=== PATIENT | female | born 1950 | race Caucasian/White ===

== ENCOUNTER 2016-05-14 21:40 | Inpatient (IN) | payer MEDICARE ==
[~2016-05-14] VITALS: Ht 152.4 cm; Wt 57.4 kg
[2016-05-14 22:35] LABS: APPEARANCE CLEAR (CLEAR); BILIRUBIN NEGATIVE (NEGATIVE); COLOR YELLOW (YELLOW); GLUCOSE 50 mg/dL (NEGATIVE); KETONE NEGATIVE (NEGATIVE); LEUKOCYTE ESTERASE NEGATIVE (NEGATIVE); NITRITE NEGATIVE (NEGATIVE); PROTEIN NEGATIVE (NEGATIVE); SPECIFIC GRAVITY 1.005 (1.005-1.020); UROBILINOGEN NORMAL (NORMAL)
[2016-05-14 23:14] LABS: BASOPHILS 0.3 % (0.0-2.0); EOSINOPHILS 0.1 % (0-7); HEMATOCRIT 35.8 % (36.0-48.0); HEMOGLOBIN 12.5 g/dL (12-16); IMMATURE GRANULOCYTES 0.3 % (0-5); LYMPHOCYTES 11.8 % (15-50); MCH 35.1 pg (26.0-34.0); MCHC 34.9 g/dL (31.0-37.0); MCV 100.6 fL (80.0-100.0); MONOCYTES 11.7 % (2-11); NEUTROPHILS 75.8 % (40-80); PLATELET COUNT 260 10x3/uL (130-400); RBC 3.56 10x6/uL (4.00-5.40); RDW 12.5 % (11.5-14.5); WBC 6.7 10x3/uL (4.8-10.8)
[2016-05-15] VITALS (23 sets, daily range): BP systolic 89–121; BP diastolic 52–93; Ht 152.4 cm; Wt 57.4 kg
[2016-05-15 00:01] LABS: ALKALINE PHOSPHATASE 138 U/L (46-116); ALT (SGPT) 35 U/L (10-68); BILIRUBIN - TOTAL 0.29 mg/dL (0.2-1.3); CALCIUM 8.8 mg/dL (8.5-10.1); CARBON DIOXIDE 29.4 mmol/L (21.0-32.0); CREATINE KINASE 77 UL (21-215); CREATININE - SERUM 0.8 mg/dL (0.6-1.3); MAGNESIUM - SERUM 1.7 mg/dL (1.8-2.4); POTASSIUM - SERUM 3.4 mmol/L (3.5-5.1); PRO BNP 339 pg/mL (0-125); PROTEIN - SERUM 7.4 g/dL (6.4-8.2); SODIUM 123 mmol/L (136-145); THYROID STIMULATING HORMONE 2.17 uIU/mL (0.36-3.74); UREA NITROGEN 6 mg/dL (7-18); eGFR NON AFRICAN AMERICAN 76 mL/min (90-120)
[2016-05-15 00:04] LABS: CALC OSMOLALITY 243 mosm/kg (275-300); CHLORIDE - SERUM 80 mmol/L (98-107); GLUCOSE 67 mg/dL (74-106); TROPONIN-I < 0.017 ng/mL (0.000-0.060)
[2016-05-15 00:36] LABS: PHENYTOIN (DILANTIN) 11.6 ug/mL (10.0-20.0)
[2016-05-15] MEDS ORDERED: ZANTAC300 MG PO (02:12)
--- NOTE | 2016-05-15 02:35 | NUR ---
PT ARRIVED TO ROOM 2311 VIA BED FROM ER. NO FAMILY WITH PT. PT AAOX4 SPEECH CLEAR ABLE TO MAKE NEEDS KNOWN. ADMISSION HISTORY AND ASSESSMENT COMPLETED. DX HYPOGLYCEMIA AND HYPONATREMIA.
--- NOTE | 2016-05-15 02:40 | NUR ---
CALL PLACED TO ER TO CLARIFY ORDERS. NOTIFIED TO CALL DR. LEON WITH NEXT GLUCOSE AND NO OTHER ORDERS RECEIVED
[2016-05-15] MEDS ORDERED: LISINOPRIL10 MG PO (02:53)
[2016-05-15] MEDS ORDERED: TENORMIN50 MG PO (02:55)
[2016-05-15] MEDS ORDERED: BUSPAR10 MG PO (02:57)
[2016-05-15] MEDS ORDERED: PLAVIX75 MG PO (02:58)
[2016-05-15] MEDS ORDERED: DILANTIN100 MG PO (02:58)
[2016-05-15 03:43] LABS: ANION GAP 11.6 mmol/L (8-16); CALCIUM 8.7 mg/dL (8.5-10.1); CARBON DIOXIDE 28.5 mmol/L (21.0-32.0); CREATININE - SERUM 0.9 mg/dL (0.6-1.3); POTASSIUM - SERUM 3.1 mmol/L (3.5-5.1)
--- NOTE | 2016-05-15 03:45 | NUR ---
FSBS [address] LEON, DR. VIDAL IS IN THE UNIT AND IS NOW HANDLING THIS PT'S ISSUE
--- NOTE | 2016-05-15 03:46 | NUR ---
F/C PLACED PER DOCTORS ORDER. 18F PER STERILE TECHNIQUE WITH IMMEDIATE RETURN CLEAR YELLOW URINE. PT TOLERATED WELL URINE SPECIMEN SENT TO LAB PER PROTOCOL
--- NOTE | 2016-05-15 04:30 | NUR ---
PT LEAVING UNIT FOR CT OF HEAD
--- NOTE | 2016-05-15 04:45 | NUR ---
PT RETURNING FROM CT. TOLERATED WELL
--- NOTE | 2016-05-15 05:59 | NUR ---
FSBS 242 CONT TO MONITOR
[2016-05-15 07:16] LABS: BASOPHILS 0 % (0.0-2.0); EOSINOPHILS 0 % (0-7); HEMOGLOBIN 10.9 g/dL (12-16); MCH 34.8 pg (26.0-34.0); MCHC 35.2 g/dL (31.0-37.0); MEAN PLATELET VOLUME 9.2 fL (7.4-10.4); MONOCYTES 5.8 % (2-11); NEUTROPHILS 85.2 % (40-80); PLATELET COUNT 226 10x3/uL (130-400); RBC 3.13 10x6/uL (4.00-5.40); RDW 12.5 % (11.5-14.5)
[2016-05-15 07:24] LABS: HEMOGLOBIN A1C 4.5 % (4.8-6.0)
[2016-05-15 07:30] LABS: WBC 3.1 10x3/uL (4.8-10.8)
[2016-05-15 07:42] LABS: THYROID STIMULATING HORMONE 1.54 uIU/mL (0.36-3.74)
[2016-05-15 07:47] LABS: PHENYTOIN (DILANTIN) 8.2 ug/mL (10.0-20.0)
--- NOTE | 2016-05-15 12:47 | NUR ---
Is the patient Alert and Oriented? Yes 0 * How many steps to enter\\exit or inside your home? RAMP 0 * PCP PATIENT STATES,"YOU WILL NEED TO LOOK AT MY MEDICINE BOTTLES BECAUSE I HAVE SO MANY DOCTORS I CAN'T REMEMBER." 0 * Pharmacy "[facility] [address]. NOT SURE WHICH ONE. WILL NEED TO ASK . HE'S THE ONE THAT PICKS UP THE MEDS." 0 * Preadmission Environment Home with Family 0 * ADLs Partial Dependent 0 * Partial ADLs (Assistance needed) Ambulation Bathing Dressing Toileting 0 * Equipment None 0 * List name and contact numbers for known caregivers / representatives who currently or will assist patient after discharge: : LESA PATIENT STATES RECENT NUMBER CHANGE AND SHE DOES NOT KNOW THE NUMBER 0 * Community resources currently utilized None 0 * Additional services required to return to the preadmission environment? No 0 * Can the patient safely return to the preadmission environment? Yes 0 * Has this patient been hospitalized within the prior 30 days at any hospital? No PATIENT IS SITTING AT BEDSIDE IN CHAIR EATING LUNCH. SHE STATES SHE LIVES AT HOME WITH HER , LESA AND HER SON. SHE DOES NOT KNOW THE PHONE NUMBER BECAUSE SHE JUST RECENTLY CHANGED THE NUMBER. WHEN ASKED ABOUT HER PCP SHE STATES SHE HAS SO MANY WE WOULD HAVE TO CHECK HER MEDICATION BOTTLES. PATIENT STATES SHE GETS HER MEDS AT [facility] ON [address] BUT SHE DOES NOT KNOW WHICH ONE. WE WILL HAVE TO ASK HER SINCE HE GOES TO PHILOSOPHY INSTRUCTOR THE MEDS ACCORDING TO PATIENT. PATIENT DENIES USE OF EQUIPMENT AND DENEIS HAVING HOME HEALTH CARE. SHE STATES WHEN SHE FEELS OK SHE COOKS AND TAKES CARE OF HER NEEDS. THAKUR SHE IS NOT FEELING GOOD HER DOES IT. PATIENT STATES THERE IS A RAMP TO ENTER HER HOME. DISCHARGE NEEDS TO BE DETERMINED.
--- NOTE | 2016-05-15 15:54 | HP ---
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 The patient was in her usual state of health. Evidently, ambulance was called at home for a syncopal episode and they found her to have a hypoglycemic episode occurring. The patient was found to have a blood sugar of 42. Amp of D50 was given at the scene. The patient states that she had not felt well for the last 2 days and did not eat anything. She had felt extremely weak for the last 24 hours. There was evidence of seizure activity at home. She is on seizure medication. Blood sugar was rechecked after amp of D50 was given and sugar was 167. She was checked a second time in the ER and was found to be low blood sugar second time and was given 2 more treatments for the low blood sugar episode before her blood sugar stabilized and is now running in the 160-220 range. Her recheck Accu-Chek in the ER was 73, was treated with 150 cc of fluid with D5W. Treatment was given, blood sugar was checked again and was found to have a low blood sugar and was given another half amp of D50 as well as oral potassium and IV magnesium. PAST MEDICAL HISTORY: Significant for an NC. She also had a CVA. She has had seizure disorder since then. The patient has high blood pressure, arrhythmia, anxiety, GERD. PAST SURGICAL HISTORY: Includes gastric bypass. She also has had 3 children. ALLERGIES: ASPIRIN. MEDICATIONS: Zantac, lisinopril, atenolol BuSpar, Dilantin, and Plavix. HABITS: The patient does not smoke, does not drink alcohol. REVIEW OF SYSTEMS: Indicates no fever or chills. She has had some cough. No shortness of breath, no headaches, no nausea after the Zofran, but had some prior to that. No rashes. PHYSICAL EXAMINATION: GENERAL: The patient has been admitted to the ICU at the present time. VITAL SIGNS: At the time of history and physical, her blood pressure 106/52, heart rate 98 and 98% saturation on room air. HEENT: Her pupils are equally round and reactive to light. Extraocular movements intact. NECK: No cervical or pharyngeal adenopathy noted. No nuchal rigidity. LUNGS: Coarse breath sounds. HEART: Regular rate and rhythm with a I/ systolic ejection murmur. ABDOMEN: Soft, nontender, positive bowel sounds. No hepatosplenomegaly, no masses. EXTREMITIES: She does have evidence of tattoos that are present. Bruise on the right neck is noted. NEUROLOGIC: Sensation is intact. She is able to move all 4 extremities and has good radial pulse. ASSESSMENT: 1. Syncopal episode. HISTORY AND PHYSICAL [id number] ABIODUN VOSS 2. Hypoglycemia, persistent. 3. Possible metabolic acidosis. 4. Hyponatremia. 5. Seizure activity. 6. Old cerebrovascular accident. 7. History of myocardial infarction. 8. Hypotension. PLAN: The patient to be monitored at the present time, slowly replace her sodium to prevent seizures. Neurology consultation will be obtained with Dr. Ibrahim. Nephrology consultation will be obtained with Dr. Amador. We will monitor her sugars and treat appropriately. Check laboratory workup on the a.m. labs. TRANSINT:[id number] Voice Confirmation ID: [id number] DOCUMENT ID: [id number] JOAO VIDAL MD at 1554 CC: [id number] DICTATION DATE: 05/15/165 HOT CELL TECHNICIAN: 05/15/16 0934 [facility] [address] [place] [address]
[2016-05-15 16:20] LABS: CALC OSMOLALITY 246 mosm/kg (275-300); CALCIUM 8.7 mg/dL (8.5-10.1); CARBON DIOXIDE 28.3 mmol/L (21.0-32.0); CHLORIDE - SERUM 87 mmol/L (98-107); CREATININE - SERUM 0.7 mg/dL (0.6-1.3); GLUCOSE 157 mg/dL (74-106); SODIUM 122 mmol/L (136-145); UREA NITROGEN 6 mg/dL (7-18); eGFR NON AFRICAN AMERICAN 89 mL/min (90-120)
[2016-05-15 16:28] LABS: POTASSIUM - SERUM 3.9 mmol/L (3.5-5.1)
--- NOTE | 2016-05-15 16:36 | NUR ---
4960-CALLED DR WOO WITH RESULTS OF BMP ORDERED, REC'D NEW ORDERS TO INCREASE NS DRIP TO 75CC/HR.
--- NOTE | 2016-05-15 19:00 | NUR ---
REPORT RECEIVED AND CARE ASSUMED. PT RESTING IN BED AA0X4. ASSESSMENT PER FLOWSHEET
--- NOTE | 2016-05-15 21:00 | NUR ---
MEDS GIVEN WITHOUT DIFFICULTY. PT TEACHING DONE ABOUT MEDS. PT WITH BASIC UNDERSTANDING OF PURPOSE OF MEDS BUT LACKS KNOWLEDGE OF DOSES ETC. STATING HER KEEPS TRACK OF THAT FOR HER. NO SWALLOWING DIFFICULTY. PT REMAINS ON 1000CC FLUID RESTRICTION WITH NOTE POSTED AT DOORWAY TO INFORM STAFF
--- NOTE | 2016-05-15 23:00 | NUR ---
REASSESSMENT COMPLETED WITH NO SIGNIFICANT CHANGES. HS SNACK ATE 100%. PT REFUSES BATH AT THIS TIME. WILL OFFER AGAIN IN THE MORNING
[2016-05-16] VITALS (14 sets, daily range): BP systolic 102–149; BP diastolic 51–82
--- NOTE | 2016-05-16 01:00 | NUR ---
PT AWAKE. NOT SLEEPING WELL TONIGHT. CALM COOPERATIVE. WATCHING TV. ABLE TO REPOSITION SELF. PROMPTED TO DO SO AT LEAST EVERY 2 HOURS IF HASN'T DONE SO INDEPENDENTLY
--- NOTE | 2016-05-16 01:00 | NUR ---
CONTINUE TO PROVIDE TOTAL CARE FOR PT. RIGHT UPPER ARM PICC LINE DRESSING CHANGED WITH STERILE TECHNIQUE. DRESSING DATED AND LABELED. SITE WNL NO REDNESS OR EDEMA.
--- NOTE | 2016-05-16 03:00 | NUR ---
SHIFT REASSESSMENT COMPLETED WITH NO SIGNIFICANT CHANGES
--- NOTE | 2016-05-16 03:00 | NUR ---
SHIFT REASSESSMENT COMPLETED. NO SIGNIFICANT CHANGES. PT IS AT 50 MCG /KG/MIN OF DIPROVAN. FIO2 WAS TURNED TO 90% BY RT BASED ON ABG RESULTS. RECTAL TUBE WAS IRRIGATED WITH 20CC OF WATER. NO OTHER CHANGES
--- NOTE | 2016-05-16 03:30 | NUR ---
MASTER OCEAN YACHT AT BEDSIDE FOR AM LAB DRAW
--- NOTE | 2016-05-16 03:40 | NUR ---
CONTINUE TO MONITOR FSBS NOW IS 148. PT HAS NOT SLEPT WELL TONIGHT STATING SHE SLEPT EARLIER. DENIES NEEDS.
[2016-05-16 04:43] LABS: BASOPHILS 0.6 % (0.0-2.0); EOSINOPHILS 0.4 % (0-7); HEMATOCRIT 28.5 % (36.0-48.0); HEMOGLOBIN 9.9 g/dL (12-16); IMMATURE GRANULOCYTES 0.2 % (0-5); LYMPHOCYTES 27.3 % (15-50); MCHC 34.7 g/dL (31.0-37.0); MCV 100.7 fL (80.0-100.0); MEAN PLATELET VOLUME 9.3 fL (7.4-10.4); MONOCYTES 14.8 % (2-11); NEUTROPHILS 56.7 % (40-80); PLATELET COUNT 215 10x3/uL (130-400); RBC 2.83 10x6/uL (4.00-5.40); RDW 12.7 % (11.5-14.5)
[2016-05-16 04:47] LABS: WBC 5.3 10x3/uL (4.8-10.8)
[2016-05-16 05:12] LABS: ALBUMIN 3.1 g/dL (3.4-5.0); ALKALINE PHOSPHATASE 98 U/L (46-116); ALT (SGPT) 25 U/L (10-68); CALC OSMOLALITY 254 mosm/kg (275-300); CALCIUM 8.3 mg/dL (8.5-10.1); CARBON DIOXIDE 27.6 mmol/L (21.0-32.0); CHLORIDE - SERUM 93 mmol/L (98-107); CREATININE - SERUM 0.6 mg/dL (0.6-1.3); GLUCOSE 124 mg/dL (74-106); POTASSIUM - SERUM 3.8 mmol/L (3.5-5.1); PROTEIN - SERUM 5.9 g/dL (6.4-8.2); SODIUM 128 mmol/L (136-145); UREA NITROGEN 5 mg/dL (7-18); eGFR NON AFRICAN AMERICAN > 90 mL/min (90-120)
--- NOTE | 2016-05-16 06:24 | NUR ---
PT HAS HAD SOME MILD CONFUSION ABOUT SITUATION THIS AM. HAVING DIFFICULTY UNDERSTANDING REASON FOR BEING HOSPITALIZED ALTHOUGH EASILY ABLE TO STATE CORRECT DATE, , NAME AND THE FACT THAT SHE IS AT THE HOSPITAL. TRYING TO GET OOB AND REMOVING EQUIPMENT. REORIENTATED SEVERAL TIMES. BED ALARM IS ON. NA+ HAS IMPROVED AND GLUCOSE HAS BEEN ACCEPTABLE ALL NIGHT. NO SEIZURE ACTIVITY SINCE ADMISSION.
--- NOTE | 2016-05-16 07:30 | NUR ---
REPORT RECD PT CARE ASSUMED. PT IS ALERT AND ORIENTED X 3, DISORIENTED TO SITUATION. S1S2 NOTED, SR PER CM. LUNG SOUNDS DIMINISHED BILAT. PPP-WEAK, SOUSA/SCDS IN PLACE. SEE SHIFT ASSESSMENT FOR FURTHER DETAIL. BED IN LOW POSITION, CALL LIGHT AND PERSONAL ITEMS IN REACH. VSS WILL CONTINUE TO MONITOR.
--- NOTE | 2016-05-16 08:05 | NUR ---
BREAKFAST TRAY PROVIDED. PT ABLE TO INDEPENDENLY FEED. PT DOES PULL AT WIRES AND TUBING AND IS REMINDED NOT TO DO SO.
--- NOTE | 2016-05-16 10:24 | NUR ---
PT IS CONFUSED AND PULLS OUT IV. PT HAS NO MEMORY OF PULLING OUT IV. PT UP WITH PT, AMBULATING WELL. WILL RESITE.
--- NOTE | 2016-05-16 11:43 | NUR ---
IV access-20 gauge accucath inserted in right upper arm after multiple attempts. Mague Tadeo RN
--- NOTE | 2016-05-16 12:00 | NUR ---
PT PROVIDED WITH BREAKFAST TRAY. PT FEEDS INDEPENDENTLY, CONSUMING MAJORITY OF MEAL. PT REMAINS CONFUSED TO SITUATION AND OFTEN ATTEMPTS TO GET OUT OF BED WITH OUT OF ASSISTANCE. BED ALARM IN PLACE.
--- NOTE | 2016-05-16 14:00 | NUR ---
PT RESTING QUIETLY IN BED. NO DISTRESS NOTED, VSS, WILL CONTINUE TO MONITOR.
--- NOTE | 2016-05-16 23:59 | NUR ---
RIGHT UPPER IV PULLED OUT CATHETER INTACT. IV 20 GUAGE IV RESITED LEFT HAND BY HANH MILES. IV FLUIDS RESUMED. ALERT AND ORIENTED X4. LAST FSBS 138. PT DRINKING SPRITE AND HAD MIRLANDE CRACKERS FOR SNACK. NO OTHER NEEDS. WILL REASSESS AND CONTINUE TO MONITOR.
--- NOTE | 2016-05-17 01:30 | NUR ---
PT PULLED OUT IV AGAIN. PT IS ORIENTED X4 BUT APPEARS TO HAVE SOME SHORT TERM MEMORY LOSS. PT KEEPS COMING OUT OF ROOM INTO BREWER. STATES SHE IS UNABLE TO SLEEP AND IS IN THERE "ALL ALONE". PT SITTING IN CHAIR AT NURSE STATION AT THIS TIME. WILL CONTINUE TO MONITOR.
[2016-05-17 01:31] VITALS: BP 157/84
[2016-05-17 04:40] VITALS: BP 175/102
[2016-05-17 07:01] LABS: BASOPHILS 0.5 % (0.0-2.0); EOSINOPHILS 1.2 % (0-7); HEMATOCRIT 32.1 % (36.0-48.0); IMMATURE GRANULOCYTES 0.2 % (0-5); LYMPHOCYTES 20.7 % (15-50); MCHC 34.3 g/dL (31.0-37.0); MCV 102.2 fL (80.0-100.0); MEAN PLATELET VOLUME 9.5 fL (7.4-10.4); MONOCYTES 13.5 % (2-11); NEUTROPHILS 63.9 % (40-80); PLATELET COUNT 227 10x3/uL (130-400); RBC 3.14 10x6/uL (4.00-5.40); RDW 12.9 % (11.5-14.5); WBC 5.7 10x3/uL (4.8-10.8)
[2016-05-17 07:02] LABS: CALC OSMOLALITY 259 mosm/kg (275-300); CALCIUM 9.4 mg/dL (8.5-10.1); CARBON DIOXIDE 23.6 mmol/L (21.0-32.0); CHLORIDE - SERUM 93 mmol/L (98-107); CREATININE - SERUM 0.6 mg/dL (0.6-1.3); GLUCOSE 110 mg/dL (74-106); POTASSIUM - SERUM 3.5 mmol/L (3.5-5.1); SODIUM 130 mmol/L (136-145); eGFR NON AFRICAN AMERICAN > 90 mL/min (90-120)
[2016-05-17 07:04] LABS: UREA NITROGEN 7 mg/dL (7-18)
--- NOTE | 2016-05-17 07:25 | NUR ---
AM ROUNDING- PT SITTING UP IN BED RECEIVING BREATHING TX CURRENTLY. PT IS ALERT AND ORIENTED PER REPORT BUT CONFUSED AT TIMES. NO IV ACCESS BECAUSE PER REPORT FROM TOOLMAKER GRADE THREE NURSE LILIBETH, PT HAS PULLED OUT TWO OF HER IVS. IGOR WAS CALLED AND STATED TO CALL DR. WOO TO SEE ABOUT SODIUM LEVEL FOR MAYBE RECEIVING SODIUM TABLETS SINCE DOES NOT HAVE NS RUNNING BECAUSE NO IV AND PT KEEPS PULLING THEM OUT. NO MONITOR. ROOM AIR. PT IS UP AD ANAM PER REPORT. NON-SKID SOCKS ARE ON. YELLOW FALL BAND IS ON. NO NEED AT CURRENT TIME. WILL CALL DR. WOO TO SEE ABOUT SODIUM LEVELS AND WHAT TO FURTHER DO. WILL CONTINUE TO MONITOR.
[2016-05-17 08:22] VITALS: BP 151/85
--- NOTE | 2016-05-17 10:01 | NUR ---
0945- PT UP WALKING WITH PHYSICAL THERAPY.
[2016-05-17 11:00] VITALS: BP 114/59
--- NOTE | 2016-05-17 11:26 | NUR ---
PLACED PT ON MONITOR ORDERED, SHOWING ST, HR 107.
--- NOTE | 2016-05-17 11:29 | NUR ---
DR. OWO ON UNIT, NOTIFIED HIM OF PT NOT HAVING IV ACCESS DUE TO HER PULLING HER IV OUT AGAIN ON ASSISTANT IN NURSING. TOLD DR. WOO THAT PT IS HERE FOR HYPONATREMIA AND IS RECEIVING IV FLUIDS NS AND THAT IS THE ONLY IV MEDICAION PT IS CURRENTLY ON. INFORMED DR. WOO THAT PTS NA+ IS [address] WOO STATED "THAT IS FINE". NO NEW ORDERS RECEIVED AND DR. WOO IS AWARE THAT PT DOES NOT HAVE IV ACCESS.
--- NOTE | 2016-05-17 14:15 | NUR ---
Nutrition follow-up: Diet: low sodium 1000 ml free water restrictions po intake ~75% of meals Labs reviewed RDN visited with pt during meal rounds. Pt is happy with meals; reading paper. No c/o at this time. RDN following.
[2016-05-17 16:00] VITALS: BP 121/72
--- NOTE | 2016-05-17 17:55 | NUR ---
PT SITTING ON SIDE OF BED EATING DINNER. AND SON AT BEDSIDE. NO NEED AT CURRENT TIME. WILL CONTINUE TO MONITOR.
--- NOTE | 2016-05-17 19:21 | NUR ---
RESUMED CARE OF PT, PT IS UP WALKING AROUND ROOM, [id number], DENIES ANY NEEDS AT THIS TIME, WILL CONTINUE TO MONITOR
[2016-05-17 19:41] VITALS: BP 120/66
--- NOTE | 2016-05-17 19:41 | NUR ---
TILE PROFESSIONAL AT BEDSIDE TO OBTAIN VITALS, CALL LIGHT IN REACH. WILL CONTINUE WITH PLAN OF CARE.
[2016-05-18 01:20] VITALS: BP 132/74
[2016-05-18 04:33] VITALS: BP 124/73
[2016-05-18 04:55] LABS: CALC OSMOLALITY 263 mosm/kg (275-300); CALCIUM 8.8 mg/dL (8.5-10.1); CARBON DIOXIDE 27.3 mmol/L (21.0-32.0); CHLORIDE - SERUM 97 mmol/L (98-107); CREATININE - SERUM 0.7 mg/dL (0.6-1.3); GLUCOSE 91 mg/dL (74-106); POTASSIUM - SERUM 3.7 mmol/L (3.5-5.1); SODIUM 132 mmol/L (136-145); eGFR NON AFRICAN AMERICAN 89 mL/min (90-120)
[2016-05-18 04:59] LABS: UREA NITROGEN 9 mg/dL (7-18)
--- NOTE | 2016-05-18 07:08 | NUR ---
AM ROUNDING- PT SITTING UP IN BED WITH EYES OPEN CURRENTLY RECEIVING A BREATHING TX. PT STATED "IM SICK OF THIS THING, I'VE HAD THREE OF THESE THIS MORNING", PT REFFERING TO BREATHING TX. PT TOOK OFF BREATHING TX. PT HAS NO IV ACCESS, DR. WOO AND IGOR DUVAL, HAT AND CAP DRYING ROOM ATTENDANT IS AWARE OF THIS. PER REPORT, PT REFUSES HEART MONITOR. ON ROOM AIR. PT IS UP AD ANAM. PT IS CURRENTLY REQUESTING COFFEE, PT IS ON A 1,000CC FLUID RESTRICION SO INFORMED PT TO TRY TO WAIT UNTIL BREAKFAST TRAYS COME TO HAVE COFFEE. NO NEED AT CURRENT TIME. WILL CONTINUE TO MONITOR.
[2016-05-18 08:01] VITALS: BP 135/70
[2016-05-18 11:46] VITALS: BP 115/60
[2016-05-18] MEDS ORDERED: THERAGRAN M [BK1 TAB PO (12:14)
--- NOTE | 2016-05-18 12:39 | NUR ---
Patient Name: ABIODUN VOSS Encounter No: [id number] : 1950 Primary Insurance: MEDICARE A & B Anticipated DC Date: 05-18-2016 Planned Disposition: Home DCP follow-up note: CM MET WITH PT IN ROOM TO DISCUSS DISCHARGE NEEDS AND PLANNING. CM DISCUSSED AVAILABILITY OF HOME HEALTH, REHAB SERVICES AND MEDICAL EQUIPMENT. PT DENIES DISCHARGE NEEDS. SPOUSE TO TRANSPORT HOME AT DISCHARGE. IMPORTANT MESSAGE FROM MEDICARE PROVIDED AND EXPLAINED. PT DOES NOT KNOW WHO HER PRIMARY CARE DOCTOR IS, SHE INFORMED CM THAT HE WOULD KNOW AND TO HAVE HIM BRING CLOTHES TO PICK HER UP TODAY. Juan Marte, CASE MANAGEMENT
[2016-05-18 15:56] VITALS: BP 121/62
--- NOTE | 2016-05-18 16:11 | NUR ---
PTS D/C PAPERWORK EXPLAINED TO PT AND , SIGNED BY , AND PLACED IN CHART. AWAITING PT TO GET BELONGINGS TOGETHER, WILL GET WHEELCHAIR TO TAKE PT DOWN TO BE D/C.
--- NOTE | 2016-05-18 16:28 | NUR ---
PT D/C HOME WITH VIA WHEELCHAIR.
== END 2016-05-18 16:30 | disposition home or self-care (01) | DRG 640 ==
LOC: D.ER 21:40 → D.ICU 05-15 00:38 → D.M2 05-15 00:38
PROVIDERS: Emergency Medicine; Internal Medicine; ADMIT Family Medicine
PROC: 0T9B70Z Drainage of Bladder with Drainage Device, Via Natural or Artificial Opening (ICD-10-PCS; principal; 2016-05-15)
DX: E87.1 Hypo-osmolality and hyponatremia (principal); G93.40 Encephalopathy, unspecified; E16.2 Hypoglycemia, unspecified; I95.9 Hypotension, unspecified; E87.2 Acidosis; K21.9 Gastro-esophageal reflux disease without esophagitis; F41.9 Anxiety disorder, unspecified; G40.909 Epilepsy, unspecified, not intractable, without status epilepticus; D64.9 Anemia, unspecified; I25.2 Old myocardial infarction; Z86.73 Personal history of transient ischemic attack (TIA), and cerebral infarction without residual deficits; Z87.891 Personal history of nicotine dependence

== ENCOUNTER 2016-07-12 18:13 | Inpatient (IN) | payer MEDICARE ==
[~2016-07-12] VITALS: Ht 154.9 cm; Wt 60.3 kg
[~2016-07-12 18:13] MED LIST: BUSPAR10 MG PO; DILANTIN100 MG PO; LISINOPRIL10 MG PO; PLAVIX75 MG PO; TENORMIN50 MG PO; THERAGRAN M [BK1 TAB PO; ZANTAC300 MG PO
[2016-07-12 18:51] LABS: BASOPHILS 0.4 % (0.0-2.0); EOSINOPHILS 1.1 % (0-7); IMMATURE GRANULOCYTES 0.2 % (0-5); LYMPHOCYTES 13.8 % (15-50); MCH 33.7 pg (26.0-34.0); MCHC 33.7 g/dL (31.0-37.0); MEAN PLATELET VOLUME 8.7 fL (7.4-10.4); NEUTROPHILS 77.5 % (40-80); PLATELET COUNT 194 10x3/uL (130-400); RDW 13.2 % (11.5-14.5); WBC 8.1 10x3/uL (4.8-10.8)
[2016-07-12 18:56] LABS: HEMATOCRIT 18.4 % (36.0-48.0); HEMOGLOBIN 6.2 g/dL (12-16); RBC 1.84 10x6/uL (4.00-5.40)
[2016-07-12 18:58] LABS: INR 1.51 (0.85-1.17); PROTIME 18.1 SECONDS (11.6-15.0)
[2016-07-12 18:59] LABS: APTT 33.3 SECONDS (22.8-39.4)
[2016-07-12 19:11] LABS: CALC OSMOLALITY 273 mosm/kg (275-300); CARBON DIOXIDE 16.9 mmol/L (21.0-32.0); CHLORIDE - SERUM 108 mmol/L (98-107); CREATININE - SERUM 0.5 mg/dL (0.6-1.3); GLUCOSE 107 mg/dL (74-106); PHENYTOIN (DILANTIN) 19.3 ug/mL (10.0-20.0); SODIUM 138 mmol/L (136-145); UREA NITROGEN 6 mg/dL (7-18); eGFR NON AFRICAN AMERICAN > 90 mL/min (90-120)
[2016-07-12 19:20] LABS: CALCIUM 5.8 mg/dL (8.5-10.1); POTASSIUM - SERUM 2.9 mmol/L (3.5-5.1)
[2016-07-12 21:59] VITALS: BP 96/35; BMI 25.1
[2016-07-12 22:00] VITALS: BP 88/54
--- NOTE | 2016-07-12 22:17 | NUR ---
PT RECIEVED. VS FOLLOWS BP 96/55 HR 70 NSR O2 VIA NC 2L O2 SAT 95% RR 12 NON LABORED. PT CONFUSED TO SITUATION. BED ALARM ON. WILL CONTINUE TO MONITOR.
[2016-07-12 23:00] VITALS: BP 102/54
[2016-07-13] VITALS (21 sets, daily range): BP systolic 106–141; BP diastolic 49–75; Ht 154.9 cm; Wt 60.3 kg
--- NOTE | 2016-07-13 01:21 | NUR ---
PT CONFUSED GIVEN ICE CHIPS PER REQUEST. REPOSITIONED ON L SIDE FOR COMFORT. DENIES FURTHER NEES.
--- NOTE | 2016-07-13 03:44 | NUR ---
REASSESSMENT COMPLETE PER FLOW SHEET. VSS. NO NEW CHANGES. PT SLEEPING COMFORTABLY.
[2016-07-13 06:30] LABS: BASOPHILS 0.2 % (0.0-2.0); LYMPHOCYTES 21.8 % (15-50); MCHC 34.9 g/dL (31.0-37.0); MEAN PLATELET VOLUME 9.5 fL (7.4-10.4); MONOCYTES 9.6 % (2-11); NEUTROPHILS 67.4 % (40-80); RDW 18.1 % (11.5-14.5)
[2016-07-13 06:55] LABS: ALBUMIN 2.7 g/dL (3.4-5.0); ALKALINE PHOSPHATASE 84 U/L (46-116); ALT (SGPT) 19 U/L (10-68); BILIRUBIN - TOTAL 0.55 mg/dL (0.2-1.3); CALC OSMOLALITY 266 mosm/kg (275-300); CHLORIDE - SERUM 103 mmol/L (98-107); CREATININE - SERUM 0.6 mg/dL (0.6-1.3); GLUCOSE 93 mg/dL (74-106); MAGNESIUM - SERUM 1.5 mg/dL (1.8-2.4); PHOSPHOROUS 3.2 mg/dL (2.5-4.9); PROTEIN - SERUM 5.3 g/dL (6.4-8.2); SODIUM 135 mmol/L (136-145); UREA NITROGEN 5 mg/dL (7-18); eGFR NON AFRICAN AMERICAN > 90 mL/min (90-120)
--- NOTE | 2016-07-13 07:00 | NUR ---
ASSESSMENT COMPLETE PER FLOWSHEET. PT CONFUSED. WANTING TO DRINK COFFEE. INSTRUCT NPO. PT DOES NOT UNDERSTAND THAT THE MD DOES NOT WANT HER TO HAVE NOTHING TO EAT OR DRINK.
[2016-07-13 07:01] LABS: CALCIUM 7.5 mg/dL (8.5-10.1); CARBON DIOXIDE 25.6 mmol/L (21.0-32.0); POTASSIUM - SERUM 3.9 mmol/L (3.5-5.1)
[2016-07-13 07:02] LABS: RBC 2.78 10x6/uL (4.00-5.40); WBC 4.8 10x3/uL (4.8-10.8)
[2016-07-13 07:03] LABS: HEMATOCRIT 25.5 % (36.0-48.0); HEMOGLOBIN 8.9 g/dL (12-16); MCV 91.7 fL (80.0-100.0); PLATELET COUNT 284 10x3/uL (130-400)
--- NOTE | 2016-07-13 10:25 | NUR ---
PT RESTING, WATCHING TELEVISION. NO DISTRESS NOTED. KEEPS ASKING FOR FOOD
--- NOTE | 2016-07-13 11:10 | NUR ---
0884-RECIEVED FROM DISTRIBUTOR SALES MANAGER AWAKE AND ALERT ACCOMPANIED BY TEAM-R WRIST T-BAND IN PLACE AND NOTED [id number] HEMATOMA-NO TINGLING TO FINGER TIPS GOOD COLOUR-ARM BOARD IN PLACE-KBRN
--- NOTE | 2016-07-13 11:15 | NUR ---
11:00 REASSESSMENT COMPLETE. PT AFEBRILE. ASKING FOR SOMETHING TO EAT OR DRINK. HAS BEEN GIVEN ICE CHIPS. EXPLAINED WHY IS NPO.
--- NOTE | 2016-07-13 12:30 | NUR ---
PT KEEPS ASKING FOR SOMETHING TO EAT. HAVE EXPLAINED WE ARE WAITING ON CT TO BE PERFORMED AND MUST REMAIN NPO.
--- NOTE | 2016-07-13 13:25 | NUR ---
PT OFF FLOOR FOR CT SCAN
--- NOTE | 2016-07-13 13:56 | NUR ---
PT BACK FROM CT. VITAL SIGN MONITORING HAS BEEN REAPPLIED TO PATIENT. SHE IS NOW RESTING WITH EYES CLOSED.
--- NOTE | 2016-07-13 14:03 | NUR ---
0715-RECIEVED AWAKE AND ALERT-REQUESTING COFFEE
--- NOTE | 2016-07-13 14:11 | NUR ---
RECIEVED AWAKE AND ALERT-NOT ABLE TO STATE SITUATION-STATING WANTS COFFEE-INFORMED OF EVENTS-AND CURRENT SITUATION-DR STEVENS AT BEDSIDE-STATED MED COLOR RECEIVER -NOT ABLE TO ASCERTAIN BASELINE LUCID-ABLE TO MOVE ALL EXTREMITIES-FOLLOWS COMMANDS-REQUESTING FAMILY
--- NOTE | 2016-07-13 15:37 | NUR ---
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 Yes * How many steps to enter\\exit or inside your home? NONE * PCP [facility] * Pharmacy [facility] [address] * Preadmission Environment Home with Family * ADLs Partial Dependent * Partial ADLs (Assistance needed) Ambulation * Equipment Walker * List name and contact numbers for known caregivers / representatives who currently or will assist patient after discharge: TALYA WALTERS, DTR, PT CANNOT PROVIDE NUMBER LESA VOSS, SPOUSE, PT CANNOT PROVIDE # BEVERLY VOSS, SON, PT CANNOT PROVIDE # NORMAN VOSS, DTR, [phone] (THIS NUMBER ONLY HAS VOICEMAIL THAT WHEN ANSWERS STATES TO LEAVE A VM FOR "RICHARD CONSTANTINO") * Community resources currently utilized None * Additional services required to return to the preadmission environment? Yes * Can the patient safely return to the preadmission environment? Yes * Has this patient been hospitalized within the prior 30 days at any hospital? No Discharge Planning Comments: CM MET WITH PATIENT TO ASSESS DC PLAN/NEEDS. PT IS VERY SLOW IN HER RESPONSES TO CM AND HAS VERY LIMITED INFORMATION REGARDING FAMILY CONTACT NUMBERS. SHE STATED THAT SHE LIVES AT HOME WITH HER FAMILY AT [address] [address] [facility] IN [place]. SHE STATED THAT SHE LIVES WITH HER SON AND DAUGHTER AND THAT SHE HAS ANOTHER DTR THAT LIVES IN [place] ABOVE HER AND THAT HER LIVES IN [place] BESIDE HER AND GIVES SAME ADDRESS FOR ALL FAMILY MEMBER. SHE IS INSISTANT THAT SHE PROVIDED HER DAUGHTER'S PHONE NUMBER WHEN COMING TO ED, BUT DTR LISTED ON FACE SHEET IS NOT THE SAME NAME THE DTR SHE INSISTS SHE LEFT CONTACT INFO. FOR. CM PLACED CALL TO NUMBER LISTED FOR HER DTR NAMED NORMAN VOSS WHICH PT VERBALLY CONFIRMED WAS CORRECT NAME AND NUMBER. ONLY A VOICEMAIL ANSWERED AND SAID TO LEAVE MESSAGE FOR "RICHARD DOUGIE". CM DID NOT LEAVE MESSAGE SINCE THIS NAME DID NOT MATCH NAME PT GAVE FOR HER DTR. CM LOOKED IN PT'S CHART AND THERE IS A CLINIC NOTE COPY FROM [facility] LISTING OTHER CONTACT NUMBERS FOR PATIENT, BUT NO NAMES. CM CALLED THE NUMBER LISTED FOR PT'S MOBILE NUMBER WHICH WAS [phone] AND ONLY VOICEMAIL ANSWERED FOR LESA VOSS WHO PT REPORTED WAS HER . CM LEFT VM ONLY GIVING INFORMATION THAT I WAS CALLING FROM [facility] AND ASKED FOR RETURN CALL WITH NO PT INFORMATION LEFT IN VM MESSAGE. CM ALSO CALLED NUMBER LISTED PRIMARY HOME NUMBER AND FEMALE ANSWERED, BUT HUNG UP PHONE SOON CM INFORMED I WAS CALLING FROM [facility]. PT STATED SHE WAS LIVING AT HOME AND THAT HER FAMILY ASSISTED HER. REPORTED SHE PLANS TO RETURN HOME WITH FAMILY IF SHE CAN GET IN TOUCH WITH THEM. CM INFORMED THAT I HAD ATTEMPTED PHONE CALLS TO HER LISTED NUMBER ON HER PCP CLINIC CHART COPY THAT IS IN HER CHART AND LEFT MESSAGE. CM MADE BEDSIDE RN, JIMENA, AWARE OF ABOVE AND THAT [facility] NUMBER WAS LEFT IN VM ON 'S PHONE TO CALL BACK. CM WILL FOLLOW AND ASSIST NEEDED, HOWEVER, PT DOES NOT VOICE ANY DC NEEDS AT THIS TIME OTHER THAN BEING ABLE TO GET IN TOUCH WITH HER FAMILY. [employer]ap Displays Analyst: Sabi Sanderson, RN, CM
--- NOTE | 2016-07-13 15:47 | NUR ---
DR MEADOWS CALLED TO CHECK ON PATIENT AND TO SEE IF CT RESULTS WERE BACK. NOT BACK OF PHONE CALL. HE ASKED THAT HE BE CALLED WHEN RESULTS ARE IN.
--- NOTE | 2016-07-13 15:47 | NUR ---
CM RECEIVED CALL BACK FROM PT'S , LESA VOSS, WHO STATED SHE DOES LIVE AT HOME WITH HIM AND HER SON. STATED BEST CONTACT NUMBER FOR HIM IS [phone] WHICH IS HIS CELL NUMBER. HE STATED THAT PT IS MOSTLY INDEPENDENT IN HER CARE AT HOME AND THAT FAMILY WILL BE AVAILABLE TO DRIVE HER HOME AT DISCHARGE. HE STATED HE PLANS TO COME TO [facility] FOR NEXT ICU VISITING HOUR AT 6 PM. RN NOTIFIED.
--- NOTE | 2016-07-13 16:04 | NUR ---
CT RESULTS IN. CALLED DR MEADOWS AND READ IMPRESSION FINDINGS. SAYS PATIENT IS CLEAR TO HAVE A DIET ORDER AT THIS TIME.
--- NOTE | 2016-07-13 17:20 | NUR ---
PT SITTING UP IN BED EATING DINNER. NO DISTRESS NOTED. BED LOW. CALL LIGHT IN REACH.
--- NOTE | 2016-07-13 18:31 | NUR ---
PT UP ON BEDPAN. C/O NEEDING TO GO AND CAN'T GO ON BEDPAN. WANTS UP TO TOILET. PT NOT ABLE TO ASSIST IN REPOSITIONING IN BED.
--- NOTE | 2016-07-13 19:15 | NUR ---
REPORT RECVD. CARE ASSUMED. INITIAL ASSMNT COMPLETED. SEE FLOWSHEET FOR ALL FINDINGS. AWAKE AND ALERT. CONFUSED R/T TIME AND SITUATION. SPEECH IS SLURRED. PERRLA NOTED. EQUAL BILATERAL STRENGTH ASSESSED. RESP EVEN AND UNLABORED. SCANT EXP WHEEZES TO ISIDORO. SPO2 97% ON O2 AT 2 LPM NC. SR ON THE MONITOR. PULSES PALP. SCDS IN USE. F/C PATENT WITH CONCENTRATED UOP. ABD SOFT, BSA X4. AFEBRILE. HOB UP. C/L IN REACH. BED ALARM ON. ATTEMPTS TO GET OOB. INCREASED OBSERVATION IN PROGRESS. CONT CURRENT POC.
--- NOTE | 2016-07-13 21:00 | NUR ---
NO VISITORS. REMAINS CONFUSED. ATTEMPTS TO GET OOB AND PULL CVL AND F.C REORIENTED AND REDIRECTED. VSS. BED ALARM ON. CONT POC.
--- NOTE | 2016-07-13 23:15 | NUR ---
REASSESSMENT COMPLETED. SEE FLOWSHEET FOR ALL FINDINGS. AWAKE AND ALERT. CONFUSED R/T TIME AND SITUATION. SPEECH IS SLURRED. PERRLA NOTED. EQUAL BILATERAL STRENGTH ASSESSED. RESP EVEN AND UNLABORED. SCANT EXP WHEEZES TO ISIDORO. SPO2 97% ON O2 AT 2 LPM NC. SR ON THE MONITOR. PULSES PALP. SCDS IN USE. F/C PATENT WITH CONCENTRATED UOP. ABD SOFT, BSA X4. AFEBRILE. HOB UP. C/L IN REACH. BED ALARM ON. ATTEMPTS TO GET OOB. INCREASED OBSERVATION IN PROGRESS. CONT CURRENT POC.
[2016-07-14] VITALS (25 sets, daily range): BP systolic 117–157; BP diastolic 63–95
--- NOTE | 2016-07-14 00:22 | NUR ---
ATTEMPTING TO REMOVE CVL AND F/C AFTER SEVERAL ATTEMPTS TO REORIENT AND REDIRECT. REMAINS CONFUSED AND UNABLE TO MAINTAIN SAFETY. RESTRAINTS PER PROTOCOL PER DR STEVENS.
--- NOTE | 2016-07-14 00:30 | NUR ---
SPOKE WITH PT'S DAUGHTER VIA PHONE. EDUCATED R/T USE OF RESTRAINTS. FAMILY REQUESTS ASSISTANCE WITH PLACEMENT FOR ETOH ABUSE AND "DETOX"...STATES PT IS A DAILY DRINKER AND FALLS DUE TO BEING "DRUNK." CONSULT FOR CASE MANAGEMENT FOR PLACEMENT AND D/C PLANNING.
--- NOTE | 2016-07-14 03:15 | NUR ---
REASSESSMENT COMPLETED. SEE FLOWSHEET FOR ALL FINDINGS. AWAKE AND ALERT. CONFUSED R/T TIME AND SITUATION. SPEECH IS SLURRED. PERRLA NOTED. EQUAL BILATERAL STRENGTH ASSESSED. RESTRAINTS IN USE FOR SAFETY. RESTLESS, DISRUPTIVE, DEMANDING. YELLS OUT. RESP EVEN AND UNLABORED. SCANT EXP WHEEZES TO ISIDORO. SPO2 97% ON O2 AT 2 LPM NC. SR ON THE MONITOR. PULSES PALP. SCDS IN USE. F/C PATENT WITH CONCENTRATED UOP. ABD SOFT, BSA X4. AFEBRILE. HOB UP. C/L IN REACH. BED ALARM ON. ATTEMPTS TO GET OOB. INCREASED OBSERVATION IN PROGRESS. CONT CURRENT POC.
[2016-07-14 04:32] LABS: BASOPHILS 0.6 % (0.0-2.0); EOSINOPHILS 2.1 % (0-7); HEMATOCRIT 27.2 % (36.0-48.0); HEMOGLOBIN 9.3 g/dL (12-16); IMMATURE GRANULOCYTES 0.2 % (0-5); LYMPHOCYTES 13.7 % (15-50); MCH 31.8 pg (26.0-34.0); MCHC 34.2 g/dL (31.0-37.0); MCV 93.2 fL (80.0-100.0); MEAN PLATELET VOLUME 9.3 fL (7.4-10.4); MONOCYTES 10.4 % (2-11); PLATELET COUNT 277 10x3/uL (130-400); RBC 2.92 10x6/uL (4.00-5.40); RDW 17.4 % (11.5-14.5); WBC 6.6 10x3/uL (4.8-10.8)
[2016-07-14 04:46] LABS: ALKALINE PHOSPHATASE 101 U/L (46-116); ALT (SGPT) 17 U/L (10-68); BILIRUBIN - TOTAL 0.45 mg/dL (0.2-1.3); CALCIUM 8.1 mg/dL (8.5-10.1); CARBON DIOXIDE 29.2 mmol/L (21.0-32.0); CHLORIDE - SERUM 98 mmol/L (98-107); CREATININE - SERUM 0.5 mg/dL (0.6-1.3); GLUCOSE 108 mg/dL (74-106); SODIUM 133 mmol/L (136-145); eGFR NON AFRICAN AMERICAN > 90 mL/min (90-120)
[2016-07-14 04:47] LABS: CALC OSMOLALITY 263 mosm/kg (275-300); POTASSIUM - SERUM 3.2 mmol/L (3.5-5.1); UREA NITROGEN 3 mg/dL (7-18)
--- NOTE | 2016-07-14 05:18 | NUR ---
CONFUSED, YELLING OUT, ARGUMENATIVE...TRYING TO USE TELEPHONE TO CALL FAMILY. PLACED CALL TO HAND TRUCKER. SPOKE WITH HANH BECK WHO ATTEMPTED TO REORIENT PT. VSS. RESTRAINTS IN USE. PO FLUIDS IN REACH. HOB UP. C/ONT POC.
[2016-07-14 05:39] LABS: MAGNESIUM - SERUM 1.6 mg/dL (1.8-2.4)
[2016-07-14 05:47] LABS: PHOSPHOROUS 2.3 mg/dL (2.5-4.9)
--- NOTE | 2016-07-14 06:00 | NUR ---
PER ELECTROLYTE PROTOCOL, K+ LEVEL AND MAG LEVEL TREATED. WILL HAVE DAYTIME RN NOTIFY PHARMACY FOR PHOS REPLACEMENT. PT DRINKING PO POTASSIUM IN JUICE. CONT CURRENT POC.
--- NOTE | 2016-07-14 07:13 | NUR ---
SHIFT ASSESSMENT PERFORMED, PT NOTED CONFUSED TO SITUATION. REORIENTATION PROVIDED. NO ACUTE DISTRESS NOTED. WILL CONTINUE PLAN OF CARE.
--- NOTE | 2016-07-14 10:31 | NUR ---
NOTED ALTHOUGH BILATERAL SOFT WRIST RESTRAINTS PRESENT, PT PULLED THE TWO SALINE LOCKS TO LEFT FOOT, CATHETER TIP INTACT TO BOTH. NO BLEEDING NOTED. NO ACUTE DISTRESS NOTED. WILL CONTINUE PLAN FO CARE.
--- NOTE | 2016-07-14 11:05 | NUR ---
NOTED INCREASED CONFUSION AND AGGITATION AT THIS TIME BY PT ALSO NOTED PT STATED SHE WANTED THIS NURSE TO CHECK ON THE KIDS IN THE LIVINGROOM. REORIENTATION PROVIDED FREQUENTLY, UNABLE TO REORIENTATE. PT ALSO NOTED CONTINUING TO ATTEMPT TO PULL AT LINES. NOTED PT FAMILY HAD TOLD STAFF THAT PT IS AN ALCOHOLIC. SPOKE WITH DR STEVENS, PTS ADMITTING PHYSICIAN, NOTED DR PARR IS WAFER FAB TECHNICIAN FOR DR STEVENS. PAGED DR PARR FOR FURTHER ORDERS. WILL CONTINUE PLAN FO CARE.
--- NOTE | 2016-07-14 11:27 | NUR ---
SPOKE WITH DR PARR, RECIEVED ORDERS. WILL PLACE ORDERS AT THIS TIME.
--- NOTE | 2016-07-14 12:31 | NUR ---
PT RESTING AT THIS TIME. NO ACUTE DISTRESS NOTED. VSS. RESPIRATIONS AT STEADY AND UNLABORED RATE. AWAKENS EASILY WHEN STAFF STATES PT NAME. PT IS NOTED LESS AGGITATED AT THIS TIME. WILL CONTINUE TO OBSERVE.
--- NOTE | 2016-07-14 14:16 | NUR ---
NO ACUTE DISTRESS NOTED. PT STILL RESTING. PT DENIES ANY NEEDS. VSS. RESPIRATIONS EVEN AND UNLABORED. AWAKENS WHEN SPOKEN TO. WILL CONTINUE PLAN OF CARE.
--- NOTE | 2016-07-14 14:52 | NUR ---
AWAKE WATCIHNG TV AT THIS TIME. NO ACUTE DISTRESS NOTED. PT STILL NOTED CONFUSED. REORIENTATION PROVIDED, PT NOT ABLE TO BE REORIENTATED. WILL CONTINUE PLAN FO CARE.
--- NOTE | 2016-07-14 16:22 | NUR ---
AWAKE AT THIS TIME. NO ACUTE DISTRESS NOTED. VSS. WILL CONTINUE PLAN OF CARE.
--- NOTE | 2016-07-14 18:10 | NUR ---
NO ACUTE DISTRESS NOTED. VSS. PT STILL CONFUSED. REORIENTATION PROVIDED FREQUENTLY. WILL CONTINUE PLAN OF CARE.
--- NOTE | 2016-07-14 18:51 | NUR ---
TOTAL LINEN CHANGE PROVIDED AT THIS TIME. NOTED OLD LINEN HAD SPILT COFFEE. NEW LINEN PROVIDED. NO ACUTE DISTRESS NOTED AT THIS TIME. WILL CONTINUE PLAN OF CARE.
--- NOTE | 2016-07-14 19:15 | NUR ---
REPORT RECVD. CARE ASSUMED. INITIAL ASSMNT COMPLETED. SEE FLOWSHEET FOR ALL FINDINGS. AWAKE AND ALERT. CONFUDED. DELUSIONAL. SPEECH IS SLURRED. PERRLA NOTED. AGITATED AND RESTLESS. RESP EVEN AND UNLABORED. SCANT EXP WHEEZES AUSC. SPO2 97% ON O2 AT 2 LPM NC. SR ON THE MONITOR. PULSES PALP. SCDS IN USE. F/C PATENT WITH CLR, YELLOW UOP. ABD SOFT, BSA X4. AFEBRILE. HOB UP. C/L IN REACH. BED ALARM ON. ATTEMPTS TO GET OOB. INCREASED OBSERVATION IN PROGRESS. CONT CURRENT POC.
--- NOTE | 2016-07-14 20:30 | NUR ---
PRN ATIVAN AND HALDOL GIVEN IVP ORDERED. PT YELLING OUT. RESTLESS AND AGITATED. VSS. HOB UP. RESTRAINTS PER PROTOCOL. CONT CURRENT POC.
--- NOTE | 2016-07-14 21:40 | NUR ---
RESPONDING TO BED ALARM, PT IS ALMOST OUT OF BED. SHE HAS REMOVED HER BILATERAL WRIAST RESTRAINTS AND PULLED OUT CVL. TIP IS INTACT AND MINIMAL BLEEDING IS SEEN. SUTURES REMOVED. DRESSING APPLIED TO SUBCLAVIAN. BATH GIVEN. LINENS CHANGED. F/C REMAINS INTACT. RESTRAINTS REPLACED FOR SAFETY. VSS. SPOKE WITH DR PARR. ORDERED NOT TO REPLACE CVL WITH PIV AT THIS TIME. STOP IVF AND MONITOR. WILL RE EVAL PT STATUS IN AM. CONT CURRENT POC.
--- NOTE | 2016-07-14 23:15 | NUR ---
REASSESSMENT COMPLETED. SEE FLOWSHEET FOR ALL FINDINGS. SOMNOLENT. CONFUSED. RESTING NO DISTRESS. SPEECH IS SLURRED. PERRLA NOTED. NO BEHAVIORS AT THIS TIME. RESP EVEN AND UNLABORED. SCANT EXP WHEEZES AUSC. SPO2 97% ON O2 AT 2 LPM NC. SR ON THE MONITOR. PULSES PALP. SCDS IN USE. F/C PATENT WITH CONCENTRATED UOP. ABD SOFT, BSA X4. AFEBRILE. HOB UP. C/L IN REACH. BED ALARM ON. RESTRAINTS IN PLACE. CONT CURRENT POC.
[2016-07-15] VITALS (24 sets, daily range): BP systolic 113–153; BP diastolic 59–105
--- NOTE | 2016-07-15 01:20 | NUR ---
RESTING IN BED WITH EYES CLOSED. NO DISTRESS. NO BEHAVIORS. VSS. HOB UP. RESTRAINTS FOR SAFETY. CONT CURRENT POC.
--- NOTE | 2016-07-15 05:20 | NUR ---
AWAKE AND ALERT. CONFUSED. CALLING OUT FOR NURSE AT TIMES. ATTEMPTS TO REMOVE RESTRAINTS. VSS. SPO2 985 ON O2 AT 2 LPM NC. BED ALARM ON. HOB UP. C/L IN REACH. CONT CURRENT POC.
[2016-07-15 06:03] LABS: BASOPHILS 0.5 % (0.0-2.0); EOSINOPHILS 2.8 % (0-7); HEMATOCRIT 28.7 % (36.0-48.0); HEMOGLOBIN 9.6 g/dL (12-16); LYMPHOCYTES 24.9 % (15-50); MCH 31.4 pg (26.0-34.0); MCHC 33.4 g/dL (31.0-37.0); MCV 93.8 fL (80.0-100.0); MONOCYTES 12.6 % (2-11); NEUTROPHILS 59.2 % (40-80); PLATELET COUNT 247 10x3/uL (130-400); RBC 3.06 10x6/uL (4.00-5.40); RDW 16.7 % (11.5-14.5)
[2016-07-15 06:04] LABS: WBC 4.3 10x3/uL (4.8-10.8)
[2016-07-15 06:17] LABS: ALBUMIN 2.9 g/dL (3.4-5.0); ALKALINE PHOSPHATASE 106 U/L (46-116); ALT (SGPT) 18 U/L (10-68); BILIRUBIN - TOTAL 0.28 mg/dL (0.2-1.3); CALC OSMOLALITY 272 mosm/kg (275-300); CALCIUM 8.4 mg/dL (8.5-10.1); CARBON DIOXIDE 27.6 mmol/L (21.0-32.0); CHLORIDE - SERUM 103 mmol/L (98-107); CREATININE - SERUM 0.6 mg/dL (0.6-1.3); GLUCOSE 95 mg/dL (74-106); MAGNESIUM - SERUM 1.9 mg/dL (1.8-2.4); PROTEIN - SERUM 5.7 g/dL (6.4-8.2); SODIUM 138 mmol/L (136-145); UREA NITROGEN 3 mg/dL (7-18); eGFR NON AFRICAN AMERICAN > 90 mL/min (90-120)
[2016-07-15 06:18] LABS: PHOSPHOROUS 3.8 mg/dL (2.5-4.9)
--- NOTE | 2016-07-15 06:30 | NUR ---
NO ELELCTROLYTE REPLACEMENT REQUIRED THIS AM PER PROTOCOL.
--- NOTE | 2016-07-15 07:38 | NUR ---
NO ACUTE DISTRESS NOTED. VSS. PT CONFUSED. REORIENTATION FREQUENTLY PROVIDED. WILL CONTINUE PLAN OF CARE.
--- NOTE | 2016-07-15 09:40 | NUR ---
PT NOTED NO LONGER PULLING AT LINES AND TUBING. RESTRAINTS DC AT THIS TIME.
--- NOTE | 2016-07-15 11:33 | NUR ---
NO ACUTE DISTRESS NOTED. PT CONFUSED HOWEVER COOPERATIVE AT THIS TIME. VSS. WILL CONTINUE PLAN OF CARE.
--- NOTE | 2016-07-15 13:10 | NUR ---
PT RESTING AT THIS TIME. NO ACUTE DISTRESS NOTED. RESPIRATIONS AT STEADY AND UNLABORED RATE. WILL CONTINUE PLAN OF CARE.
--- NOTE | 2016-07-15 15:58 | NUR ---
NO ACUTE DISTRESS NOTED. PT CALM. NO ANXIETY OR AGRESSION NOTED. USES CALL LIGHT FOR REQUESTS. NOT PULLING AT LINES. WILL CONTINUE PLAN OF CARE.
--- NOTE | 2016-07-15 18:05 | NUR ---
UP IN BED AT THIS TIME TALKING ON PHONE TO FAMILY. NO ACUTE DISTRESS NOTED AT THIS TIME. NO AGGRESSION OR IRRITATION NOTED. PT COMPLIANT. VSS. WILL CONTINUE PLAN OF CARE.
--- NOTE | 2016-07-15 19:00 | NUR ---
REPORT RECEIVED AND ASSESSMENT COMPLETED. SEE FLOWSHEET FOR FULL DETAILS.
--- NOTE | 2016-07-15 21:00 | NUR ---
2100 MEDS GIVEN. FAMILY AT BEDSIDE. GAVE FAMILY PT JEWELRY TO TAKE HOME WITH HER PERMISSION. ITEMS INCLUDED WERE 3 GOLD COLORED EARRINGS AND ONE GOLD COLORED NECKLACE WITH A CROSS PENDANT. NO OTHER CHANGES AT THIS TIME. VSS. WILL MONITOR
--- NOTE | 2016-07-15 23:00 | NUR ---
REASSESSMENT COMPLETED. SEE FLOWSHEET. VSS. WILL MONITOR
[2016-07-16] VITALS (14 sets, daily range): BP systolic 120–154; BP diastolic 58–94
--- NOTE | 2016-07-16 01:00 | NUR ---
NO CHANGES IN STATUS AT THIS TIME. VSS. WILL CONTINUE TO MONITOR
--- NOTE | 2016-07-16 03:51 | NUR ---
REASSESSMENT COMPLETED SEE FLOWSHEET FOR FULL DETAILS.
[2016-07-16 04:50] LABS: EOSINOPHILS 11.3 % (0-7); HEMATOCRIT 27.4 % (36.0-48.0); HEMOGLOBIN 9.1 g/dL (12-16); LYMPHOCYTES 27.8 % (15-50); MCH 31.7 pg (26.0-34.0); MCHC 33.2 g/dL (31.0-37.0); MCV 95.5 fL (80.0-100.0); MEAN PLATELET VOLUME 9.4 fL (7.4-10.4); MONOCYTES 14.4 % (2-11); NEUTROPHILS 45.5 % (40-80); PLATELET COUNT 269 10x3/uL (130-400); RBC 2.87 10x6/uL (4.00-5.40); WBC 3.9 10x3/uL (4.8-10.8)
[2016-07-16 05:18] LABS: ALBUMIN 2.8 g/dL (3.4-5.0); ALKALINE PHOSPHATASE 100 U/L (46-116); ALT (SGPT) 17 U/L (10-68); CALC OSMOLALITY 270 mosm/kg (275-300); CALCIUM 8.6 mg/dL (8.5-10.1); CARBON DIOXIDE 27.4 mmol/L (21.0-32.0); CHLORIDE - SERUM 102 mmol/L (98-107); CREATININE - SERUM 0.5 mg/dL (0.6-1.3); GLUCOSE 91 mg/dL (74-106); POTASSIUM - SERUM 3.6 mmol/L (3.5-5.1); PROTEIN - SERUM 5.3 g/dL (6.4-8.2); SODIUM 137 mmol/L (136-145); eGFR NON AFRICAN AMERICAN > 90 mL/min (90-120)
[2016-07-16 05:26] LABS: UREA NITROGEN 5 mg/dL (7-18)
--- NOTE | 2016-07-16 05:39 | NUR ---
PT STATED HER BACK WAS HURTING. REPOSITIONED FOR COMFORT. WILL CONTINUE TO MONITOR.
--- NOTE | 2016-07-16 08:43 | NUR ---
DR RODNEY RUCKER, PT C/O L EAR HURTING, OTOSCOPE PROVIDED FOR PHYSICIAN. MEAL TRAY PROVIDED FOR PT AND PT FEEDS SELF W/O PROBLEMS.
--- NOTE | 2016-07-16 10:13 | NUR ---
ASSISTED PT WITH BED BONILLA AND BM. PT DID HAVE FORMED SOFT BROWN STOOL.
--- NOTE | 2016-07-16 10:41 | NUR ---
NUTRITION MONITORING & EVAL NURSING REPORTS PT WITH CONTINUED POOR PO INTAKE AHA DIET. PT REPORTS EATING SMALL AMT OATMEAL AT BREAKFAST. COFFEE X2 THIS AM. RD FOLLOWING
--- NOTE | 2016-07-16 11:51 | NUR ---
ECHO COMPLETE AND DC INSTRUCTIONS GIVEN TO PT AND . PT AND VERB UNDERSTANDING OF DC INSTRUCTIONS.
[2016-07-17] VITALS: BP 112/67
[2016-07-17 04:00] VITALS: BP 121/66
--- NOTE | 2016-07-17 07:24 | NUR ---
PATIENT'S BED IN LOWEST POSITION, CALL LIGHT WITHIN REACH, AND BED ALARM ON.
[2016-07-17 07:41] LABS: ALBUMIN 2.7 g/dL (3.4-5.0); ALKALINE PHOSPHATASE 103 U/L (46-116); ALT (SGPT) 15 U/L (10-68); BILIRUBIN - TOTAL 0.31 mg/dL (0.2-1.3); CALC OSMOLALITY 271 mosm/kg (275-300); CALCIUM 8.5 mg/dL (8.5-10.1); CARBON DIOXIDE 29.5 mmol/L (21.0-32.0); CHLORIDE - SERUM 101 mmol/L (98-107); GLUCOSE 91 mg/dL (74-106); POTASSIUM - SERUM 3.8 mmol/L (3.5-5.1); PROTEIN - SERUM 5.9 g/dL (6.4-8.2); SODIUM 137 mmol/L (136-145); UREA NITROGEN 6 mg/dL (7-18)
[2016-07-17 07:42] LABS: CREATININE - SERUM 0.7 mg/dL (0.6-1.3); eGFR NON AFRICAN AMERICAN 89 mL/min (90-120)
[2016-07-17 08:10] LABS: EOSINOPHILS 10.9 % (0-7); HEMATOCRIT 29.2 % (36.0-48.0); HEMOGLOBIN 9.5 g/dL (12-16); LYMPHOCYTES 30.7 % (15-50); MCHC 32.5 g/dL (31.0-37.0); MEAN PLATELET VOLUME 10.5 fL (7.4-10.4); MONOCYTES 15.2 % (2-11); NEUTROPHILS 42.2 % (40-80); RBC 2.97 10x6/uL (4.00-5.40); RDW 15.9 % (11.5-14.5)
[2016-07-17 08:11] LABS: MCV 98.3 fL (80.0-100.0); PLATELET COUNT 120 10x3/uL (130-400)
[2016-07-17 09:09] VITALS: BP 120/74
[2016-07-17] MEDS ORDERED: ATIVAN0.5 MG PO (10:09)
--- NOTE | 2016-07-17 11:26 | NUR ---
PT SEEN FOR TOWEL HEMMER NOTE. C/O PAIN TO RIGHT SIDE OF BODY FROM FALL. HAD TYLENOL AT 0650 AND NOT DUE YET. MARKET RESEARCH SPECIALIST EQUAL AND STRONG. SPEECH CLEAN AND ALERT/ORIENTED. FOR POSSIBLE DISCHARGE TODAY. CALL LIGHT IN REACH. BED ALARM ON FOR SAFETY
[2016-07-17 14:04] VITALS: BP 143/86
--- NOTE | 2016-07-17 14:16 | CN ---
PATIENT NAME:ABIODUN VOSS MEDICAL RECORD: [id number] : 52 LOCATION:[id number] ADMIT DATE: 07/12/16 ACCOUNT: [id number] CONSULTING PHYSICIAN: AIDEN ALLEN MD REFERRING PHYSICIAN: TIM STEVENS DO DATE OF CONSULTATION: 07/16/2016 Psychiatric Consultation IDENTIFYING DATA: The patient is 66 years old and she is admitted to the hospital on a voluntary basis. CHIEF COMPLAINT: None. HISTORY OF PRESENT ILLNESS: Apparently, the patient fell down and injured herself and her head a couple of days ago. She had a small nonsurgical bleed as well as some contusions and abrasions. There was some question about her drinking. She says that she was not drinking and then she tells me that she only drinks once in a while and even then it is just a beer or 2 at a time and that she was not drinking the day she fell. She denies depressive symptoms, denies wanting to hurt herself or others and denies substance abuse. She ____ very nice about it, but she says her arm is bothering her and she wants something done about that and she does not think she needs to see a psychiatrist. MENTAL STATUS EXAMINATION: The patient is awake, alert and oriented to person, place, time and situation. Her mood is flat. Her affect is appropriate. Thought processes are circumstantial. Memory, concentration and abstraction abilities are mildly impaired and she denies any intent to harm herself or others as well as psychotic symptoms. ASSESSMENT: Adjustment disorder with mixed emotional features. PLAN: At this time, I see no evidence of acute or direct dangerousness. The patient is adamant that she does not drink excessively or have problems with a mood or thinking disorder. She does not think she needs to see a psychiatrist. Again, I see no evidence of acute dangerousness and I think there is little that can be done to help her if she does not think she has a problem. My recommendations would be to follow up with Mental Health on an as needed basis. TRANSINT:[id number] Voice Confirmation ID: [id number] DOCUMENT ID: [id number] AIDEN ALLEN MD at 1416 CC: [id number] DICTATION DATE: 07/16/16 1450 ORGANIZATION DEVELOPMENT CONSULTANT: 07/17/16 0001 ADM IN [facility] [address] [id number]
--- NOTE | 2016-07-17 14:47 | NUR ---
CM REASSESSMENT NOTE: PATIENT IS BEING DISCHARGED TO IP REHAB TODAY. IMM SERVED
[2016-07-17 19:51] VITALS: BP 142/83
== END 2016-07-17 21:29 | DRG 86 ==
LOC: D.ER 18:13 → D.CVICU 19:35 → D.MS 07-16 20:17
PROVIDERS: Emergency Medicine; Internal Medicine Gastroenterology; ADMIT Family Medicine
PROC: 0T9B70Z Drainage of Bladder with Drainage Device, Via Natural or Artificial Opening (ICD-10-PCS; principal; 2016-07-12)
PROC: 02HV33Z Insertion of Infusion Device into Superior Vena Cava, Percutaneous Approach (ICD-10-PCS; 2016-07-12)
PROC: 0HQ1XZZ Repair Face Skin, External Approach (ICD-10-PCS; 2016-07-12)
DX: S06.300A Unspecified focal traumatic brain injury without loss of consciousness, initial encounter (principal); D62 Acute posthemorrhagic anemia; W19.XXXA Unspecified fall, initial encounter; G40.909 Epilepsy, unspecified, not intractable, without status epilepticus; Z86.73 Personal history of transient ischemic attack (TIA), and cerebral infarction without residual deficits; F10.20 Alcohol dependence, uncomplicated; Y90.0 Blood alcohol level of less than 20 mg/100 ml; R45.1 Restlessness and agitation; J44.9 Chronic obstructive pulmonary disease, unspecified; I10 Essential (primary) hypertension; I25.2 Old myocardial infarction; R40.2422 Glasgow coma scale score 9-12, at arrival to emergency department; S01.81XA Laceration without foreign body of other part of head, initial encounter

== ENCOUNTER 2016-07-17 21:35 | Inpatient (IN) | payer MEDICARE ==
[~2016-07-17 21:35] MED LIST changes: +ATIVAN0.5 MG PO
[2016-07-18 06:15] LABS: HEMOGLOBIN 9.6 g/dL (12-16); MCH 32.1 pg (26.0-34.0); MCHC 33.1 g/dL (31.0-37.0); MEAN PLATELET VOLUME 9.3 fL (7.4-10.4); MONOCYTES 18.3 % (2-11); NEUTROPHILS 39.7 % (40-80); RBC 2.99 10x6/uL (4.00-5.40); RDW 15.5 % (11.5-14.5)
[2016-07-18 06:28] LABS: PLATELET COUNT 314 10x3/uL (130-400)
[2016-07-18 07:01] LABS: CALC OSMOLALITY 274 mosm/kg (275-300); CALCIUM 8.5 mg/dL (8.5-10.1); CHLORIDE - SERUM 104 mmol/L (98-107); CREATININE - SERUM 0.6 mg/dL (0.6-1.3); GLUCOSE 89 mg/dL (74-106); POTASSIUM - SERUM 3.4 mmol/L (3.5-5.1); SODIUM 139 mmol/L (136-145); UREA NITROGEN 7 mg/dL (7-18); eGFR NON AFRICAN AMERICAN > 90 mL/min (90-120)
[2016-07-20 07:00] LABS: BASOPHILS 0.3 % (0.0-2.0); EOSINOPHILS 8.1 % (0-7); HEMATOCRIT 29.5 % (36.0-48.0); HEMOGLOBIN 9.7 g/dL (12-16); LYMPHOCYTES 31.3 % (15-50); MCH 32.2 pg (26.0-34.0); MCHC 32.9 g/dL (31.0-37.0); NEUTROPHILS 44.3 % (40-80); PLATELET COUNT 340 10x3/uL (130-400); RBC 3.01 10x6/uL (4.00-5.40); RDW 15.2 % (11.5-14.5)
[2016-07-20 07:04] LABS: WBC 3.9 10x3/uL (4.8-10.8)
[2016-07-20 07:27] LABS: CALC OSMOLALITY 274 mosm/kg (275-300); CALCIUM 8.6 mg/dL (8.5-10.1); CARBON DIOXIDE 25.6 mmol/L (21.0-32.0); CHLORIDE - SERUM 103 mmol/L (98-107); CREATININE - SERUM 0.7 mg/dL (0.6-1.3); GLUCOSE 104 mg/dL (74-106); SODIUM 138 mmol/L (136-145); UREA NITROGEN 9 mg/dL (7-18); eGFR NON AFRICAN AMERICAN 89 mL/min (90-120)
[2016-07-23 06:16] LABS: BASOPHILS 1.6 % (0-2); EOSINOPHILS 5.6 % (0-7); HEMATOCRIT 30.8 % (36.0-48.0); LYMPHOCYTES 32.2 % (15-50); MCH 31.7 pg (26.0-34.0); MCHC 32.5 g/dL (31.0-37.0); MCV 97.8 fL (80.0-100.0); MONOCYTES 18.4 % (2-11); NEUTROPHILS 42.2 % (40-80); RBC 3.15 10x6/uL (4.00-5.40); WBC 3.8 10x3/uL (4.8-10.8)
[2016-07-23 06:23] LABS: PLATELET COUNT 436 10x3/uL (130-400)
[2016-07-23 06:57] LABS: CALC OSMOLALITY 269 mosm/kg (275-300); CALCIUM 8.9 mg/dL (8.5-10.1); CARBON DIOXIDE 26.6 mmol/L (21.0-32.0); CHLORIDE - SERUM 101 mmol/L (98-107); CREATININE - SERUM 0.7 mg/dL (0.6-1.3); GLUCOSE 86 mg/dL (74-106); POTASSIUM - SERUM 4.1 mmol/L (3.5-5.1); SODIUM 136 mmol/L (136-145); UREA NITROGEN 9 mg/dL (7-18); eGFR NON AFRICAN AMERICAN 89 mL/min (90-120)
[2016-07-24 06:57] LABS: BASOPHILS 1.3 % (0-2); EOSINOPHILS 6.7 % (0-7); HEMATOCRIT 30.3 % (36.0-48.0); HEMOGLOBIN 9.8 g/dL (12-16); LYMPHOCYTES 36.2 % (15-50); MCH 31.3 pg (26.0-34.0); MCHC 32.3 g/dL (31.0-37.0); MCV 96.8 fL (80.0-100.0); MEAN PLATELET VOLUME 8.8 fL (7.4-10.4); MONOCYTES 15.5 % (2-11); NEUTROPHILS 40.3 % (40-80); PLATELET COUNT 416 10x3/uL (130-400); RBC 3.13 10x6/uL (4.00-5.40); RDW 14.7 % (11.5-14.5); WBC 3.7 10x3/uL (4.8-10.8)
[2016-07-24 07:07] LABS: CALC OSMOLALITY 264 mosm/kg (275-300); CALCIUM 9.1 mg/dL (8.5-10.1); CARBON DIOXIDE 25.9 mmol/L (21.0-32.0); CHLORIDE - SERUM 100 mmol/L (98-107); CREATININE - SERUM 0.6 mg/dL (0.6-1.3); GLUCOSE 88 mg/dL (74-106); POTASSIUM - SERUM 4.4 mmol/L (3.5-5.1); SODIUM 134 mmol/L (136-145); UREA NITROGEN 7 mg/dL (7-18); eGFR NON AFRICAN AMERICAN > 90 mL/min (90-120)
[2016-07-25 08:50] LABS: BASOPHILS 1.4 % (0-2); EOSINOPHILS 5.1 % (0-7); HEMATOCRIT 31.6 % (36.0-48.0); HEMOGLOBIN 10.1 g/dL (12-16); LYMPHOCYTES 33.2 % (15-50); MCH 30.9 pg (26.0-34.0); MCV 96.6 fL (80.0-100.0); MEAN PLATELET VOLUME 8.6 fL (7.4-10.4); NEUTROPHILS 42.3 % (40-80); PLATELET COUNT 441 10x3/uL (130-400); RBC 3.27 10x6/uL (4.00-5.40); RDW 14.7 % (11.5-14.5)
[2016-07-25 08:51] LABS: CALC OSMOLALITY 270 mosm/kg (275-300); CALCIUM 8.9 mg/dL (8.5-10.1); CHLORIDE - SERUM 101 mmol/L (98-107); CREATININE - SERUM 0.7 mg/dL (0.6-1.3); GLUCOSE 92 mg/dL (74-106); POTASSIUM - SERUM 4.2 mmol/L (3.5-5.1); SODIUM 137 mmol/L (136-145); eGFR NON AFRICAN AMERICAN 89 mL/min (90-120)
[2016-07-25 08:52] LABS: UREA NITROGEN 5 mg/dL (7-18)
[2016-07-27] MEDS ORDERED: HYDROCODON-ACE1 EAC7 PO (07:55)
== END 2016-07-27 15:51 | disposition home health service (06) | DRG 65 ==
LOC: D.REHAB 21:35
PROVIDERS: ADMIT Emergency Medicine
DX: I61.1 Nontraumatic intracerebral hemorrhage in hemisphere, cortical (principal); D62 Acute posthemorrhagic anemia; G40.909 Epilepsy, unspecified, not intractable, without status epilepticus; Z91.81 History of falling

== ENCOUNTER 2016-09-23 02:42 | Inpatient (IN) | payer MEDICARE ==
[~2016-09-23] VITALS: Ht 152.4 cm; Wt 56.8 kg
[2016-09-23] VITALS (19 sets, daily range): BP systolic 76–152; BP diastolic 48–107
[~2016-09-23 02:42] MED LIST changes: +HYDROCODON-ACE1 EAC7 PO
[2016-09-23 03:16] LABS: APPEARANCE CLEAR (CLEAR); BILIRUBIN NEGATIVE (NEGATIVE); COLOR YELLOW (YELLOW); GLUCOSE NEGATIVE (NEGATIVE); KETONE NEGATIVE (NEGATIVE); LEUKOCYTE ESTERASE NEGATIVE (NEGATIVE); NITRITE NEGATIVE (NEGATIVE); PROTEIN NEGATIVE (NEGATIVE); UROBILINOGEN NORMAL (NORMAL)
[2016-09-23 03:46] LABS: BASOPHILS 0.8 % (0-2); EOSINOPHILS 1.7 % (0-7); HEMATOCRIT 33.9 % (36.0-48.0); IMMATURE GRANULOCYTES 1.3 % (0-5); MCH 31.6 pg (26.0-34.0); MCHC 35.4 g/dL (31.0-37.0); MCV 89.2 fL (80.0-100.0); MEAN PLATELET VOLUME 9.2 fL (7.4-10.4); MONOCYTES 12.9 % (2-11); NEUTROPHILS 63.3 % (40-80); WBC 2.4 10x3/uL (4.8-10.8)
[2016-09-23 03:47] LABS: PLATELET COUNT 241 10x3/uL (130-400)
[2016-09-23 04:09] LABS: ALKALINE PHOSPHATASE 221 U/L (46-116); ALT (SGPT) 41 U/L (10-68); BILIRUBIN - TOTAL 0.23 mg/dL (0.2-1.3); CALCIUM 8.9 mg/dL (8.5-10.1); CREATININE - SERUM 0.6 mg/dL (0.6-1.3); GLUCOSE 78 mg/dL (74-106); PHENYTOIN (DILANTIN) 12.2 ug/mL (10.0-20.0); POTASSIUM - SERUM 3.4 mmol/L (3.5-5.1); PROTEIN - SERUM 7.4 g/dL (6.4-8.2); UREA NITROGEN 5 mg/dL (7-18); eGFR NON AFRICAN AMERICAN > 90 mL/min (90-120)
[2016-09-23 04:11] LABS: CALC OSMOLALITY 235 mosm/kg (275-300); CHLORIDE - SERUM 82 mmol/L (98-107); SODIUM 119 mmol/L (136-145)
--- NOTE | 2016-09-23 05:57 | NUR ---
PT ARRIVED VIA BED WITH ER STAFF. AOX4. RESPIRATIONS UNLABORED, SPO2 96 ON ROOM AIR. LUNG SOUNDS CLEAR IN UPPER LOBES, DIMINISHED IN LOWER LOBES. S1S2 HEARD, PERIPHERAL PULSES PRESENT. BOWEL SOUNDS ACTIVE IN ALL QUADS. SOUSA CATH INTACT WITH CLEAR YELLOW URINE TO BEDSIDE DRAINAGE. MIDLINE SCAR TO ABD. BRUISING TO LT THIGH AND BILATERAL ARMS. EULALIA BANDAGE PRESENT ON RT HAND FROM IV ATTEMPTS IN ER. RIGHT SUBCLAVIAN CVL WITH DSG CDI. VSS ON MONITOR, TEMP 97.7. ICE CHIPS AT BEDSIDE. CALL LIGHT WITHIN PT REACH. ROOM VISIBLE FROM NURSES STATION. CPOC.
[2016-09-23] MEDS ORDERED: BUSPAR10 MG (06:05)
[2016-09-23] MEDS ORDERED: TENORMIN50 MG (06:05)
[2016-09-23] MEDS ORDERED: LISINOPRIL10 MG (06:07)
[2016-09-23] MEDS ORDERED: PLAVIX75 MG (06:07)
[2016-09-23 08:38] LABS: UDS - AMPHET NEGATIVE QUAL (NEGATIVE); UDS - BARB NEGATIVE QUAL (NEGATIVE); UDS - BENZO NEGATIVE QUAL (NEGATIVE); UDS - COCAINE NEGATIVE QUAL (NEGATIVE); UDS - METH NEGATIVE QUAL (NEGATIVE); UDS - OPIATE NEGATIVE QUAL (NEGATIVE); UDS - PCP NEGATIVE QUAL (NEGATIVE); UDS - THC NEGATIVE QUAL (NEGATIVE)
--- NOTE | 2016-09-23 12:42 | NUR ---
1200 FSBS 33, GAVE 1/2 AMP D50, FED LUNCH TO PT CONSUMED ABOUT 80%, RECHECKED FSBS AT 1230 131
[2016-09-23 14:02] LABS: CALCIUM 7.9 mg/dL (8.5-10.1); CARBON DIOXIDE 23.9 mmol/L (21.0-32.0); CHLORIDE - SERUM 91 mmol/L (98-107); SODIUM 124 mmol/L (136-145); eGFR NON AFRICAN AMERICAN 76 mL/min (90-120)
[2016-09-23 14:04] LABS: CALC OSMOLALITY 244 mosm/kg (275-300); CREATININE - SERUM 0.8 mg/dL (0.6-1.3); GLUCOSE 64 mg/dL (74-106); UREA NITROGEN 3 mg/dL (7-18)
--- NOTE | 2016-09-23 17:07 | HP ---
PATIENT: ABIODUN VOSS MEDICAL RECORD: [id number] ACCOUNT: [id number] LOCATION:[facility] [id number] : 51 ADMISSION DATE: 09/23/16 HISTORY AND PHYSICAL EXAMINATION HISTORY OF PRESENT ILLNESS: The patient is unable to give much of a history other than she has hot and confused. The patient evidently was brought in by a private car for evaluation of been out of her head for the last 24 hours. The patient has a history of being confused at times and had a history of seizure disorder and intracranial bleed that has been sustained on intracranial bleed approximately a year ago. She was last hospitalized 2 months ago with another primary care group for hypoglycemia and seizure. The patient was evaluated in the Emergency Room and was found to have evidence of hypoglycemia and hyponatremia. She was stabilized and admitted to the ICU for further evaluation. PAST MEDICAL HISTORY: Significant for hypoglycemia, hyponatremia, COPD, hypertension, intracranial bleed from a fall, old CVA, seizure disorder, coronary artery disease, ME in the past. PAST SURGICAL HISTORY: Unobtainable at the present time. Her medication list on MAR sheet, which includes BuSpar, gabapentin, Plavix, atenolol, lisinopril, Zantac, Dilantin, Flagyl. ALLERGIES: THE PATIENT IS ALLERGIC TO ASPIRIN. SOCIAL HISTORY: No history of smoking or recent alcohol use. REVIEW OF SYSTEMS: Indicates the patient complains of being hot and thrashing about. PHYSICAL EXAMINATION: VITAL SIGNS: As noted. GENERAL: She is a thin, frail, 66-year-old white female that is in the ICU, in no acute distress. HEENT: Her pupils do react to light. Extraocular movements are intact. Moist mucous membranes noted. NECK: No cervical or pharyngeal adenopathy. No nuchal rigidity. LUNGS: Have coarse breath sounds, but are clear throughout. HEART: Regular rate and rhythm, tachycardia, I/ murmur is noted. ABDOMEN: Soft, nontender, positive bowel sounds. No hepatosplenomegaly, no masses. EXTREMITIES: She has arthritic changes, but no edema. NEUROLOGIC: She is able to move all 4 extremities. Sensation is intact. The patient's CT of her head showed an old infarct. LABORATORY DATA: Shows a white count of 2000, H&H 12 and 39, and platelets of 241. She had evidence of sodium of 119, potassium of 3.4, chloride 82, BUN of 5 and creatinine 0.6. Glucose initially was 34, it is now 78. Lactic acid is 7.4. She has a metabolic acidosis. ____ negative. Tox screen showed her Dilantin present, but no other narcotics or other medications. ASSESSMENT: 1. Mental status changes secondary to metabolic acidosis. 2. Metabolic acidosis. HISTORY AND PHYSICAL [id number] ABIODUN VOSS 3. History of seizure disorder. 4. Hyponatremia. 5. Hypokalemia. 6. Hypoglycemia. 7. Atypical fever. 8. Seizure disorder. PLAN: The patient will be admitted to the ICU. Nephrology consultation will be obtained. We will do workup for sepsis as well. Check laboratory appropriately. TRANSINT:[id number] Voice Confirmation ID: [id number] DOCUMENT ID: [id number] JOAO VIDAL MD at 1707 CC: [id number] DICTATION DATE: 09/23/16 1035 ACCOUNTING LECTURER: 09/23/[address] [facility] [address] [place] [address]
--- NOTE | 2016-09-23 19:15 | NUR ---
SHIFT ASSESSMENT COMPLETE. ORIENTED X3, BUT WHEN I INFORM HER OF WHERE HER FAMILY IS SHE SEEMS FORGETFUL. PUPILS 3 MM, BRISK REACTION TO LIGHT. ROOM AIR, O2 SAT 97%. MUCOUS MEMBRANES MOIST, NO TEETH, SINGLE FURROW ON TONGUE. PULSES PALP. S1S2 AUDIBLE. HR 96, NORMAL SINUS VIA TELEMETRY. BILAT CRACKLES IN ALL LOBES. BOWEL SOUNDS ACTIVE X4. PT COMPLAINS THAT HER STOMACH IS HURTING. PUT HER ON BED BONILLA. NO BM NOTED. BLACK TARRY STOOL WHEN WIPED. SCDS REMOVED AND SKIN ASSESSED, WNL. CAP REFILL <3 SEC. BLOOD SUGAR 20. ADMINISTERED D50 [address] WOO'S ORDERS VIA TELEPHONE. WILL RECHECK BLOOD SUGAR IN 30 MINUTES. BED IN LOWEST POSITION. WILL CONTINUE TO MONITOR.
--- NOTE | 2016-09-23 21:25 | NUR ---
BLOOD SUGAR 62. ADMINISTERED D5 PER PROTOCOL. WILL REASSESS IN 30 MINUTES. CHANGED CVL DRESSING. IT WAS VERY MESSY AND EVERY CORNER WAS UP. CVL PATENT, NO S/S OF INFECTION. BACK ON BED BONILLA. NO BM NOTED. PRODUCTIVE COUGH WITH THICK WHITE SECRETIONS. PT STATES THAT HER PAIN IS STILL CONSTANT. ADMIN TYLENOL. BED IN LOWEST POSITION. TURNED TV ON FOR HER. WILL CONTINUE TO MONITOR.
--- NOTE | 2016-09-23 23:00 | NUR ---
PT COMPLAINING THAT HER ABDOMEN IS STILL HURTING HER VERY BADLY. PUT HER ON BED BONLILA. LOOSE, BLACK, TARRY STOOLS. REASSESSMENT COMPLETE. VSS. CALL LIGHT IN REACH. WILL CONTINUE TO MONITOR.
--- NOTE | 2016-09-23 23:00 | NUR ---
BLOOD SUGAR 66. WILL RECHECK AT 0000. NO FURTHER NEEDS AT THIS TIME.
[2016-09-24] VITALS (25 sets, daily range): BP systolic 126–157; BP diastolic 71–108; Ht 152.4 cm; Wt 56.8 kg
--- NOTE | 2016-09-24 | NUR ---
BLOOD SUGAR 63. WILL CONTINUE TO MONITOR. PT SHOWS NO S/S OF HYPOGLYCEMIA. PT ON BED BONILLA. NO BM AT THIS TIME. CALL LIGHT IN REACH.
--- NOTE | 2016-09-24 01:00 | NUR ---
PT RESTING IN BED. REQUESTING MORE TEA. REFILLED IT FOR HER. SHOWED HER HOW TO USE THE REMOTE. PT ON BED BONILLA. NO BM AT THIS TIME. WILL CONTINUE TO MONITOR.
--- NOTE | 2016-09-24 03:00 | NUR ---
REASSESSMENT COMPLETE. VSS. ADMIN PRN PAIN MEDS PER PT REQUEST. WILL REASSESS PAIN IN 30 MINUTES. REPOSITONED FOR COMFORT. FRESH TEA BROUGHT TO HER. TURNED TV ON PER REQUEST. BED IN LOWEST POSITON. WILL CONTINUE TO MONITOR.
[2016-09-24 04:50] LABS: BASOPHILS 0.3 % (0-2); EOSINOPHILS 0.8 % (0-7); HEMATOCRIT 29.1 % (36.0-48.0); HEMOGLOBIN 10.5 g/dL (12-16); LYMPHOCYTES 25.2 % (15-50); MCH 32.5 pg (26.0-34.0); MCHC 36.1 g/dL (31.0-37.0); MCV 90.1 fL (80.0-100.0); MEAN PLATELET VOLUME 9.2 fL (7.4-10.4); MONOCYTES 18.5 % (2-11); NEUTROPHILS 55.2 % (40-80); PLATELET COUNT 264 10x3/uL (130-400); RBC 3.23 10x6/uL (4.00-5.40); RDW 15.9 % (11.5-14.5)
[2016-09-24 04:53] LABS: WBC 3.7 10x3/uL (4.8-10.8)
--- NOTE | 2016-09-24 05:00 | NUR ---
CLEANED PT UP. BLACK TARRY STOOLS IN BED. PT STATES THAT THIS IS NORMAL FOR HER. BED IN LOWEST POSITION. WILL CONTINUE TO MONITOR.
[2016-09-24 05:27] LABS: ALBUMIN 3.1 g/dL (3.4-5.0); ALKALINE PHOSPHATASE 164 U/L (46-116); ALT (SGPT) 38 U/L (10-68); CALCIUM 7.9 mg/dL (8.5-10.1); CARBON DIOXIDE 24.5 mmol/L (21.0-32.0); CHLORIDE - SERUM 87 mmol/L (98-107); CREATINE KINASE 500 UL (21-215); CREATININE - SERUM 0.6 mg/dL (0.6-1.3); PROTEIN - SERUM 6.1 g/dL (6.4-8.2); SODIUM 121 mmol/L (136-145); eGFR NON AFRICAN AMERICAN > 90 mL/min (90-120)
[2016-09-24 05:29] LABS: CALC OSMOLALITY 237 mosm/kg (275-300); GLUCOSE 57 mg/dL (74-106); UREA NITROGEN 0 mg/dL (7-18)
[2016-09-24 05:30] LABS: CKMB 3.5 U/L (0.0-3.6)
--- NOTE | 2016-09-24 05:38 | NUR ---
LAB CALLED. BLOOD SUGAR IS 52. GAVE 1/2 AMP OF D50 PER ORDERS
--- NOTE | 2016-09-24 07:00 | NUR ---
PT ALERT AND ORIENTED X2-3 REORIENTED NEEDED, RESPRIATIONS EVEN AND UNLABORED ON ROOM AIR, RIGHT SUBCLAVIAN IN PLACE, SEE IV FLOWSHEET, SOUSA IN PLACE DRIANING CLEAR YELLOW FLUID, NO NEEDS NOTED, CALL LIGHT WITHIN REACH VSS WILL CONTINUE TO MONITOR
--- NOTE | 2016-09-24 09:00 | NUR ---
PT REPOSITIONED, PARTIAL LINEN CHANGE COMPLETE, DENIES ALL NEEDS, WILL CONTINNUE TO MONITOR
--- NOTE | 2016-09-24 10:12 | NUR ---
* Is the patient Alert and Oriented? Yes 0 * How many steps to enter\exit or inside your home? 0 0 * PCP Dr. Wagoner 0 * Pharmacy [facility] by the track 0 * Preadmission Environment Home with Family 0 * ADLs Independent 0 * Equipment Bedside Commode Cane Rolling Walker 0 * List name and contact numbers for known caregivers / representatives who currently or will assist patient after discharge: Spouse - Db [phone] Daughter - Summer [phone] Son - Ashutosh 0 * Additional services required to return to the preadmission environment? Yes 0 * Can the patient safely return to the preadmission environment? Yes 0 * Has this patient been hospitalized within the prior 30 days at any hospital? No 09/24/2016 10:13 DCP: Discharge Planning Patient Name: ABIODUN VOSS Admission Status: ER Accout number: [id number] Admission Date: 09-23-2016 : 1950 Admission Diagnosis: Attending: SYMONE Current LOS: 1 Planned Disposition: Home with Home Health Primary Insurance: MEDICARE A & B Discharge Planning Comments: CM met with patient to assess dc plans/needs. Patient states she lives at home with her Db & son Ashutosh. She reports she is independent with ADL's. She was not using any assistive devices for mobility but does have a cane, walker, and BSC. She has had home health services in the past through [facility] & wants to use them again - [facility] signed. Case management will follow. Tailer In: Kenia Schofield
--- NOTE | 2016-09-24 11:00 | NUR ---
PT UP IN CHAIR BY PT, VSS, DENIES ALL NEEDS WILL CO NTINUE TO MONITOR
--- NOTE | 2016-09-24 13:00 | NUR ---
PT ALERT, BACK IN BED, CONFUSION CONTINUES, REORIENTED NEEDED, RESPRIATIONS EVEN AND UNLABORED, VSS, DENIES ALL NEEDS, TOTAL LINEN CHANGE AND PARTIAL BATH GIVEN, WILL CONTINUE TO MONITOR
--- NOTE | 2016-09-24 15:00 | NUR ---
PT ALERT, RESPIRAITONS EVEN AND UNLABORED, DENIES ALL NEEDS, REPOSITIONED, VSS, WILL CONTIUE TO MONITOR
[2016-09-24 16:44] LABS: BASOPHILS 0.3 % (0-2); HEMATOCRIT 28.9 % (36.0-48.0); HEMOGLOBIN 10.2 g/dL (12-16); LYMPHOCYTES 22.3 % (15-50); MCHC 35.3 g/dL (31.0-37.0); MCV 90.6 fL (80.0-100.0); MEAN PLATELET VOLUME 9.1 fL (7.4-10.4); MONOCYTES 16.6 % (2-11); NEUTROPHILS 58.8 % (40-80); PLATELET COUNT 233 10x3/uL (130-400); RBC 3.19 10x6/uL (4.00-5.40); RDW 15.6 % (11.5-14.5); WBC 3.5 10x3/uL (4.8-10.8)
[2016-09-24 16:54] LABS: CARBON DIOXIDE 26.8 mmol/L (21.0-32.0); CHLORIDE - SERUM 88 mmol/L (98-107); CREATININE - SERUM 0.6 mg/dL (0.6-1.3); SODIUM 121 mmol/L (136-145); eGFR NON AFRICAN AMERICAN > 90 mL/min (90-120)
[2016-09-24 16:55] LABS: CALC OSMOLALITY 240 mosm/kg (275-300); GLUCOSE 121 mg/dL (74-106); UREA NITROGEN 1 mg/dL (7-18)
[2016-09-24 16:56] LABS: POTASSIUM - SERUM 2.9 mmol/L (3.5-5.1)
--- NOTE | 2016-09-24 17:00 | NUR ---
PT ALERT, RESPRIATIONS EVEN AND UNLABORED, PRN TYLENOL FOR ABD PAIN, PRN ATIVAN FOR INCREASING AGITATION RELATED TO CONFUSION, DENIES ALL NEEDS VSS WILL CONTINUE TO MONITOR
--- NOTE | 2016-09-24 19:30 | NUR ---
SHIFT ASSESSMENT COMPLETE. PUPILS 3 MM, BRISK REACTION TO LIGHT. MOIST MUCOUS MEMBRANES, SINGLE FURROW LINE ON TONGUE. S1S2 AUDIBLE. EXPIRATORY WHEEZES IN ALL LOBES WITH SOME CRACKLES NOTED. PULSES +2. BOWEL SOUNDS ACTIVE IN ALL QUADRANTS. ASSISTED PT ON BED BONILLA AND WATERY, BLACK STOOL IS WHAT WAS COLLECTED. BILAT BRUISING ON ARMS AND LEGS. MIDLINE INCISION SCAR ON ABDOMEN. ABDOMEN FLAT. PT STATES THAT HER STOMACH IS HURTING. ADMINISTERED PRN PAIN MEDICATIONS AND REPOSITONED PT. BILAT EQUAL HAND TRIMMING DEPARTMENT BLOCKER AND FOOT PUMPS. SCDS REMOVED TO ASSESS SKIN, WNL. VSS. BED IN LOWEST POSITION. CALL LIGHT IN REACH. WILL CONTINUE TO MONITOR.
--- NOTE | 2016-09-24 21:00 | NUR ---
BROUGHT PT SPRITE PER REQUEST. ASSISSTED TO BED BONILLA. NO BM AT THIS TIME. CALL LIGHT IN REACH. REPOSITIONED FOR COMFORT. WILL CONTINUE TO MONITOR.
--- NOTE | 2016-09-24 22:21 | NUR ---
COMPLETE LINEN CHANGE. ABHINAV'S BUTT PASTE APPLIED TO RED AREA. REPOSITONED TO THE L SIDE. WARM BLANKET PROVIDED. CALL LIGHT IN REACH. WILL CONTINUE TO MONITOR.
--- NOTE | 2016-09-24 23:00 | NUR ---
PT SLEEPING IN BED. WOKE HER TO DO REASSESSMENT. PT VERY CALM. NO FURTHER CHANGES AT THIS TIME. REFILLED PT SPRITE PER REQUEST. CALL LIGHT IN REACH. WILL CONTINUE TO MONITOR.
[2016-09-24 23:37] LABS: MAGNESIUM - SERUM 1.2 mg/dL (1.8-2.4)
[2016-09-24 23:39] LABS: POTASSIUM - SERUM 3.5 mmol/L (3.5-5.1)
[2016-09-25] VITALS (16 sets, daily range): BP systolic 107–161; BP diastolic 72–108
--- NOTE | 2016-09-25 01:00 | NUR ---
PT RESTING IN BED WATCHING TV. REFILLED HER DRINK. NO FURTHER REQUESTS. BED IN LOWEST POSITION. WILL CONTINUE TO MONITOR.
--- NOTE | 2016-09-25 03:30 | NUR ---
REASSESSMENT COMPLETE. NO CHANGES NOTED. VSS. BED IN LOWEST POSITION. WILL CONTINUE TO MONITOR.
--- NOTE | 2016-09-25 05:00 | NUR ---
SOUSA CARE PROVIDED. REPOSITIONED TO R SIDE. PT RESTING AT THIS TIME. CALL LIGHT IN REACH. BED IN LOWEST POSITION.
[2016-09-25 05:43] LABS: BASOPHILS 0.3 % (0-2); HEMATOCRIT 29.1 % (36.0-48.0); HEMOGLOBIN 10.3 g/dL (12-16); IMMATURE GRANULOCYTES 0.3 % (0-5); LYMPHOCYTES 25.5 % (15-50); MCH 32.2 pg (26.0-34.0); MCHC 35.4 g/dL (31.0-37.0); MCV 90.9 fL (80.0-100.0); MEAN PLATELET VOLUME 9.1 fL (7.4-10.4); MONOCYTES 13.8 % (2-11); NEUTROPHILS 54.1 % (40-80); PLATELET COUNT 245 10x3/uL (130-400); RDW 15.7 % (11.5-14.5); WBC 3.8 10x3/uL (4.8-10.8)
[2016-09-25 05:56] LABS: ALKALINE PHOSPHATASE 162 U/L (46-116); ALT (SGPT) 31 U/L (10-68); BILIRUBIN - TOTAL 0.62 mg/dL (0.2-1.3); CALC OSMOLALITY 249 mosm/kg (275-300); CALCIUM 8.4 mg/dL (8.5-10.1); CARBON DIOXIDE 23.4 mmol/L (21.0-32.0); CHLORIDE - SERUM 94 mmol/L (98-107); CREATININE - SERUM 0.5 mg/dL (0.6-1.3); GLUCOSE 134 mg/dL (74-106); POTASSIUM - SERUM 3.8 mmol/L (3.5-5.1); PROTEIN - SERUM 6.1 g/dL (6.4-8.2); SODIUM 125 mmol/L (136-145); UREA NITROGEN 1 mg/dL (7-18); eGFR NON AFRICAN AMERICAN > 90 mL/min (90-120)
--- NOTE | 2016-09-25 07:00 | NUR ---
PATIENT IS SLEEPING, AND AROUSES EASILY TO VERBAL STIMULI. PATIENT IS ORIENTED TO PERSON, YEAR, , BUT DISORIENTED TO PLACE AND SITUATION. HEART TONES REG RHYTHYM AUSCULTATED WITH TACHY RATE, ALL SMC'S ARE INTACT. LUNGS CTA THROUGHOUT ALL LOBES, RESP UNLABORED AND EVEN. PATIENT IS ON RA AT THIS TIME. ABDOMEN IS SOFT AND NON-TENDER TO PALPATION, BS PRESENT X4 QUADS. SKIN IS WARM, DRY, AND PALE. PATIENT HAS MULTIPLE BRUISING NOTED ON UPPER ARMS AND CHEST. STATURE IS FRAIL. TRIPLE LUMEN NOTED IN R SUBCLAVIAN WITH D5 NS WITH 20MEQ OF KCL INFUSING AT 100ML/HR WITHOUT REDNESS OR EDEMAN NOTED. SOUSA CATH INTACT WITH CLEAR YELLOW URINE NOTED. PATIENT HAS SCD'S ON BILATERALLY. CALL LIGHT WITHIN REACH AND BED IS IN LOW POSISTION.
--- NOTE | 2016-09-25 09:00 | NUR ---
PATIENT VISITING WITH , REORIENTS EASILY, AND STATES THAT SHE JUST KEEPS FORGETTING WHERE SHE IS. PATIENT DOES KNOW THE YEAR, AND HER NAME.
--- NOTE | 2016-09-25 11:41 | NUR ---
PHYSICIAN ORDERED FOR PATIENT TO BE TRANSFERRED TO [facility] 2, ORDERS RECEIVED.
--- NOTE | 2016-09-25 12:00 | NUR ---
DR. EBRRY HERE IN TO SEE PATIENT. PATIENT HAD BM WITH DK BROWN TO BLACK LIQUID, PHYSICIAN ORDERED STOOL GUIACC ON STOOL.
--- NOTE | 2016-09-25 13:48 | NUR ---
PATIENT PULLED DRESSING OFF OF TRIPLE LUMEN CATH. CATHETER SITE CLEANED AND REDRESSED WITH SALES PRODUCT SPECIALIST USED.
--- NOTE | 2016-09-25 14:00 | NUR ---
PATIENT IS RESTING QUIETLY AT THIS TIME WITH NO CHANGES IN CONDITION.
--- NOTE | 2016-09-25 15:00 | NUR ---
PATIENT IS ON BEDPAN FOR BM. ENCOURAGED PATIENT TO USE CALL LIGHT WHEN FINISHED.
--- NOTE | 2016-09-25 15:03 | NUR ---
TYLENOL GIVEN FOR ABDOMINAL PAIN. PATIENT STATES PAIN IS 9 ON PAIN SCALE, AND DECRIBES PAIN CRAMPING.
--- NOTE | 2016-09-25 15:30 | NUR ---
PATIENT IS SLEEPING AT THIS TIME, AROUSES TO VERBAL STIMULI EASILY. CALL LIGHT WITHIN REACH, AND BED IS IN LOW POSISTION WITH SR UP X2.
[2016-09-25 15:33] LABS: CALCIUM 8.2 mg/dL (8.5-10.1); CARBON DIOXIDE 23.5 mmol/L (21.0-32.0); CHLORIDE - SERUM 94 mmol/L (98-107); CREATININE - SERUM 0.6 mg/dL (0.6-1.3); GLUCOSE 113 mg/dL (74-106); MAGNESIUM - SERUM 2.1 mg/dL (1.8-2.4); POTASSIUM - SERUM 3.7 mmol/L (3.5-5.1); SODIUM 126 mmol/L (136-145); eGFR NON AFRICAN AMERICAN > 90 mL/min (90-120)
[2016-09-25 15:36] LABS: CALC OSMOLALITY 250 mosm/kg (275-300); UREA NITROGEN < 2 mg/dL (7-18)
--- NOTE | 2016-09-25 17:40 | NUR ---
PATIENT IS EATING, SHE KEEPS STATING "IM JUST NOT MUCH OF AN EATER". PATIENT ENCOURAGED TO DRINK ENSURE AT LEAST.
--- NOTE | 2016-09-25 19:30 | NUR ---
SHIFT ASSESSMENT COMPLETE. PT IS CONFUSED BUT REORIENTS EASILY. PUPILS SIZE 3MM, BRISK REACTION TO LIGHT. NO TEETH, MUCOUS MEMBRANES MOIST, TONGUE MIDLINE. BRUISES BILAT ON ARMS AND LEGS. S1S2 AUDIBLE. EXPIRATORY WHEEZES BILAT THROUGH ALL LOBES. BOWEL SOUNDS ACTIVE X4. PULSES +2. COMPLETE LINEN CHANGE. WATERY BLACK STOOL NOTED ON PADS. PT UP IN CHAIR WITH PARTIAL ASSIST. SOUSA CATH DRAINING YELLOW URINE. RT SUBCLAVIAN CVL DRESSING CDI. D5 WITH 20 K INFUSING AT 100 ML/HR. CALL LIGHT IN REACH. BED IN LOWEST POSITION. WILL CONTINUE TO MONITOR.
--- NOTE | 2016-09-25 21:30 | NUR ---
PT CONFUSED AND ASKING TO SPEAK WITH HER AND DAUGHTER. I INFORED HER THAT I WOULD TRY TO CALL THEM BUT WHEN I DID THEY DID NOT ANSWER. HELPED PT TO BEDPAN. TRACE AMOUNT OF STOOL. BED IN LOWEST POSITION. CALL LIGHT IN REACH.
--- NOTE | 2016-09-25 23:00 | NUR ---
PT AWAKE AND SITTING UP IN BED WATCHING TV AND ASKING FOR HER . PT IS CONFUSED BUT REORINTED WELL AND REMEBERS WHY SHE IS HERE NOW. VSS. CALL LIGHT IN REACH. BED IN LOWESET POSITION. WILL CONTINUE TO MONITOR.
--- NOTE | 2016-09-26 01:00 | NUR ---
PT CONFUSED AND PULLED OFF ALL ELECTRODES AND CVL DRESSING. STERILE DRESSING CHANGED PERFORMED. NEW ELECTRODES IN PLACE. REORIENTED PT. CURTAIN OPEN AND PT IN SIGHT OF NURSE'S STATION. BED IN LOWEST POSITION. WILL CONTINUE TO MONITOR.
[2016-09-26 03:00] VITALS: BP 138/99
--- NOTE | 2016-09-26 03:35 | NUR ---
PARTIAL LINEN CHANGE COMPLETE. PT RATES PAIN IS A 5/10 AND SHE APPEARS TO BE ANXIOUS AND CONFUSED. REORIENTED HER. ADMINISTERED PRN PAIN MEDICATION. REPOSITIONED FOR COMFORT. CALL LIGHT IN REACH. WILL CONTINUE TO MONITOR.
[2016-09-26 04:50] LABS: EOSINOPHILS 10.8 % (0-7); HEMATOCRIT 27.4 % (36.0-48.0); HEMOGLOBIN 9.4 g/dL (12-16); LYMPHOCYTES 32.5 % (15-50); MCH 31.5 pg (26.0-34.0); MCHC 34.3 g/dL (31.0-37.0); MCV 91.9 fL (80.0-100.0); MONOCYTES 17.7 % (2-11); PLATELET COUNT 210 10x3/uL (130-400); RBC 2.98 10x6/uL (4.00-5.40); RDW 15.9 % (11.5-14.5); WBC 3.1 10x3/uL (4.8-10.8)
--- NOTE | 2016-09-26 05:00 | NUR ---
SOUSA CARE PROVIDED. PT LAYING IN BED REQUESTING TO TALK TO HER . I EDUCATED HER ON HOW TO USE THE PHONE. BUTT CREAM APPLIED TO RED AREA. BED IN LOWEST POSITON. CALL LIGHT IN REACH.
[2016-09-26 05:02] LABS: CALCIUM 8.2 mg/dL (8.5-10.1); CARBON DIOXIDE 26.1 mmol/L (21.0-32.0); CHLORIDE - SERUM 93 mmol/L (98-107); CREATININE - SERUM 0.5 mg/dL (0.6-1.3); GLUCOSE 116 mg/dL (74-106); MAGNESIUM - SERUM 1.8 mg/dL (1.8-2.4); PHOSPHOROUS 2.1 mg/dL (2.5-4.9); SODIUM 127 mmol/L (136-145); eGFR NON AFRICAN AMERICAN > 90 mL/min (90-120)
[2016-09-26 05:05] LABS: CALC OSMOLALITY 251 mosm/kg (275-300); POTASSIUM - SERUM 3.1 mmol/L (3.5-5.1); UREA NITROGEN 1 mg/dL (7-18)
[2016-09-26 07:00] VITALS: BP 126/74
--- NOTE | 2016-09-26 07:00 | NUR ---
PT REPORT REC'D, PT CARE ASSUMED, PT CONFUSED TO PLACE, TIME AND SITUATION, ASKING "WHERE'S MY ? WHERE'S MY KIDS?" REORIENTATED PT TO PLACE AND SITUATION, INFORMED HER THAT SHE IS IN ICU AT [facility]. RIGHT SUBCLAVIAN CVL WITH FLUIDS INFUSING, SEE FLOW SHEET, DRESSING CDI. SOUSA CATHETER FREE OF KINKS WITH CLEAR YELLOW URINE RETURN TO GRAVITY. SHIFT ASSESSMENT COMPLETED, SEE FLOW SHEET. ROOM FREE OF CLUTTER, CALL LIGHT IN REACH, WILL CONTINUE TO MONITOR PT.
--- NOTE | 2016-09-26 09:34 | NUR ---
NUTRITION MONITORING & EVAL CHART REVIEWED, PT VISIT. REG DIET BUT NO INTAKE AT BREAKFAST. PT STATES SHE WANTS TO WAIT UNTIL "I GO UPSTAIRS". "I DON'T WANT TO GET CAUGHT IN THAT CROWD". ENCOURAGED PT TO EAT LUNCH TODAY. PT VOICED UNDERSTANDING. RD FOLLOWING
--- NOTE | 2016-09-26 09:51 | NUR ---
PT REPORT CALLED TO MIO SCHAFER, PT TO TRANSFER TO ROOM 2101 VIA WHEELCHAIR.
--- NOTE | 2016-09-26 11:30 | NUR ---
0954- RECEIVED REPORT FROM HANH LEUNG IN IN ICU. HANH LEUNG STATES SHE HAS ALREADY DONE PTS SHIFT ASSESSMENT AND HAS CHANGED PTS DRESSING TO RIGHT SUBCLAVIAN. WILL AWAIT PT ARRIVAL. 1019- RECEIVED PT VIA WHEELCHAIR FROM ICU NURSE HANH LEUNG. PT IS ALERT. ON ROOM AIR. IV SEEN TO RIGHT SUBCLAVIAN WITH D5 NS WITH 20K+ RUNNING AT 100CC ORDERED. IV ANTIBIOTIC CURRENTLY RUNNING NOW. SOUSA CATHETER SEEN WITH YELLOW URINE. BRUISES SEEN TO BILATERAL ARMS. EX WHEEZES HEARD ON AUSCULTATION IN ALL FOUR LOBES. BOWEL SOUNDS ARE ACTIVE. RADIAL PULSES ARE NORMAL. WILL DO QUICKSTART AND CONTINUE TO MONITOR.
[2016-09-26 12:46] VITALS: BP 161/86
[2016-09-26 15:58] VITALS: BP 147/77
--- NOTE | 2016-09-26 17:43 | NUR ---
PT IS CURRENTLY SITTING UP IN BED WITH EYES OPEN RESTING. PT DENIES ANY NEED AT CURRENT TIME. TURNED PTS AIR ON PT STATES IT IS HOT IN ROOM. WILL CONTINUE TO MONITOR.
[2016-09-26 19:00] VITALS: BP 148/86
--- NOTE | 2016-09-26 21:00 | NUR ---
SHIFT ASSESSMENT COMPLETED. PATIENT GETS CONFUSED, BUT REORIENTS EASILY. IV INFUSING VIA RT. TLSC. BED LOW POSITIOM. CALL LIGHT IN REACH. WILL CONTINUE TO MONITOR.
[2016-09-27] VITALS: BP 143/76
[2016-09-27 04:00] VITALS: BP 160/91
[2016-09-27 06:20] LABS: BASOPHILS 0.8 % (0-2); EOSINOPHILS 14.9 % (0-7); HEMATOCRIT 27.4 % (36.0-48.0); HEMOGLOBIN 9.5 g/dL (12-16); LYMPHOCYTES 29.7 % (15-50); MCH 32.1 pg (26.0-34.0); MCHC 34.7 g/dL (31.0-37.0); MCV 92.6 fL (80.0-100.0); MONOCYTES 13.6 % (2-11); PLATELET COUNT 207 10x3/uL (130-400); RBC 2.96 10x6/uL (4.00-5.40); RDW 16.3 % (11.5-14.5)
[2016-09-27 06:36] LABS: CALC OSMOLALITY 261 mosm/kg (275-300); CALCIUM 8.3 mg/dL (8.5-10.1); CHLORIDE - SERUM 100 mmol/L (98-107); CREATININE - SERUM 0.6 mg/dL (0.6-1.3); GLUCOSE 101 mg/dL (74-106); MAGNESIUM - SERUM 1.6 mg/dL (1.8-2.4); PHOSPHOROUS 2.3 mg/dL (2.5-4.9); SODIUM 133 mmol/L (136-145); UREA NITROGEN 2 mg/dL (7-18); eGFR NON AFRICAN AMERICAN > 90 mL/min (90-120)
--- NOTE | 2016-09-27 07:51 | NUR ---
AM ROUNDING- RECEIVED REPORT FROM JOB COUNSELOR NURSE VASILE. PT IS CURRENTLY SITTING UP IN BED WITH EYES OPEN. PT IS UPSET BECAUSE SHE "CAN'T HAVE A DRINK OF WATER". I INFORMED PT THAT PER ORDERS SHE CANNOT HAVE ANY "FREE WATER" AND PT STATES "WELL THEN I'M GETTING OUT OF HERE, I CAN'T EVEN HAVE A DRINK OF WATER". ON ROOM AIR. NO MONITOR. IV SEEN TO RIGHT CVL WITH D5 NS WITH 20K+ RUNNING AT 100CC. SOUSA CATHETER SEEN. WILL CONTINUE TO MONITOR AND CONTINUE WITH PLAN OF CARE.
[2016-09-27 07:54] VITALS: BP 151/81
--- NOTE | 2016-09-27 08:21 | NUR ---
DR. WOO ON UNIT. DR. WOO GAVE VERBAL ORDERS TO D/C PTS IV FLUIDS AND TO D/C PTS SOUSA CATHETER. DR. WOO ASKED IF PT IS GETTING SOMETHING FOR POTASSIUM. I INFORMED DR. WOO THAT PT IS ON EP AND I WILL TX PER PROTOCOL. DR. WOO STATES OKAY. I INFORMED DR. WOO THAT PT IS NOT HAPPY ABOUT THE FLUID RESTRICTION (1000CC PER DAY). DR. WOO STATES THAT IS OKAY. WILL DO ORDERED AND CONTINUE TO MONITOR.
--- NOTE | 2016-09-27 11:18 | NUR ---
0959Yuni WOOD, MACHINE TESTER REMOVED PTS SOUSA CATHETER WITH CATH TIP INTACT. 9CC PULLED OUT OF BALLOON SYRINGE. TOLERATED WELL. IV FLUIDS D/C ORDERED BY DR. WOO. ENCOURAGED PT TO LET STAFF KNOW WHEN NEEDING TO GO TO THE RESTROOM SO WE CAN ASSIST HER NOW THAT SHE DOES NOT HAVE SOUSA CATHETER. PT AGREES. WILL CONTINUE TO MONITOR.
[2016-09-27 12:20] VITALS: BP 131/78
--- NOTE | 2016-09-27 15:35 | NUR ---
Patient Name: ABIODUN VOSS Encounter No: [id number] : 1950 Primary Insurance: MEDICARE A & B Anticipated DC Date: 09-28-2016 Planned Disposition: Home with Home Health External Planned Provider: [facility] DCP follow-up note: CM RECEIVED ORDER FOR DICHARGE PLANNING. CM MET WITH PT IN ROOM TO DISCUSS DISCHARGE NEEDS AND PLANNING. CM DISCUSSED AVAILABILITY OF HOME HEALTH, REHAB SERVICES AND MEDICAL EQUIPMENT. PT WILL NOT CONSIDER CORRECTION FACILITY PLACEMENT OR REHAB PLACEMENT. PT WILL ACCEPT HOME HEALTH WITH [facility] PREVIOUSLY SIGNED. PT REPORTS HER 40 YEAR OLD SON LIVES WITH HER AND ASSISTS HER IF NEEDED AND SHE ALSO HAS HER DAUGHTER WHO LIVES UPSTAIRS FOR ASSISTANCE IF NEEDED. PT REPORTS HER SON WILL PICK HER UP TO TRANSPORT HOME AT DISCHARGE TOMORROW. IMPORTANT MESSAGE FROM MEDICARE PROVIDED AND EXPLAINED. PT PLANS TO DISCHARGE HOME WITH HER ADULT CHILDREN, WANTS [facility]. CM TO ARRANGE HOME HEALTH WITH AGREEMENT OF PHYSICIAN AND RECEIPT OF HOME HEALTH ORDERS. Juan Marte, CASE MANGEMENT
[2016-09-27 15:50] VITALS: BP 143/79
--- NOTE | 2016-09-27 17:49 | NUR ---
PT IS CURRENTLY SITTING UP ON SIDE OF BED WITH EYES OPEN. PT STATES " I'M JUST TRYING TO GET OVER THIS CRAP FROM WHAT YOU GAVE ME". PT REFFERING TO ORAL POTASSIUM GIVEN PER PROTOCOL DUE TO PTS POTASSIUM BEING 3.1. NO NEED AT CURRENT TIME. WILL CONTINUE TO MONITOR.
--- NOTE | 2016-09-27 20:00 | NUR ---
REPORT RECEIVED AND CARE ASSUMED. LYING IN BED QUIETLY WATCHING TV. PATIENT IS CONFUSED, BUT REORIENTS EASILY. NO DISTRESS NOTED. AMBULATES WITHOUT ASSISTANCE. RIGHT SUBCLAVIAN TRIPLE LUMEN FLUSHED AND PATENT POTASSIUM DRAWN. BED IN LOW POSITION. CALL LIGHT IN REACH. SIDE RAILS UP X 2. WILL CONTINUE TO MONITOR.
[2016-09-27 20:40] VITALS: BP 146/93
--- NOTE | 2016-09-27 21:00 | NUR ---
SHIFT ASSESSMENT COMPLETED PER FLOW SHEET. VSS.
[2016-09-28 00:03] VITALS: BP 146/86
--- NOTE | 2016-09-28 03:48 | NUR ---
TYLENOL 650 MG PO GIVEN FOR HEADACHE AND ABDOMENAL PAIN AT LEVEL #9.
[2016-09-28 04:17] VITALS: BP 163/87
[2016-09-28 06:24] LABS: BASOPHILS 0.5 % (0-2); EOSINOPHILS 11.7 % (0-7); HEMATOCRIT 26.5 % (36.0-48.0); HEMOGLOBIN 9.1 g/dL (12-16); LYMPHOCYTES 31.1 % (15-50); MCH 31.9 pg (26.0-34.0); MCHC 34.3 g/dL (31.0-37.0); MEAN PLATELET VOLUME 9.3 fL (7.4-10.4); MONOCYTES 17.5 % (2-11); NEUTROPHILS 39.2 % (40-80); PLATELET COUNT 215 10x3/uL (130-400); RBC 2.85 10x6/uL (4.00-5.40); RDW 16.5 % (11.5-14.5); WBC 4.3 10x3/uL (4.8-10.8)
[2016-09-28 06:48] LABS: CALCIUM 8.6 mg/dL (8.5-10.1); CARBON DIOXIDE 24.2 mmol/L (21.0-32.0); CHLORIDE - SERUM 97 mmol/L (98-107); CREATININE - SERUM 0.5 mg/dL (0.6-1.3); GLUCOSE 86 mg/dL (74-106); MAGNESIUM - SERUM 1.5 mg/dL (1.8-2.4); PHOSPHOROUS 2.8 mg/dL (2.5-4.9); SODIUM 124 mmol/L (136-145); eGFR NON AFRICAN AMERICAN > 90 mL/min (90-120)
[2016-09-28 06:58] LABS: CALC OSMOLALITY 244 mosm/kg (275-300); UREA NITROGEN 1 mg/dL (7-18)
[2016-09-28 08:20] VITALS: BP 141/71
--- NOTE | 2016-09-28 08:21 | NUR ---
ASSESSMENT DONE. DENIES NEEDS.
--- NOTE | 2016-09-28 10:21 | NUR ---
ASSISTED TO BR. IV PATENT. WILL MONITOR NEEDS.
[2016-09-28 12:31] VITALS: BP 125/71
--- NOTE | 2016-09-28 16:48 | NUR ---
WITHOUT CHANGES OR DISTRESS NOTED AT THIS TIME. DENIES NEEDS.
--- NOTE | 2016-09-28 19:20 | NUR ---
PT SIT UP IN BED AND WATCH TV.
--- NOTE | 2016-09-29 03:33 | NUR ---
REST QUIETLY IN BED, EYE CLOSE, CALL LIGHT WITHIN REACH.
[2016-09-29 06:46] LABS: BASOPHILS 0.9 % (0-2); EOSINOPHILS 10.9 % (0-7); HEMATOCRIT 28.1 % (36.0-48.0); HEMOGLOBIN 9.5 g/dL (12-16); LYMPHOCYTES 32.6 % (15-50); MCH 31.8 pg (26.0-34.0); MCHC 33.8 g/dL (31.0-37.0); MEAN PLATELET VOLUME 9.3 fL (7.4-10.4); MONOCYTES 21.8 % (2-11); NEUTROPHILS 33.8 % (40-80); PLATELET COUNT 221 10x3/uL (130-400); RBC 2.99 10x6/uL (4.00-5.40); RDW 16.9 % (11.5-14.5); WBC 3.4 10x3/uL (4.8-10.8)
[2016-09-29 06:55] LABS: CALC OSMOLALITY 261 mosm/kg (275-300); CALCIUM 8.7 mg/dL (8.5-10.1); CARBON DIOXIDE 26.9 mmol/L (21.0-32.0); CHLORIDE - SERUM 101 mmol/L (98-107); CREATININE - SERUM 0.6 mg/dL (0.6-1.3); GLUCOSE 86 mg/dL (74-106); MAGNESIUM - SERUM 1.8 mg/dL (1.8-2.4); POTASSIUM - SERUM 3.8 mmol/L (3.5-5.1); SODIUM 133 mmol/L (136-145); eGFR NON AFRICAN AMERICAN > 90 mL/min (90-120)
[2016-09-29 06:57] LABS: UREA NITROGEN 4 mg/dL (7-18)
--- NOTE | 2016-09-29 07:17 | NUR ---
AM ROUNDS- PT IN BED, STATES THAT SHE IS HURTING WILL CHECK TO SEE WHAT SHE HAS ORDERED FOR PAIN AND PROVIDED WITH SOME IF SHE HAS ANYTHING ORDERED. PT IN BED, DENIES ANY OTHER NEEDS AT THIS TIME. BED LOW AND LOCKED. BED RAILS X2, CALL LIGHT IN REACH, NAD NOTED, WILL CONTINUE TO MONITOR.
--- NOTE | 2016-09-29 08:52 | NUR ---
ADMINISTERED MORNING MEDS AND 650MG OF TYLENOL FOR PAIN LEVEL OF 8/10. PT IN BED, PT DENIES ANY OTHER NEEDS AT THIS TIME. CALL LIGHT IN REACH, NAD NOTED, WILL CONTINUE TO MONITOR.
--- NOTE | 2016-09-29 10:41 | NUR ---
MARY ALICE GASTON ORDER EPOGEN TO BE GIVEN IV, INFOMRED HER THAT PT DOES NOT HAVE IV ACCESS AND THAT DR. ASCENCIO PUT IN CONSULT FOR PORT PLACEMENT. MARY ALICE GASTON STATED TO GO AHEAD AND GIVE IT SUBCUTE.
[2016-09-29] MEDS ORDERED: THERMOTABS 1 GM1 GM PO (12:08)
--- NOTE | 2016-09-29 13:41 | NUR ---
PROVIDED VERBAL AND WRITTEN DISCHARGE TEACHING INSTRUCTIONS TO PT. PT VERBALIZED UNDERSTANDING REGARDING TEACHING. PT WAITING ON TO COME PICK HER UP. WILL LET ME KNOW WHEN HE GETS HERE SO I CAN D/C CVL LINE. PT DENIES ANY NEEDS AT THIS TIME. CALL LIGHT IN REACH, NAD NOTED, WILL CONTINUE TO MONITOR.
--- NOTE | 2016-09-29 15:20 | NUR ---
D/C RIGHT CVL, APPLIED PRESSURE FOR 5MINUTES. NO BLEEDING NOTED TO SITE. PROVIDED DISCHARGE TEACHING TO PT'S , HE VERBALIZED UNDERSTANDING. HE WILL LET BALL MILL MIXER OR NURSE WHEN PT IS READY FOR WHEELCHAIR. 3999- PT LEFT UNIT VIA WHEELCHAIR, ACCOMPANIED BY , NAD NOTED.
--- NOTE | 2016-09-29 19:58 | NUR ---
Late Entry Patient has previously been on service w/ [facility]. She had some difficulty recalling providers. She is waiting her daughter, Slime [place]. Patient was not sure of address or contact phone number. CM spoke w/primary nurse, Rachelle, and requested discharge address and phone number for home health. CM will fax when information is received. Hank spoke with Kenia at [facility], the subway conductor nurse, to advise of discharge. Faxed d/c instructions and referral information.
== END 2016-09-29 15:56 | disposition home health service (06) | DRG 871 ==
LOC: D.ER 02:42 → D.M2 04:51 → D.ICU 04:51 → D.M2 09-26 10:07
PROVIDERS: Emergency Medicine; Family Medicine; Internal Medicine; Internal Medicine Nephrology; ADMIT Family Medicine
PROC: 0T9B70Z Drainage of Bladder with Drainage Device, Via Natural or Artificial Opening (ICD-10-PCS; principal; 2016-09-23)
PROC: 05H533Z Insertion of Infusion Device into Right Subclavian Vein, Percutaneous Approach (ICD-10-PCS; 2016-09-23)
DX: A41.9 Sepsis, unspecified organism (principal); G93.40 Encephalopathy, unspecified; E87.1 Hypo-osmolality and hyponatremia; E87.2 Acidosis; E87.6 Hypokalemia; E16.2 Hypoglycemia, unspecified; J44.9 Chronic obstructive pulmonary disease, unspecified; I10 Essential (primary) hypertension; G40.909 Epilepsy, unspecified, not intractable, without status epilepticus; I25.10 Atherosclerotic heart disease of native coronary artery without angina pectoris; D64.9 Anemia, unspecified; Z86.73 Personal history of transient ischemic attack (TIA), and cerebral infarction without residual deficits; I25.2 Old myocardial infarction

== ENCOUNTER 2016-12-25 16:25 | Inpatient (IN) | payer MEDICARE ==
[~2016-12-25 16:25] MED LIST changes: +BUSPAR10 MG; +LISINOPRIL10 MG; +TENORMIN50 MG; +THERMOTABS 1 GM1 GM PO
[2016-12-25 17:02] LABS: HEMATOCRIT 32.1 % (36.0-48.0); HEMOGLOBIN 11.1 g/dL (12-16); MCH 32.3 pg (26.0-34.0); MCHC 34.6 g/dL (31.0-37.0); MCV 93.3 fL (80.0-100.0); MEAN PLATELET VOLUME 8.8 fL (7.4-10.4); PLATELET COUNT 217 10x3/uL (130-400); RBC 3.44 10x6/uL (4.00-5.40); WBC 2.4 10x3/uL (4.8-10.8)
[2016-12-25 17:27] LABS: ALBUMIN 3.3 g/dL (3.4-5.0); ALKALINE PHOSPHATASE 190 U/L (46-116); ALT (SGPT) 28 U/L (10-68); BILIRUBIN - TOTAL 0.24 mg/dL (0.2-1.3); CALC OSMOLALITY 246 mosm/kg (275-300); CALCIUM 8.9 mg/dL (8.5-10.1); CARBON DIOXIDE 19.1 mmol/L (21.0-32.0); CHLORIDE - SERUM 88 mmol/L (98-107); CREATININE - SERUM 0.6 mg/dL (0.6-1.3); PROTEIN - SERUM 6.6 g/dL (6.4-8.2); SODIUM 123 mmol/L (136-145); UREA NITROGEN 5 mg/dL (7-18); eGFR NON AFRICAN AMERICAN > 90 mL/min (90-120)
[2016-12-25 17:33] LABS: GLUCOSE 141 mg/dL (74-106)
[2016-12-25 17:37] LABS: EOSINOPHILS 3 % (0-7); LYMPHOCYTES 35 % (15-50); MONOCYTES 15 % (2-11); NEUTROPHILS 47 % (40-80)
[2016-12-25 17:38] LABS: PLATELET ESTIMATE NORMAL
[2016-12-25 17:39] LABS: APPEARANCE CLEAR (CLEAR); BILIRUBIN NEGATIVE (NEGATIVE); COLOR YELLOW (YELLOW); GLUCOSE NEGATIVE (NEGATIVE); KETONE NEGATIVE (NEGATIVE); NITRITE NEGATIVE (NEGATIVE); PROTEIN NEGATIVE (NEGATIVE); SPECIFIC GRAVITY 1.015 (1.005-1.020); UROBILINOGEN NORMAL (NORMAL)
[2016-12-25 17:40] LABS: UDS - AMPHET NEGATIVE QUAL (NEGATIVE); UDS - BARB NEGATIVE QUAL (NEGATIVE); UDS - BENZO POSITIVE QUAL (NEGATIVE); UDS - COCAINE NEGATIVE QUAL (NEGATIVE); UDS - OPIATE NEGATIVE QUAL (NEGATIVE); UDS - PCP NEGATIVE QUAL (NEGATIVE); UDS - THC NEGATIVE QUAL (NEGATIVE)
--- NOTE | 2016-12-25 21:50 | NUR ---
PER MARIALUISA IN ER DR RIVERS ALREADY CONSULTED
--- NOTE | 2016-12-26 00:08 | NUR ---
DR RIVERS CALLED WITH NOTIFICATION OF CONSULT.
[2016-12-26 01:30] VITALS: BP 98/62; BMI 24.0
--- NOTE | 2016-12-26 01:30 | NUR ---
PATIENT RESTING IN BED WITH NO VISIBLE SIGNS OF DISTRESS. PATIENT DENIES NEEDS AT THIS TIME. ADMISSION ASSESSMENT COMPLETED. PATIENT STATED SHE REMEMBERS TALKING ON THE PHONE AND THEN ATTEMPTING TO WALK TO THE BATHROOM WHEN SHE HUNG UP. PATIENT STATED SHE REMEMBERS FALLING IN HER HALLWAY AT HOME AND THEN CRAWLING TO HER BEDROOM. THE PATIENT STATED AFTER THAT THE NEXT THING SHE REMEMBERS IS BEING IN THE ER. PATIENT'S BED IN LOWEST POSTION, CALL LIGHT WITHIN REACH, AND BED ALARM ON. I EXPLAINED FALL PRECAUTIONS TO THE PATIENT AND ENCOURAGED HER TO CALL IF SHE HAS NEEDS.
[2016-12-26 04:00] VITALS: BP 100/60
[2016-12-26] MEDS ORDERED: GABAPENTIN100 MG PO (04:35)
[2016-12-26] MEDS ORDERED: TENORMIN50 MG PO (04:35)
[2016-12-26] MEDS ORDERED: PRINIVIL10 MG PO (04:36)
[2016-12-26] MEDS ORDERED: BUSPAR10 MG PO (04:36)
--- NOTE | 2016-12-26 07:30 | NUR ---
PATIENT RECEIVED ALERT IN BED. NO SIGNS OF DISTRESS NOTED. REPOSITIONED FOR COMFORT. PATIENT PLACED ON BEDPAN. CALL LIGHT IN REACH. SIDE RAILS UP X2. BED IN LOW POSITION. BED ALARM ON.
[2016-12-26 07:55] VITALS: BP 120/66
--- NOTE | 2016-12-26 08:17 | NUR ---
PATIENT ALERT IN BED WITH FAMILY PRESENT. NO SIGNS OF DISTRESS NOTED. SCHEDULED MEDICATION ADMINISTERED. SIDE RAILS UP X2. BED IN LOW POSITION. CALL LIGHT IN REACH.
[2016-12-26 11:06] VITALS: BMI 24.0
--- NOTE | 2016-12-26 11:10 | NUR ---
ALERT IN BED WATCHING TV. NO SIGNS OF DISTRESS NOTED. BED IN LOW POSITION. SIDE RAILS UP X2. CALL LIGHT IN REACH.
--- NOTE | 2016-12-26 11:44 | NUR ---
Patient Name: ABIODUN VOSS Admission Status: ER Accout number: [id number] Admission Date: 12-25-2016 : 1950 Admission Diagnosis:EPILEPSY, UNSP, NOT INTRACTABLE, WITHOUT STATUS EPILEPT Attending: MARILY Current LOS: 1 Anticipated DC Date: Planned Disposition: Home Primary Insurance: MEDICARE A & B Discharge Planning Comments: CM MET WITH PATIENT TO ASSESS DISCHARGE PLANNING NEEDS. PATIENT STATES THAT SHE LIVES WITH HER EX [facility], AND HE SANDOR BE THE ONE TO TAKE HER HOME AT DISCHARGE. PATIENT HAS BED SIDE COMMODE AT HOME. SHE STATES THAT SHE IS INDEPENDENT WITH HER CARE AND IF SHE NEEDS HELP SHE HAS HER EX . SHE DENIES ANY HOME HEALTH NEEDS OR DME AT THIS TIME. CM WILL CONTINUE TO FOLLOW AND ASSIST FOR DISHCARGE PLANNING NEEDS. PCP:[facility]- Regulator Mechanic: Eve Jensen * Is the patient Alert and Oriented? Yes 0 * How many steps to enter\exit or inside your home? 0 0 * PCP [facility] 0 * Pharmacy [facility] 0 * Preadmission Environment Home with Family 0 * ADLs Independent 0 * Equipment Bedside Commode 0 * List name and contact numbers for known caregivers / representatives who currently or will assist patient after discharge: EX - [facility] 0 * Community resources currently utilized None 0 * Additional services required to return to the preadmission environment? No 0 * Can the patient safely return to the preadmission environment? Yes 0 * Has this patient been hospitalized within the prior 30 days at any hospital? No 0 Grand Total: 0
[2016-12-26 12:19] VITALS: BP 100/55
[2016-12-26 13:28] LABS: CALC OSMOLALITY 248 mosm/kg (275-300); CALCIUM 8.5 mg/dL (8.5-10.1); CHLORIDE - SERUM 90 mmol/L (98-107); CREATININE - SERUM 0.7 mg/dL (0.6-1.3); GLUCOSE 114 mg/dL (74-106); SODIUM 124 mmol/L (136-145); UREA NITROGEN 6 mg/dL (7-18); eGFR NON AFRICAN AMERICAN 89 mL/min (90-120)
[2016-12-26 13:34] LABS: CARBON DIOXIDE 25.7 mmol/L (21.0-32.0); POTASSIUM - SERUM 4.3 mmol/L (3.5-5.1)
[2016-12-26 13:37] LABS: BASOPHILS 0.6 % (0-2); EOSINOPHILS 2.8 % (0-7); HEMATOCRIT 29.4 % (36.0-48.0); HEMOGLOBIN 10.3 g/dL (12-16); LYMPHOCYTES 20.6 % (15-50); MCH 32.9 pg (26.0-34.0); MCV 93.9 fL (80.0-100.0); MEAN PLATELET VOLUME 8.9 fL (7.4-10.4); MONOCYTES 20.8 % (2-11); NEUTROPHILS 55.2 % (40-80); PLATELET COUNT 225 10x3/uL (130-400); RBC 3.13 10x6/uL (4.00-5.40); RDW 17.3 % (11.5-14.5)
[2016-12-26 13:41] LABS: WBC 3.6 10x3/uL (4.8-10.8)
[2016-12-26 15:59] VITALS: BP 103/59
--- NOTE | 2016-12-26 16:00 | NUR ---
ALERT IN BED WITH FAMILY PRESENT. NO SIGNS OF DISTRESS NOTED. SIDE RAILS UP X2. BED IN LOW POSITION. CALL LIGHT IN REACH.
[2016-12-26 20:00] VITALS: BP 110/68
--- NOTE | 2016-12-26 22:31 | NUR ---
1999)REQUESTING IV PAIN MED. MS 2MG TITRATED WITH 2CC NS GIVEN SLOWLY FOR C/O GENERALIZED PAIN. WILL CONTINUE TO MONITOR FOR ANY CHGES. AND FOLLOW CURRENT PLAN OF CARE.
[2016-12-27] VITALS: BP 126/79
--- NOTE | 2016-12-27 01:11 | NUR ---
AWAKE PULLS OUT IV COMPLETE BED BATH WITH LINENS CHANGED DONE. SR UP X2 CALL LIGHT WITHIN REACH.
[2016-12-27 05:35] LABS: BASOPHILS 0.2 % (0-2); EOSINOPHILS 2.6 % (0-7); HEMOGLOBIN 10.9 g/dL (12-16); IMMATURE GRANULOCYTES 0.2 % (0-5); LYMPHOCYTES 6.3 % (15-50); MCH 32.6 pg (26.0-34.0); MCHC 34.1 g/dL (31.0-37.0); MCV 95.8 fL (80.0-100.0); MEAN PLATELET VOLUME 8.9 fL (7.4-10.4); MONOCYTES 5.6 % (2-11); NEUTROPHILS 85.1 % (40-80); PLATELET COUNT 238 10x3/uL (130-400); RBC 3.34 10x6/uL (4.00-5.40); RDW 17.7 % (11.5-14.5)
[2016-12-27 05:37] LABS: WBC 4.6 10x3/uL (4.8-10.8)
[2016-12-27 05:48] LABS: CALC OSMOLALITY 259 mosm/kg (275-300); CALCIUM 8.6 mg/dL (8.5-10.1); CARBON DIOXIDE 26.4 mmol/L (21.0-32.0); CHLORIDE - SERUM 96 mmol/L (98-107); CREATININE - SERUM 0.8 mg/dL (0.6-1.3); GLUCOSE 98 mg/dL (74-106); POTASSIUM - SERUM 4.3 mmol/L (3.5-5.1); SODIUM 131 mmol/L (136-145); UREA NITROGEN 5 mg/dL (7-18); eGFR NON AFRICAN AMERICAN 76 mL/min (90-120)
[2016-12-27 07:57] VITALS: BP 121/71
--- NOTE | 2016-12-27 08:21 | NUR ---
AWAKE AND ALERT. ORIENTED X3 THIS AM. SOME CONFUSION TO PLACE BUT EASILY REORIENTED. LUNGS HAVE CRACKLES THROUGHOUT LUNG CHING, PRODUCTIVE COUGH NOTED WITH CLEAR SPUTUM. WILL MONITOR. SKIN IS INTACT WITHOUT REDNESS BUT MULTIPLE AREAS OF BRUISING NOTED. NO IV AT THIS TIME. SOUSA PATENT WITH CLEAR YELLOW URINE. DENIES NEEDS. ON BED BONILLA AT THIS TIME.
--- NOTE | 2016-12-27 09:45 | NUR ---
IV SITED TO LEFT HAND AFTER MULTIPLE ATTEMPTS TO LEFT HAND. NO NEEDS NOTED.
--- NOTE | 2016-12-27 11:00 | NUR ---
UP TO BR WITH MIN ASSIST OF ONE. NO STOOL RETURNED. REPOSITIONED IN BED FOR COMFORT. SCD'S IN PLACE AT THIS TIME.
[2016-12-27 12:15] VITALS: BP 148/84
--- NOTE | 2016-12-27 12:15 | NUR ---
LUNCH SERVED IN ROOM. ATE ONLY A FEW BITES. REFUSED OFFER OF ALTERNATIVE.
--- NOTE | 2016-12-27 14:30 | NUR ---
RESTING QUIETLY IN BED. IV TO LEFT HAND IS NON FUNCTIONAL. AFTER SEVERAL ATTEMPTS TO RESITE DR. CUETO NOTIFIED OF DIFFICULTY. NEW ORDERS TO LEAVE IV OUT. PATIENT HAPPY WITH THIS OUTCOME.
[2016-12-27 16:02] VITALS: BP 141/90
--- NOTE | 2016-12-27 16:30 | NUR ---
UP TO BR WITH ONE PERSON ASSIST. NO BM AT THIS TIME.
--- NOTE | 2016-12-27 18:30 | NUR ---
STATED SHE ATE ALL OF HER SUPPER. ATE SUPPER TRAY AND SHE ATE HER SANDWICH FROM LUNCH. DENIES NEEDS. NO CHANGES NOTED.
[2016-12-27 20:00] VITALS: BP 150/84
--- NOTE | 2016-12-27 20:26 | NUR ---
REC'D. EYES CLOSED RESP. DEEP AND EVEN.BED ARMED FOR SAFETY.SOUSA PATENT AND DRAINING CLOUDY YELLOW URINE. WILL CONTINUE TO MONITOR FOR ANY CHGES. AND FOLLOW CURRENT PLAN OF CARE.
[2016-12-28] VITALS (7 sets, daily range): BP systolic 100–165; BP diastolic 51–103
--- NOTE | 2016-12-28 03:01 | NUR ---
ASSESSED, PT IS ASLEEP WITH EASY RESPIRATIONS AND NO SIGNS OF DISTRESS NOTED. SOUSA CATH IS SECURED AND THE BED IS LOW, RAILS UP X'S 2 WITH THE CALL LIGHT AT HAND.
[2016-12-28 05:29] LABS: BASOPHILS 1.1 % (0-2); EOSINOPHILS 1.6 % (0-7); HEMOGLOBIN 11.1 g/dL (12-16); LYMPHOCYTES 12.9 % (15-50); MCH 32.5 pg (26.0-34.0); MCHC 33.6 g/dL (31.0-37.0); MCV 96.5 fL (80.0-100.0); MEAN PLATELET VOLUME 9.4 fL (7.4-10.4); MONOCYTES 23.7 % (2-11); NEUTROPHILS 60.7 % (40-80); PLATELET COUNT 200 10x3/uL (130-400); RBC 3.42 10x6/uL (4.00-5.40); RDW 18.1 % (11.5-14.5)
[2016-12-28 05:31] LABS: WBC 1.9 10x3/uL (4.8-10.8)
[2016-12-28 05:49] LABS: CALC OSMOLALITY 251 mosm/kg (275-300); CALCIUM 8.5 mg/dL (8.5-10.1); CHLORIDE - SERUM 95 mmol/L (98-107); CREATININE - SERUM 0.6 mg/dL (0.6-1.3); GLUCOSE 90 mg/dL (74-106); POTASSIUM - SERUM 4.3 mmol/L (3.5-5.1); SODIUM 127 mmol/L (136-145); UREA NITROGEN 5 mg/dL (7-18); eGFR NON AFRICAN AMERICAN > 90 mL/min (90-120)
--- NOTE | 2016-12-28 07:45 | NUR ---
AWAKE AND ALERT. ORIENTED X3. NO C/O THIS AM. LUNGS HAVE FAINT CRACKLES THROUGHOUT LUNG CHING WITH PRODUCTIVE COUGH NOTED WITH CLEAR SPUTUM. SKIN IS INTACT WITHOUT REDNESS, MULTIPLE BRUISED NOTED TO BODY ESPECIALLY ARMS. SITTING UP IN BED. DENIES NEEDS.
--- NOTE | 2016-12-28 08:55 | NUR ---
REQUESTED AND GIVEN DULCOLAX SUPP FOR C/O CONSTIPATION. WILL MONITOR. SITTING UP IN BED EATING BREAKFAST.
--- NOTE | 2016-12-28 10:00 | NUR ---
UP TO BR WITH ONE PERSON ASSIST. HAD MODERATE AMOUNT OF SOFT FORMED STOOL. LISA CARE PER SELF.
--- NOTE | 2016-12-28 11:00 | NUR ---
UP TO BR AGAIN. HAD SMALL SOFT STOOL. LISA CARE PER SELF.
--- NOTE | 2016-12-28 12:15 | NUR ---
LUNCH SERVED IN ROOM. ATE POORLY. REFUSED OFFER OF ALTERNATIVE MEAL.
--- NOTE | 2016-12-28 13:21 | NUR ---
RD f/u note, Chart Reviewed, Pt noted to be constipated though was releived on 12/28 with BM. Pt noted to have a low wbc, hemo/onc plans were to give nupogen. No skin issues. Consumed 100% of 1500 AHA diet. No changes at this time Plan: continue current diet, continue current plan of care, RD to follow
--- NOTE | 2016-12-28 14:50 | NUR ---
C/O PAIN IN LEGS. REQUESTED AND GIVEN 50MG ULTRAM PO FOR SAME. WILL MONITOR.
--- NOTE | 2016-12-28 16:20 | NUR ---
RESTING QUIETLY WITH EYES CLOSED. DENIES NEEDS.
--- NOTE | 2016-12-28 18:50 | NUR ---
REFUSED TO EAT AT THIS TIME. DENIES NEEDS. NO CHANGES NOTED.
[2016-12-29] VITALS: BP 150/82
--- NOTE | 2016-12-29 02:19 | NUR ---
ASSESSED, PT IS ASLEEP WITH EASY RESPIRATIONS AND NO DISTRESS NOTED. NO O2 IN USE. SHE DOES HAVE A SOUSA CATH IN PLACE. THE BED IS LOW, RAILS UP X'S 2 WITH THE CALL LIGHT AT HAND.
[2016-12-29 03:56] LABS: APPEARANCE HAZY (CLEAR); BACTERIA FEW /hpf (NONE SEEN); BILIRUBIN NEGATIVE (NEGATIVE); COLOR YELLOW (YELLOW); EPITHELIAL CELLS 0-5 /hpf (0-5); GLUCOSE NEGATIVE (NEGATIVE); KETONE NEGATIVE (NEGATIVE); NITRITE NEGATIVE (NEGATIVE); PROTEIN NEGATIVE (NEGATIVE); SPECIFIC GRAVITY 1.015 (1.005-1.020); UROBILINOGEN NORMAL (NORMAL)
[2016-12-29 04:00] VITALS: BP 123/75
[2016-12-29 05:27] LABS: BASOPHILS 0.2 % (0-2); EOSINOPHILS 0.7 % (0-7); HEMATOCRIT 35.5 % (36.0-48.0); IMMATURE GRANULOCYTES 0.4 % (0-5); LYMPHOCYTES 2.9 % (15-50); MCH 32.3 pg (26.0-34.0); MCHC 33.8 g/dL (31.0-37.0); MCV 95.4 fL (80.0-100.0); MEAN PLATELET VOLUME 8.8 fL (7.4-10.4); MONOCYTES 8.3 % (2-11); NEUTROPHILS 87.5 % (40-80); PLATELET COUNT 194 10x3/uL (130-400); RBC 3.72 10x6/uL (4.00-5.40); RDW 17.7 % (11.5-14.5)
[2016-12-29 05:36] LABS: WBC 14.9 10x3/uL (4.8-10.8)
[2016-12-29 05:42] LABS: ALBUMIN 2.9 g/dL (3.4-5.0); ALKALINE PHOSPHATASE 185 U/L (46-116); ALT (SGPT) 24 U/L (10-68); BILIRUBIN - TOTAL 0.31 mg/dL (0.2-1.3); CALC OSMOLALITY 245 mosm/kg (275-300); CALCIUM 8.4 mg/dL (8.5-10.1); CARBON DIOXIDE 22.8 mmol/L (21.0-32.0); CHLORIDE - SERUM 90 mmol/L (98-107); CREATININE - SERUM 0.7 mg/dL (0.6-1.3); GLUCOSE 88 mg/dL (74-106); POTASSIUM - SERUM 3.9 mmol/L (3.5-5.1); PROTEIN - SERUM 6.6 g/dL (6.4-8.2); SODIUM 124 mmol/L (136-145); UREA NITROGEN 5 mg/dL (7-18); eGFR NON AFRICAN AMERICAN 89 mL/min (90-120)
--- NOTE | 2016-12-29 07:35 | NUR ---
PATIENT RECEIVED IN RIGHT LATERAL POSITION RESTING WITH EYES CLOSED. RESPIRATIONS EVEN AND UNLABORED. WAKES EASY. SIDE RAILS UP X2. BED IN LOW POSITION. CALL LIGHT IN REACH.
[2016-12-29 08:40] VITALS: BP 160/95
--- NOTE | 2016-12-29 08:45 | NUR ---
PATIENT IN BED RESTING WITH EYES CLOSED. RESPIRATIONS EVEN AND UNLABORED. WAKES EASY. REPOSITIONED IN BED. SCHEDULED MEDICATION ADMINISTERED. BREAKFAST TRAY SET UP. SIDE RAILS UP X2. BED IN LOW POSITION. CALL LIGHT IN REACH. FAMILY PRESENT.
--- NOTE | 2016-12-29 10:45 | NUR ---
SOUSA CARE PROVIDED. BALLOON DEFLATED. SOUSA CATH D/C WITH TIP INTACT. WELL TOLERATED. WILL CONTINUE TO MONITOR OUTPUT
--- NOTE | 2016-12-29 12:15 | NUR ---
C/O PAIN 12/09. ULTRAM ADMINISTERED PER PRN ORDER. DENIES NEEDS. SIDE RAILS UP X2. BED IN LOW POSITION. CALL LIGHT IN REACH. BED ALARM ON.
[2016-12-29 12:44] VITALS: BP 143/87
--- NOTE | 2016-12-29 14:05 | NUR ---
ALERT IN BED. C/O NAUSEA. ZOFRAN ODT ADMINISTERED PER PRN ORDER. NO FURTHER NEEDS VOICED. SIDE RAILS UP X2. BED IN LOW POSITION. CALL LIGHT IN REACH. BED ALARM ON.
[2016-12-29 16:34] VITALS: BP 153/88
--- NOTE | 2016-12-29 17:30 | NUR ---
ALERT IN BED EATING DINNER. DENIES NEEDS. BED IN LOW POSITION. CALL LIGHT IN REACH. SIDE RAILS UP X2.
[2016-12-29 20:00] VITALS: BP 134/84
[2016-12-30 04:13] VITALS: BP 154/80
--- NOTE | 2016-12-30 04:40 | NUR ---
ASSESSED, PT HAS AN INFREQUENT COUGH WHILE SHE IS SLEEPING BUT RESPIRATIONS ARE EASY. THE FAMILY IS AT THE BEDSIDE ASLEEP. THE BED IS LOW, RAILS UP X'S 2 WITH THE CALL LIGHT AT HAND.
[2016-12-30 05:25] LABS: BASOPHILS 0.1 % (0-2); EOSINOPHILS 1.3 % (0-7); HEMATOCRIT 37.8 % (36.0-48.0); HEMOGLOBIN 12.9 g/dL (12-16); IMMATURE GRANULOCYTES 0.7 % (0-5); LYMPHOCYTES 3.1 % (15-50); MCH 32.1 pg (26.0-34.0); MCHC 34.1 g/dL (31.0-37.0); MONOCYTES 8.6 % (2-11); NEUTROPHILS 86.2 % (40-80); PLATELET COUNT 193 10x3/uL (130-400); RBC 4.02 10x6/uL (4.00-5.40); RDW 16.8 % (11.5-14.5); WBC 17.5 10x3/uL (4.8-10.8)
[2016-12-30 05:33] LABS: CALC OSMOLALITY 244 mosm/kg (275-300); CALCIUM 9.1 mg/dL (8.5-10.1); CARBON DIOXIDE 26.3 mmol/L (21.0-32.0); CHLORIDE - SERUM 88 mmol/L (98-107); CREATININE - SERUM 0.6 mg/dL (0.6-1.3); GLUCOSE 100 mg/dL (74-106); POTASSIUM - SERUM 4.2 mmol/L (3.5-5.1); SODIUM 123 mmol/L (136-145); UREA NITROGEN 5 mg/dL (7-18); eGFR NON AFRICAN AMERICAN > 90 mL/min (90-120)
--- NOTE | 2016-12-30 07:15 | NUR ---
PATIENT RECEIVED IN LEFT LATERAL POSITION RESTING WITH EYES CLOSED. RESPIRATIONS EVEN AND UNLABORED. SIDE RAILS UP X1. BED IN LOW POSITION. CALL LIGHT IN REACH.
[2016-12-30 09:02] VITALS: BP 124/72
--- NOTE | 2016-12-30 09:09 | NUR ---
PATIENT REFUSES TO TAKE MEDICATIONS AT THIS TIME. STATES "COME BACK IN AN HOUR"
--- NOTE | 2016-12-30 09:42 | NUR ---
PATIENT ALERT IN BED SPITTING UP CLEAR SPUTUM. REQUESTING ZOFRAN. MEDICATION GIVEN PER PRN ORDER. BED IN LOW POSITION. CALL LIGHT IN REACH.
--- NOTE | 2016-12-30 10:30 | NUR ---
PATIENT CONTINUES TO REFUSE TO TAKE MEDICATIONS.
[2016-12-30 12:17] VITALS: BP 164/77
--- NOTE | 2016-12-30 13:15 | NUR ---
PATIENT IN MID [place] POSITION RESTING WITH EYES CLOSED. RESPIRATIONS EVEN AND UNLABORED. SIDE RAILS UP X2. BED IN LOW POSITION. CALL LIGHT IN REACH.
--- NOTE | 2016-12-30 16:45 | NUR ---
PATIENT IN MID [place] POSITION RESTING WITH EYES CLOSED. RESPIRATIONS EVEN AND UNLABORED. SIDE RAILS UP X2. BED IN LOW POSITION. CALL LIGHT IN REACH.
[2016-12-30 20:00] VITALS: BP 125/70
--- NOTE | 2016-12-30 22:54 | NUR ---
PATIENT SLEEPING, NO ACUTE DISTRESS. PATIENT LAYING IN RIGHT RECUMBERANT. FAMILY LEFT FOR THE NIGHT. BED IN LOWEST LOCKED POSITION, HOB ELEVATED, x3 BED RAILS UP, CALL LIGHT WITHIN REACH.
[2016-12-31] VITALS: BP 101/60
--- NOTE | 2016-12-31 02:45 | NUR ---
RN NOTE: PT RESTING QUIETLY WITH EYES CLOSED AND EVEN RESPIRATIONS. NO IV. WILL CONTINUE TO MONITOR FOR NEEDS. CALL LIGHT WITHIN REACH.
[2016-12-31 05:01] VITALS: BP 104/52
[2016-12-31 05:42] LABS: BASOPHILS 0.2 % (0-2); EOSINOPHILS 2.1 % (0-7); HEMATOCRIT 33.1 % (36.0-48.0); HEMOGLOBIN 11.5 g/dL (12-16); IMMATURE GRANULOCYTES 0.3 % (0-5); LYMPHOCYTES 4.8 % (15-50); MCH 32.4 pg (26.0-34.0); MCHC 34.7 g/dL (31.0-37.0); MCV 93.2 fL (80.0-100.0); MEAN PLATELET VOLUME 8.7 fL (7.4-10.4); MONOCYTES 12.5 % (2-11); NEUTROPHILS 80.1 % (40-80); PLATELET COUNT 224 10x3/uL (130-400); RBC 3.55 10x6/uL (4.00-5.40)
[2016-12-31 05:47] LABS: WBC 10.7 10x3/uL (4.8-10.8)
[2016-12-31 05:54] LABS: CALC OSMOLALITY 249 mosm/kg (275-300); CALCIUM 8.6 mg/dL (8.5-10.1); CARBON DIOXIDE 25.6 mmol/L (21.0-32.0); CHLORIDE - SERUM 93 mmol/L (98-107); CREATININE - SERUM 0.7 mg/dL (0.6-1.3); GLUCOSE 98 mg/dL (74-106); SODIUM 125 mmol/L (136-145); UREA NITROGEN 6 mg/dL (7-18); eGFR NON AFRICAN AMERICAN 89 mL/min (90-120)
--- NOTE | 2016-12-31 07:45 | NUR ---
PT ASSESSMENT COMPLETE AROUSES TO VERBAL STIMULI ALL ADLS PER STAFF STAND BY ASSIST. VOICES ALL NEEDS TO STAFF CALL LIGHT IN REACH SIDE RAILS UP X 2. DENIES PAIN OR DISCOMFORT AT THIS TIME.
[2016-12-31 08:35] VITALS: BP 111/64
[2016-12-31 11:38] VITALS: BP 122/71
[2016-12-31 12:13] LABS: ANA REFLEX - DIRECT Negative (Negative)
[2016-12-31 15:45] VITALS: BP 127/73
--- NOTE | 2016-12-31 16:40 | NUR ---
PT SITTING UP IN BED WITH NO ACUTE DISTRESS NOTED VOICES ALL NEEDS OT STAFF. CALL LIGHT INREACH SIDE RAILS UP X 2
[2016-12-31 22:27] VITALS: BP 159/71
--- NOTE | 2016-12-31 23:11 | NUR ---
SPOKE TO IGOR, ORDERED LANCE PEARLES 100MG TID AND DUONEB Q4, PUT ORDERS IN
[2017-01-01] VITALS: BP 144/72
--- NOTE | 2017-01-01 02:00 | NUR ---
PT IN BED WITH NO DISTRESS. RESPIRATIONS EVEN AND UNLABORED. SIDE RAILS X 2. BED IS LOW. CALL LIGHT WITHIN REACH.
[2017-01-01 04:00] VITALS: BP 137/69
[2017-01-01 06:16] LABS: BASOPHILS 0.4 % (0-2); HEMATOCRIT 35.5 % (36.0-48.0); IMMATURE GRANULOCYTES 0.2 % (0-5); LYMPHOCYTES 14.5 % (15-50); MCH 31.9 pg (26.0-34.0); MCHC 33.8 g/dL (31.0-37.0); MCV 94.4 fL (80.0-100.0); MEAN PLATELET VOLUME 8.8 fL (7.4-10.4); MONOCYTES 15.5 % (2-11); NEUTROPHILS 65.4 % (40-80); PLATELET COUNT 239 10x3/uL (130-400); RBC 3.76 10x6/uL (4.00-5.40); RDW 17.3 % (11.5-14.5)
[2017-01-01 06:29] LABS: ALBUMIN 2.8 g/dL (3.4-5.0); ALKALINE PHOSPHATASE 172 U/L (46-116); ALT (SGPT) 21 U/L (10-68); CALC OSMOLALITY 251 mosm/kg (275-300); CALCIUM 8.7 mg/dL (8.5-10.1); CHLORIDE - SERUM 95 mmol/L (98-107); CREATININE - SERUM 0.7 mg/dL (0.6-1.3); GLUCOSE 85 mg/dL (74-106); POTASSIUM - SERUM 4.1 mmol/L (3.5-5.1); PROTEIN - SERUM 6.3 g/dL (6.4-8.2); SODIUM 127 mmol/L (136-145); UREA NITROGEN 6 mg/dL (7-18); eGFR NON AFRICAN AMERICAN 89 mL/min (90-120)
--- NOTE | 2017-01-01 07:45 | NUR ---
PT ASSESSMENT COMPLETE AWAKE AND ALERT ORIENTED X 3 LUNGS WITH WHEEZING NOTED TO UPPER LOBES BILATERAL CLEARS WITH COUGH HRRR NO DISTRESS NOTED NO IV SITE NOTED CALL LIGHT IN REACH SIDE RAILS UP X 2
[2017-01-01 08:34] VITALS: BP 120/77
--- NOTE | 2017-01-01 11:00 | NUR ---
PT SITTING UP IN BED NO DISTRESS NOTED VOICES ALL NEEDS TO STAFF CALL LIGHT IN REACH
[2017-01-01 11:18] LABS: HEPATITIS C ANTIBODY 0.1 (0.0-0.9)
[2017-01-01 11:45] VITALS: BP 120/77
[2017-01-01] MEDS ORDERED: LAMICTAL100 MG PO (13:50)
[2017-01-01] MEDS ORDERED: FLORAJEN3 CAPS460 MG PO (13:51)
[2017-01-01] MEDS ORDERED: TESSALON PERLE100 MG PO (13:51)
--- NOTE | 2017-01-01 14:15 | NUR ---
SPOKE WITH JONNIE AT DR RIVERS'S OFFICE REGARDING D/C ORDER AND FOLLOW UP APPT. STATES SHE WILL SPEAK WITH HIM AND CALLBACK. WILL AWAIT CALLBACK
--- NOTE | 2017-01-01 14:30 | NUR ---
CM met with patient again about discharge planning, she is refusing Home Health, states her son and her ex are at home for help. Ex will be the one to take her home.
--- NOTE | 2017-01-01 15:08 | NUR ---
patient has changed her mind and would like set up. Patient picked [facility] , SAURABH signed referral made and spoke with Maikel at [facility]
--- NOTE | 2017-01-01 16:00 | NUR ---
PT DISCHARGE ISTRUCTIONS GIVEN AND UNDERSTANDING EXPRESSED LEFT VIA WHEELCHAIR TO PRIVATE CAR WITH SPOUSE
[2017-01-01 16:07] VITALS: BP 129/78
== END 2017-01-01 18:31 | disposition home health service (06) | DRG 640 ==
LOC: D.ER 16:25 → D.MS 18:38
PROVIDERS: Emergency Medicine; Family Medicine; Internal Medicine Hematology & Oncology; Physician Assistant; ADMIT Family Medicine
DX: E87.1 Hypo-osmolality and hyponatremia (principal); G93.41 Metabolic encephalopathy; D61.818 Other pancytopenia; N39.0 Urinary tract infection, site not specified; G40.909 Epilepsy, unspecified, not intractable, without status epilepticus; E16.2 Hypoglycemia, unspecified; E87.6 Hypokalemia; K59.00 Constipation, unspecified; M79.605 Pain in left leg; M79.604 Pain in right leg

== ENCOUNTER 2017-02-26 14:57 | Inpatient (IN) | payer MEDICARE ==
[~2017-02-26] VITALS: Ht 152.4 cm; Wt 50.5 kg
[~2017-02-26 14:57] MED LIST changes: +FLORAJEN3 CAPS460 MG PO; +GABAPENTIN100 MG PO; +LAMICTAL100 MG PO; +PRINIVIL10 MG PO; +TESSALON PERLE100 MG PO
[2017-02-26 15:45] LABS: BASOPHILS 0.5 % (0-2); EOSINOPHILS 2.4 % (0-7); HEMATOCRIT 29.9 % (36.0-48.0); HEMOGLOBIN 9.9 g/dL (12-16); IMMATURE GRANULOCYTES 0.3 % (0-5); LYMPHOCYTES 16.6 % (15-50); MCH 32.1 pg (26.0-34.0); MCHC 33.1 g/dL (31.0-37.0); MCV 97.1 fL (80.0-100.0); MONOCYTES 12.8 % (2-11); NEUTROPHILS 67.4 % (40-80); PLATELET COUNT 232 10x3/uL (130-400); RBC 3.08 10x6/uL (4.00-5.40); RDW 14.9 % (11.5-14.5); WBC 5.8 10x3/uL (4.8-10.8)
[2017-02-26 16:02] LABS: ALBUMIN 2.8 g/dL (3.4-5.0); ALKALINE PHOSPHATASE 128 U/L (46-116); ALT (SGPT) 14 U/L (10-68); BILIRUBIN - TOTAL 0.62 mg/dL (0.2-1.3); CALC OSMOLALITY 241 mosm/kg (275-300); CALCIUM 7.8 mg/dL (8.5-10.1); CARBON DIOXIDE 21.9 mmol/L (21.0-32.0); CHLORIDE - SERUM 89 mmol/L (98-107); CREATININE - SERUM 0.6 mg/dL (0.6-1.3); GLUCOSE 98 mg/dL (74-106); POTASSIUM - SERUM 4.3 mmol/L (3.5-5.1); PROTEIN - SERUM 5.7 g/dL (6.4-8.2); SODIUM 121 mmol/L (136-145); UREA NITROGEN 8 mg/dL (7-18); eGFR NON AFRICAN AMERICAN > 90 mL/min (90-120)
--- NOTE | 2017-02-26 21:58 | NUR ---
PT RECEIVED VIA WHEELCHAIR, AWAKE, ALERT, IS A POOR HISTORIAN WITH HER MEDICATIONS AND HEALTH HX. PT IS SLOW TO ANSWER, FLAT AFFECT, AND EASILY AGITATED. PT STATES HER SON HAS HER INFORMATION, HOWEVER, THERE IS NO FAMILY OR FRIEND PRESENT AT THIS TIME. PT IS ASKING FOR PAIN MEDICATION, STATES HER RIGHT HIP IS HURTING. WILL CONTINUE TO ASSESS AND MONITOR PT CLOSELY. PT IS CURRENTLY IN BED, HOB 35 DEGREES, SIDE RAILS X 2, BED LOW, BED ALARM ON.
--- NOTE | 2017-02-26 23:58 | NUR ---
PT DEMONSTRATES GREAT ANXIETY AND IS ASKING FOR A "NERVE" PILL, STATING SHE TAKES THEM REGULARLY. PT HAS ALSO CALLED AND ASKED FOR PAIN MEDICATION SEVERAL TIMES SINCE BEING ADMITTED. I HAVE EXPLAINED TO PT THAT DUE TO HER LOW B/P AND AMS, INCREASED WEAKNESS, AND MILD CONFUSION THAT WE CANNOT ADMINISTER ANY NARCOTICS AT THIS TIME. I OFFERED TO CALL AND GET A TYLENOL, IN WHICH PT STATED THAT TYLENOL DOES NOT HELP AT ALL. I HAVE ASKED PT TO CALL WHEN NEEDING ANY ASSISTANCE, HOWEVER, PT CONTINUES TO AMBULATE WITHOUT CALLING FIRST. PT HAS A PIV TO HER RT FOOT PLACED BY EMS PRIOR TO ARRIVAL HERE, AND HAS NS RUNNING ORDERED. BED ALARM IS ON. PT IS VERY POOR HISTORIAN AND CANNOT ANSWER ANY QUESTIONS ABOUT HER MEDICATIONS OTHER THAN SHE STATED SHE HAS NOT HAD ANY OF THEM IN 1 1/2 WEEKS. I ASKED PT WHY SHE WAS TAKING METRODINAZOLE, AND HER RESPONSE WAS BECAUSE HER DRMaddie PRESCRIBED IT. I ASKED PT ABOUT HAVING DIARRHEA, IN WHICH SHE STATES SHE HAS ALL THE TIME, HOWEVER, HAS VOID X 2 SINCE BEING HERE, BUT NO BM. I HAVE GIVEN PT A LEMON MENOMINEE SODA TO HELP CALM PTS STOMACH. NO OTHER NEEDS AT THIS TIME. PT IS CURRENTLY LYING IN BED, HOB 35 DEGREES, BED LOW, CALL LIGHT IN REACH, SIDE RAILS X 2, BED ALARM ON. I HAVE DEMONSTRATED TO PT 4 TIMES HOW TO USE HER CALL LIGHT AND WHEN TO USE HER CALL LIGHT. PT REMAINS CONFUSED TO HOW TO CHANGE THE CHANNELS AND ADJUST THE VOLUME, AND PT TRIES TO USE THE BEDSIDE CONTROLS TO CALL FOR THE NURSE. WILL CONTINUE TO REORIENT AND MONITOR CLOSELY.
[2017-02-27] VITALS (7 sets, daily range): BP systolic 95–149; BP diastolic 52–82; Ht 152.4 cm; Wt 50.5 kg
--- NOTE | 2017-02-27 06:06 | NUR ---
PT HAS CALLED FREQUENTLY THIS SHIFT, SOMETIMES MULTIPLE TIMES WITHIN JUST A FEW MINUTES OF ONE ANOTHER, ASKING FOR PAIN MEDICATION. PT HAS ALSO DISCONNECTED HER IV TUBING FROM THE PIV IN HER RT FOOT X 2. I HAVE LEFT IT UNHOOKED AT THIS TIME. PT REFUSES TO BE COMPLIANT. I HAVE ORIENTED AND REORIENTED PT MULTIPLE TIMES THIS SHIFT. CONTINUE TO MONITOR.
[2017-02-27 09:12] LABS: HEMATOCRIT 28.9 % (36.0-48.0); HEMOGLOBIN 9.9 g/dL (12-16); MCH 32.8 pg (26.0-34.0); MCHC 34.3 g/dL (31.0-37.0); MCV 95.7 fL (80.0-100.0); MEAN PLATELET VOLUME 9.2 fL (7.4-10.4); PLATELET COUNT 262 10x3/uL (130-400); RBC 3.02 10x6/uL (4.00-5.40); RDW 14.5 % (11.5-14.5)
[2017-02-27 09:13] LABS: WBC 2.4 10x3/uL (4.8-10.8)
[2017-02-27 09:34] LABS: BASOPHILS 1 % (0-2); EOSINOPHILS 1 % (0-7); LYMPHOCYTES 24 % (15-50); MONOCYTES 10 % (2-11); NEUTROPHILS 61 % (40-80); PLATELET ESTIMATE NORMAL
[2017-02-27 09:37] LABS: ALBUMIN 2.9 g/dL (3.4-5.0); ALKALINE PHOSPHATASE 156 U/L (46-116); ALT (SGPT) 17 U/L (10-68); BILIRUBIN - TOTAL 0.32 mg/dL (0.2-1.3); CALCIUM 7.9 mg/dL (8.5-10.1); CARBON DIOXIDE 22.9 mmol/L (21.0-32.0); CHLORIDE - SERUM 97 mmol/L (98-107); CKMB 0.7 U/L (0.0-3.6); CREATINE KINASE 63 UL (21-215); CREATININE - SERUM 0.6 mg/dL (0.6-1.3); GLUCOSE 115 mg/dL (74-106); MAGNESIUM - SERUM 1.7 mg/dL (1.8-2.4); PROTEIN - SERUM 6.2 g/dL (6.4-8.2); SODIUM 130 mmol/L (136-145); eGFR NON AFRICAN AMERICAN > 90 mL/min (90-120)
[2017-02-27 09:52] LABS: CALC OSMOLALITY 258 mosm/kg (275-300); POTASSIUM - SERUM 3.5 mmol/L (3.5-5.1); TROPONIN-I < 0.017 ng/mL (0.000-0.060); UREA NITROGEN 4 mg/dL (7-18)
--- NOTE | 2017-02-27 10:18 | NUR ---
Rehab Prescreening Consult recieved and the chart has been reviewed. She is a new admit and has orders pending with cardiology and PT. Rehab will follow her to determine whether she has a qualifying IRF diagnosis. discussed with the CM Wil Marte. Bria Teague RN Clinical Liaison, Rehab
[2017-02-27 15:49] LABS: CKMB 0.6 U/L (0.0-3.6); CREATINE KINASE 68 UL (21-215); TROPONIN-I < 0.017 ng/mL (0.000-0.060)
--- NOTE | 2017-02-27 19:58 | NUR ---
PT AWAKE, ALERT, ASKING FOR A DIET LEMON PAUMA SODA. NO OTHER NEEDS AT THIS TIME. CONTINUE TO MONITOR CLOSELY. BED LOW, CALL LIGHT IN REACH, SIDE RAILS X 2, HOB 30 DEGREES, BED ALARM ON, PT HAS AN IV IN RT FOOT INFUSING NS AT THIS TIME.
[2017-02-27 21:53] LABS: CKMB 0.7 U/L (0.0-3.6); CREATINE KINASE 62 UL (21-215)
[2017-02-27 21:55] LABS: TROPONIN-I < 0.017 ng/mL (0.000-0.060)
--- NOTE | 2017-02-27 22:55 | NUR ---
PT DISCONNECTED HER IV TUBING AGAIN FROM HER RT FOOT PIV TO AMBULATE TO BATHROOM, AND THEN PLACED THE DISCONNECTED TUBING IN HER BEDPAN AFTER BEING USED EARLIER IN THIS SHIFT. I HAVE REPLACED THE NS AND IV TUBING AND HAVE AGAIN REMINDED PT NOT TO DISCONNECT HER IV TUBING, BUT TO ALWAYS CALL FIRST FOR ASSISTANCE. PT IS CURRENTLY RESTING COMFORTABLY AFTER BEING ASSISTED BACK TO BED. NO NEEDS AT THIS TIME. CONTINUE TO MONITOR CLOSELY. BED LOW, CALL LIGHT IN REACH, SIDE RAILS X 2, HOB 20 DEGREES.
[2017-02-28 02:21] VITALS: BP 140/82
[2017-02-28 05:02] LABS: BASOPHILS 0.4 % (0-2); EOSINOPHILS 2.1 % (0-7); HEMATOCRIT 32.7 % (36.0-48.0); LYMPHOCYTES 8.9 % (15-50); MCH 32.5 pg (26.0-34.0); MCHC 33.6 g/dL (31.0-37.0); MCV 96.7 fL (80.0-100.0); MEAN PLATELET VOLUME 9.5 fL (7.4-10.4); MONOCYTES 3.9 % (2-11); NEUTROPHILS 84.7 % (40-80); PLATELET COUNT 309 10x3/uL (130-400); RBC 3.38 10x6/uL (4.00-5.40); RDW 14.7 % (11.5-14.5); WBC 2.8 10x3/uL (4.8-10.8)
[2017-02-28 05:22] LABS: ALBUMIN 3.1 g/dL (3.4-5.0); ALKALINE PHOSPHATASE 154 U/L (46-116); ALT (SGPT) 20 U/L (10-68); BILIRUBIN - TOTAL 0.27 mg/dL (0.2-1.3); CALC OSMOLALITY 261 mosm/kg (275-300); CALCIUM 8.2 mg/dL (8.5-10.1); CHLORIDE - SERUM 98 mmol/L (98-107); GLUCOSE 96 mg/dL (74-106); PROTEIN - SERUM 6.7 g/dL (6.4-8.2); SODIUM 132 mmol/L (136-145); UREA NITROGEN 4 mg/dL (7-18)
[2017-02-28 05:34] LABS: CREATININE - SERUM 0.8 mg/dL (0.6-1.3); eGFR NON AFRICAN AMERICAN 76 mL/min (90-120)
[2017-02-28 05:36] LABS: POTASSIUM - SERUM 2.9 mmol/L (3.5-5.1)
[2017-02-28 06:19] VITALS: BP 148/82
[2017-02-28 07:42] VITALS: BP 145/77
--- NOTE | 2017-02-28 11:50 | NUR ---
TELEMETRY SR. REFUSES PT AFTER AMBULATING HALLWAY WITH . CALL LIGHT IN REACH. WILL MONITOR NEEDS.
--- NOTE | 2017-02-28 11:54 | NUR ---
REFUSES LAB DRAW.
--- NOTE | 2017-02-28 11:58 | NUR ---
DR. STEVENS NOTIFIED OF REFUSING LAB DRAW.
[2017-02-28 12:00] VITALS: BP 118/72
--- NOTE | 2017-02-28 14:09 | NUR ---
IV AND TELEMETRY DCD. DC PLANS GIVEN. UNDERSTANDING VOICED. ESCORTED TO CAR BY W/C.
--- NOTE | 2017-03-01 09:29 | NUR ---
Patient Name: ABIODUN VOSS Admission Status: ER Accout number: [id number] Admission Date: 02-26-2017 : 1950 Admission Diagnosis: Attending: TIM STEVENS Current LOS: 2 Anticipated DC Date: 02-28-2017 Planned Disposition: Home Primary Insurance: MEDICARE A & B LATE ENTRY: Discharge Planning Comments: * Is the patient Alert and Oriented? Yes 0 * How many steps to enter\exit or inside your home? NONE 0 * PCP DR. RAINEY 0 * Pharmacy [facility] 0 * Preadmission Environment Home with Family 0 * ADLs Independent 0 * Equipment Back Brace 0 * Other Equipment NO MEDICAL EQUIOPMENT PROVIDER PREFERNCE 0 * List name and contact numbers for known caregivers / representatives who currently or will assist patient after discharge: LESA VOSS, EX SPOUSE, 0 * Community resources currently utilized None 0 * Please name any agencies selected above. NONE 0 * Additional services required to return to the preadmission environment? No 0 * Can the patient safely return to the preadmission environment? Yes 0 * Has this patient been hospitalized within the prior 30 days at any hospital? No 0 CM MET WITH PT IN ROOM TO DISCUSS DISCHARGE PLANNING AND NEEDS. PT REPORTS LIVING AT HOME INDEPENDENTLY WITH HER EX SPOUSE. PT HAS BEDSIDE COMMODE THAT SHE IS NOT USING NOW WITH NO MEDICAL EQUIPMENT PROVIDER PREFERENCE. PT HAS NO OUTSIDE SERVICES ASSISTING IN THE HOME. CM DISCUSSED AVAILABILITY OF HOME HEALTH, REHAB SERVICES AND MEDICAL EQUIPMENT. PT DENIES DISCHARGE NEEDS, REPORTS HER EX SPOUSE WILL PICK HER UP FOR DISCHARGE HOME TODAY. Corporate Driver: Juan Marte
--- NOTE | 2017-03-12 12:14 | EC ---
PATIENT:ABIODUN VOSS DATE OF SERVICE: 02/26/17 SEX: F MEDICAL RECORD: [id number] DATE OF : [birth year] LOCATION:D. D.211 AGE OF PATIENT: 66 ADMISSION DATE: 02/26/17 REFERRING PHYSICIAN: INTERPRETING PHYSICIAN: BURKE ESCOBAR MD ECHOCARDIOGRAM REPORT ECHO CHARGES 4 ECHO COMPLETE CLINICAL DIAGNOSIS: ECHOCARDIOGRAPHIC MEASUREMENTS (adult normal given) AC root (d.<3.7cm) 2.4 cm LV Septum d (<1.2 cm> 1.0 cm Valve Excursion 1.6 cm LV Septum (systole) 1.6 cm Left Atria (s.<4.0cm> 2.4 cm LVPW d(<1.2cm) 0.9 cm RV (d.<2.3cm) 2.3 cm LVPW (sytole) 1.4 cm LV diastole(<5.6CM) 4.7 cm MV E-F(>70mm/sec) cm LV systole 2.9 cm LVOT Diameter 1.7 cm MV exc.(>10mm) cm Est.ejection fraction (50-75%) % Pericardial Effusion N DOPPLER: LVIT cm/sec A 124 cm/sec E 85.0 cm/sec LA cm/sec RVSP 30.0 mmHg LVOT 180 cm/sec AOP1/2T m/s Asc. Ao 216 cm/sec RVOT 107 cm/sec RA cm/sec PA 161 cm/sec AV Gradient Peak 19.0 mmHg AV Mean 12.0 mmHg AV Area 1.8 cm MV Gradient Peak 9.0 mmHg MV Mean 2.8 mmHg MV Area cm COMMENTS: Machine Cell Tuber: Aarti THOMASOE Zanjero: 1 Dr. Escobar TAPE# PACS DATE OF SERVICE: 02/27/2017 DATE OF SERVICE: 02/27/2017 ECHOCARDIOGRAM FINDINGS: 1. Left ventricular chamber size is within normal limits. Left ventricular systolic function is normal. Overall ejection fraction estimated at 65%. 2. Left atrium, right atrium, and right ventricle chamber sizes are within ECHOCARDIOGRAM REPORT [id number] ABIODUN VOSS normal limits. 3. Valvular structures have normal structure and motion. 4. Doppler interrogation only reveals trace tricuspid regurgitation, no other valvular insufficiency or stenosis and pulmonary systolic pressure is normal estimated at 30 mmHg. 5. No evidence of pericardial effusion or left ventricular thrombus. TRANSINT:[id number] Voice Confirmation ID: [id number] DOCUMENT ID: [id number] BURKE ESCOBAR MD at 1214 CC: [id number] DICTATION DATE: 02/28/17 1240 DRIVER/SALES WORKERS: 02/28/17 1456 DIS IN 02/28/17 [facility] [address] [place] [id number]
--- NOTE | 2017-03-12 12:14 | CN ---
PATIENT NAME:ABIODUN VOSS MEDICAL RECORD: [id number] : [birth year] LOCATION:D. D.2118 ADMIT DATE: 02/26/17 ACCOUNT: [id number] CONSULTING PHYSICIAN: BURKE HELTON MD REFERRING PHYSICIAN: TIM STEVENS DO DATE OF CONSULTATION: 02/27/2017 CARDIOLOGY CONSULT DIAGNOSES: 1. Chest pain. 2. ETOH abuse. 3. Syncope. 4. Hypotension. 5. Chronic pain syndrome. 6. Chronic anxiety. HISTORY: Mrs. Voss has multiple medical problems. She does have a history of coronary disease and states that she had a myocardial infarction a number of years ago. She has been having chest pain, some very atypical components to the pain, sharp and stabbing type of pain, positional in nature. She had an episode where she had near syncope while sitting on her bed and possibly passed out going into the bathroom. She was quite hypotensive here. Her hemoglobin is low at 9.9. She was previously on atenolol and Prinivil. Her systolic blood pressure is 100 at this time. She is continued on the lisinopril, but the atenolol has been discontinued. She is quite tachycardic in 100 to 110 range. Her systolic blood pressure now is in the 149 range. EKG is with no changes. PHYSICAL EXAMINATION: GENERAL APPEARANCE: Well-nourished, well-developed, appears stated age. Level of distress, comfortable. PSYCHIATRIC: Mental status, alert, normal affect. Orientation, oriented to time, place and person. EYES: Lids and conjunctiva, noninjected. No discharge, no pallor. ENT: Lips, teeth, gums, normal dentition. Oropharynx, no cyanosis, no pallor. NECK: Carotid arteries, bilateral normal upstroke, no bruits, no thrills. JUGULAR VEINS: No jugular venous pressure or distention. CERVICAL LYMPH NODES: Nontender, nonenlarged. THYROID: Not enlarged. Nontender. No nodules. LUNGS: Respiratory effort, unlabored. CHEST: Normal curvature. No thoracic deformity. No chest wall tenderness. Percussion, resonant. Auscultation, clear. No wheezes, no rales, no rhonchi. CARDIOVASCULAR: Precordial exam, nondisplaced. No heaves or pericardial thrills. Rate and rhythm, regular. Heart sounds, normal S1, normal S2. No S3, no gallop, no rub. Systolic murmur, not heard. Diastolic murmur, not heard. EXTREMITIES: No cyanosis, no edema. Peripheral pulses, full and equal in all extremities, except as noted. No bruits appreciated. ABDOMEN: Soft, nondistended. Normal aorta. No bruit. Nontender. No masses. Liver, nontender, no hepatomegaly. Spleen, nontender, no splenomegaly. MUSCULOSKELETAL: No joint tenderness. No joint swelling. No erythema. NEUROLOGICAL: Normal gait, normal strength, normal tone. SKIN: Warm and dry. Her chest pain has many atypical components. It is difficult to say as she has quite an ETOH history as well and it very well may be GI in etiology. Her CONSULT REPORT [id number] ABIODUN VOSS troponin is normal. She has not had any further chest pain since she has been in here. I would favor a medical therapy versus an invasive workup. We will discontinue the lisinopril and restart the atenolol, this will be better from the standpoint of heart rate and blood pressure. She is on Plavix, would continue that. At this point, we will get an echocardiogram. No other cardiac workup or treatment is necessary. TRANSINT:[id number] Voice Confirmation ID: [id number] DOCUMENT ID: [id number] BURKE HELTON MD at 1214 CC: [id number] DICTATION DATE: 02/27/17 1007 CRITICAL CARE PHYSICIAN: 02/27/17 1306 DIS IN 02/28/[address] [address]
== END 2017-02-28 14:10 | disposition home or self-care (01) | DRG 314 ==
LOC: OBSVTIME → D.ER 14:57 → D.M2 20:45 → D.ER 20:54 → D.M2 20:54 → OBSVTIME 20:54 → D.M2 20:55
PROVIDERS: Emergency Medicine; ADMIT Family Medicine
DX: I95.9 Hypotension, unspecified (principal); E43 Unspecified severe protein-calorie malnutrition; E87.1 Hypo-osmolality and hyponatremia; F10.10 Alcohol abuse, uncomplicated; R55 Syncope and collapse; F41.9 Anxiety disorder, unspecified; D64.9 Anemia, unspecified; Z86.73 Personal history of transient ischemic attack (TIA), and cerebral infarction without residual deficits; J44.9 Chronic obstructive pulmonary disease, unspecified; K21.9 Gastro-esophageal reflux disease without esophagitis; Y90.0 Blood alcohol level of less than 20 mg/100 ml; Z68.22 Body mass index [BMI] 22.0-22.9, adult

== ENCOUNTER 2017-03-25 21:22 | Observation (INO) | payer MEDICARE ==
[~2017-03-25] VITALS: Ht 152.4 cm; Wt 55.1 kg
--- NOTE | ~2017-03-25 | DS ---
PATIENT:ABIODUN VOSS :[birth year] MEDICAL RECORD: [id number] DISCHARGE SUMMARY ADMISSION DATE: 03/26/17 DISCHARGE DATE: 03/27/17 This is a discharge dated 03/27/2017 from the inpatient hospital. DISCHARGE DIAGNOSES: 1. Altered mental status. 2. Syncope. 3. History of cerebrovascular accident. 4. Seizure disorder. 5. Hypertension. 6. Anemia. 7. Pancytopenia. 8. Cirrhosis. 9. ETOH abuse. 10. Chronic obstructive pulmonary disease. 11. Coronary artery disease. 12. Depression/anxiety. CONSULTS THIS HOSPITALIZATION: Hem-onc with Dr. Michelle. HOSPITAL COURSE: Full H&P is located elsewhere on the chart on this 66-year-old female admitted med on-call after a syncopal episode. CT head was without acute findings. She was started on IV fluids for hydration. Dr. Michelle was consulted. Electrolytes were managed by protocol. She was hemodynamically stable without further syncopal episodes and mental status was at baseline. She was considered stable for discharge on 03/27/2017. DISCHARGE MEDICATIONS: As per discharge medication reconciliation. DISCHARGE DISPOSITION: The patient is discharged home. She will continue her current diet and level of activity and will follow up with primary care in 1 week. At least 30 minutes was spent in this discharge activity. TRANSINT:[id number] Voice Confirmation ID: [id number] DOCUMENT ID: [id number] Dictated By: JOEL JASSO I have interviewed/examined the above patient and agree with these documented findings. JOAO VIDAL MD at 1459 at 1459 CC: [id number] DICTATION DATE: 04/28/17 1357 BOOKMOBILE LIBRARIAN: 04/29/17 0944 DIS IN 03/27/[address] [facility] [address] [place] [address]
[2017-03-25 22:27] LABS: BASOPHILS 0.8 % (0-2); EOSINOPHILS 9.2 % (0-7); HEMATOCRIT 27.9 % (36.0-48.0); HEMOGLOBIN 9.5 g/dL (12-16); LYMPHOCYTES 31.1 % (15-50); MCH 33.1 pg (26.0-34.0); MCHC 34.1 g/dL (31.0-37.0); MCV 97.2 fL (80.0-100.0); MEAN PLATELET VOLUME 8.5 fL (7.4-10.4); MONOCYTES 21.9 % (2-11); RBC 2.87 10x6/uL (4.00-5.40); RDW 14.2 % (11.5-14.5); WBC 2.5 10x3/uL (4.8-10.8)
[2017-03-25 22:28] LABS: PLATELET COUNT 233 10x3/uL (130-400)
[2017-03-25 22:39] LABS: ALBUMIN 2.6 g/dL (3.4-5.0); ALKALINE PHOSPHATASE 136 U/L (46-116); ALT (SGPT) 23 U/L (10-68); CALC OSMOLALITY 263 mosm/kg (275-300); CALCIUM 7.6 mg/dL (8.5-10.1); CARBON DIOXIDE 26.7 mmol/L (21.0-32.0); CHLORIDE - SERUM 100 mmol/L (98-107); CREATININE - SERUM 0.9 mg/dL (0.6-1.3); GLUCOSE 73 mg/dL (74-106); POTASSIUM - SERUM 3.4 mmol/L (3.5-5.1); PROTEIN - SERUM 5.5 g/dL (6.4-8.2); SODIUM 134 mmol/L (136-145); UREA NITROGEN 5 mg/dL (7-18); eGFR NON AFRICAN AMERICAN 67 mL/min (90-120)
[2017-03-25 22:41] LABS: APPEARANCE CLEAR (CLEAR); BILIRUBIN NEGATIVE (NEGATIVE); COLOR YELLOW (YELLOW); GLUCOSE NEGATIVE (NEGATIVE); KETONE NEGATIVE (NEGATIVE); NITRITE NEGATIVE (NEGATIVE); PROTEIN NEGATIVE (NEGATIVE); SPECIFIC GRAVITY 1.015 (1.005-1.020); UROBILINOGEN NORMAL (NORMAL)
[2017-03-25 22:43] LABS: UDS - AMPHET NEGATIVE QUAL (NEGATIVE); UDS - BARB NEGATIVE QUAL (NEGATIVE); UDS - BENZO POSITIVE QUAL (NEGATIVE); UDS - COCAINE NEGATIVE QUAL (NEGATIVE); UDS - OPIATE NEGATIVE QUAL (NEGATIVE); UDS - PCP NEGATIVE QUAL (NEGATIVE); UDS - THC NEGATIVE QUAL (NEGATIVE)
[2017-03-25 22:50] LABS: CREATINE KINASE 29 UL (21-215); LIPASE 181 U/L (73-393); PHENYTOIN (DILANTIN) 5.4 ug/mL (10.0-20.0); PRO BNP 336 pg/mL (0-125); THYROID STIMULATING HORMONE 3.97 uIU/mL (0.36-3.74)
[2017-03-25 22:51] LABS: TROPONIN-I < 0.017 ng/mL (0.000-0.060)
[2017-03-26] VITALS (7 sets, daily range): BP systolic 98–151; BP diastolic 53–95; Ht 152.4 cm; Wt 55.1 kg
[2017-03-26] MEDS ORDERED: TRAZODONE HCL50 MG PO (05:22)
[2017-03-26] MEDS ORDERED: PRINIVIL10 MG PO (05:23)
[2017-03-26] MEDS ORDERED: DILANTIN100 MG PO (05:24)
[2017-03-26] MEDS ORDERED: ULTRAM50 MG PO (05:24)
[2017-03-26 06:06] LABS: BASOPHILS 0.6 % (0-2); EOSINOPHILS 7.8 % (0-7); HEMATOCRIT 28.9 % (36.0-48.0); HEMOGLOBIN 9.8 g/dL (12-16); LYMPHOCYTES 32.7 % (15-50); MCH 32.9 pg (26.0-34.0); MCHC 33.9 g/dL (31.0-37.0); MEAN PLATELET VOLUME 8.9 fL (7.4-10.4); MONOCYTES 17.6 % (2-11); NEUTROPHILS 41.3 % (40-80); PLATELET COUNT 266 10x3/uL (130-400); RBC 2.98 10x6/uL (4.00-5.40); RDW 14.4 % (11.5-14.5)
[2017-03-26 06:15] LABS: WBC 3.6 10x3/uL (4.8-10.8)
[2017-03-26 12:43] LABS: % SATURATION 17 % (15-55); IRON 41 ug/dl (35-150); TOTAL IRON BIND CAPACITY 230 ug/dl (260-445); UNSAT IRON BIND CAPACITY 189 ug/dl (150-375)
[2017-03-27 01:13] VITALS: BP 152/97
[2017-03-27 04:59] LABS: BASOPHILS 0.9 % (0-2); EOSINOPHILS 6.1 % (0-7); HEMATOCRIT 30.5 % (36.0-48.0); HEMOGLOBIN 10.3 g/dL (12-16); IMMATURE GRANULOCYTES 0.2 % (0-5); LYMPHOCYTES 22.7 % (15-50); MCH 32.8 pg (26.0-34.0); MCHC 33.8 g/dL (31.0-37.0); MCV 97.1 fL (80.0-100.0); MEAN PLATELET VOLUME 8.8 fL (7.4-10.4); MONOCYTES 11.7 % (2-11); NEUTROPHILS 58.4 % (40-80); PLATELET COUNT 281 10x3/uL (130-400); RBC 3.14 10x6/uL (4.00-5.40); RDW 14.4 % (11.5-14.5); WBC 4.3 10x3/uL (4.8-10.8)
[2017-03-27 05:29] LABS: ALKALINE PHOSPHATASE 152 U/L (46-116); ALT (SGPT) 23 U/L (10-68); AMYLASE - SERUM 54 U/L (25-115); BILIRUBIN - TOTAL 0.28 mg/dL (0.2-1.3); CALC OSMOLALITY 266 mosm/kg (275-300); CALCIUM 8.8 mg/dL (8.5-10.1); CARBON DIOXIDE 27.4 mmol/L (21.0-32.0); CHLORIDE - SERUM 102 mmol/L (98-107); GLUCOSE 106 mg/dL (74-106); LIPASE 172 U/L (73-393); MAGNESIUM - SERUM 2.4 mg/dL (1.8-2.4); PHOSPHOROUS 3.4 mg/dL (2.5-4.9); POTASSIUM - SERUM 3.5 mmol/L (3.5-5.1); PRO BNP 459 pg/mL (0-125); SODIUM 135 mmol/L (136-145); THYROID STIMULATING HORMONE 2.87 uIU/mL (0.36-3.74); UREA NITROGEN 5 mg/dL (7-18)
[2017-03-27 05:30] LABS: CREATININE - SERUM 0.6 mg/dL (0.6-1.3); eGFR NON AFRICAN AMERICAN > 90 mL/min (90-120)
[2017-03-27 05:36] VITALS: BP 164/99
[2017-03-27 06:12] LABS: FOLATE (FOLIC ACID) - SERUM >20.0 ng/mL (>3.0)
[2017-03-27 08:00] VITALS: BP 140/80
[2017-03-27 12:00] VITALS: BP 148/82
== END 2017-03-27 17:10 | disposition home or self-care (01) ==
LOC: OBSVTIME → D.ER 21:22 → D.M2 03-26 01:33 → D.ER 03-26 01:33 → OBSVTIME 03-26 01:33 → D.M2 03-26 02:21 → OBSVTIME 03-26 02:21 → D.M2 03-26 02:21
PROVIDERS: Family Medicine; Nurse Practitioner Family
DX: D61.818 Other pancytopenia (principal); F10.129 Alcohol abuse with intoxication, unspecified; Y90.2 Blood alcohol level of 40-59 mg/100 ml; E87.6 Hypokalemia; F19.90 Other psychoactive substance use, unspecified, uncomplicated; J44.9 Chronic obstructive pulmonary disease, unspecified; Z86.73 Personal history of transient ischemic attack (TIA), and cerebral infarction without residual deficits; E87.1 Hypo-osmolality and hyponatremia; F41.8 Other specified anxiety disorders

== ENCOUNTER 2017-05-02 07:54 | Inpatient (IN) | payer MEDICARE ==
[~2017-05-02] VITALS: Ht 152.4 cm; Wt 57.9 kg
[~2017-05-02 07:54] MED LIST changes: +TRAZODONE HCL50 MG PO; +ULTRAM50 MG PO
[2017-05-02 09:46] LABS: HEMATOCRIT 32.5 % (36.0-48.0); HEMOGLOBIN 11.7 g/dL (12-16); MCH 32.3 pg (26.0-34.0); MCV 89.8 fL (80.0-100.0); MEAN PLATELET VOLUME 8.8 fL (7.4-10.4); RBC 3.62 10x6/uL (4.00-5.40); RDW 12.7 % (11.5-14.5); WBC 5.6 10x3/uL (4.8-10.8)
[2017-05-02 09:49] LABS: PLATELET COUNT 214 10x3/uL (130-400)
[2017-05-02 10:16] LABS: ANISOCYTOSIS OCC; EOSINOPHILS 3 % (0-7); LYMPHOCYTES 23 % (15-50); MONOCYTES 18 % (2-11); NEUTROPHILS 56 % (40-80); POIKILOCYTOSIS OCC; ROULEAUX OCC
[2017-05-02 10:17] LABS: CRENATED CELLS OCC; PLATELET ESTIMATE NORMAL
[2017-05-02 10:36] LABS: ALBUMIN 3.1 g/dL (3.4-5.0); ALKALINE PHOSPHATASE 141 U/L (46-116); ALT (SGPT) 25 U/L (10-68); BILIRUBIN - TOTAL 0.56 mg/dL (0.2-1.3); CALC OSMOLALITY 251 mosm/kg (275-300); CALCIUM 7.7 mg/dL (8.5-10.1); CARBON DIOXIDE 23.3 mmol/L (21.0-32.0); CHLORIDE - SERUM 91 mmol/L (98-107); CREATININE - SERUM 0.9 mg/dL (0.6-1.3); GLUCOSE 126 mg/dL (74-106); POTASSIUM - SERUM 3.8 mmol/L (3.5-5.1); SODIUM 125 mmol/L (136-145); UREA NITROGEN 6 mg/dL (7-18); eGFR NON AFRICAN AMERICAN 66 mL/min (90-120)
[2017-05-02 10:46] LABS: APPEARANCE CLOUDY (CLEAR); BILIRUBIN NEGATIVE (NEGATIVE); COLOR YELLOW (YELLOW); GLUCOSE NEGATIVE (NEGATIVE); KETONE NEGATIVE (NEGATIVE); NITRITE NEGATIVE (NEGATIVE); PROTEIN TRACE mg/dL (NEGATIVE); UROBILINOGEN NORMAL (NORMAL)
[2017-05-02 10:47] LABS: ACETAMINOPHEN 0.6 ug/mL (10.0-30.0); CKMB 2.1 U/L (0.0-3.6); CREATINE KINASE 144 UL (21-215); MAGNESIUM - SERUM 1.9 mg/dL (1.8-2.4); PHOSPHOROUS 3.3 mg/dL (2.5-4.9); PRO BNP 391 pg/mL (0-125)
[2017-05-02 10:49] LABS: UDS - AMPHET NEGATIVE QUAL (NEGATIVE); UDS - BARB NEGATIVE QUAL (NEGATIVE); UDS - BENZO NEGATIVE QUAL (NEGATIVE); UDS - COCAINE NEGATIVE QUAL (NEGATIVE); UDS - OPIATE NEGATIVE QUAL (NEGATIVE); UDS - PCP NEGATIVE QUAL (NEGATIVE); UDS - THC NEGATIVE QUAL (NEGATIVE)
[2017-05-02 10:52] LABS: BACTERIA MODERATE /hpf (NONE SEEN); EPITHELIAL CELLS 0-5 /hpf (0-5); RED CELLS - URINE RARE /hpf (0-5); WHITE CELLS - URINE 0-5 /hpf (0-5)
[2017-05-02 10:53] LABS: GRANULAR CAST RARE /lpf (NONE SEEN); MUCUS <1+ /lpf (NONE SEEN)
[2017-05-02 10:56] LABS: TROPONIN-I < 0.017 ng/mL (0.000-0.060)
[2017-05-02 15:30] VITALS: BP 117/50
[2017-05-02 15:50] VITALS: BP 112/60; BMI 23.0
[2017-05-02 16:00] VITALS: BP 118/62
[2017-05-02 17:00] VITALS: BP 122/65
[2017-05-02 19:00] VITALS: BP 97/59
[2017-05-02 23:00] VITALS: BP 85/57
[2017-05-03 03:00] VITALS: BP 94/89
[2017-05-03 04:16] LABS: BASOPHILS 0.4 % (0-2); HEMATOCRIT 30.4 % (36.0-48.0); HEMOGLOBIN 10.5 g/dL (12-16); IMMATURE GRANULOCYTES 0.2 % (0-5); LYMPHOCYTES 28.5 % (15-50); MCH 31.8 pg (26.0-34.0); MCHC 34.5 g/dL (31.0-37.0); MCV 92.1 fL (80.0-100.0); MEAN PLATELET VOLUME 9.2 fL (7.4-10.4); MONOCYTES 10.8 % (2-11); NEUTROPHILS 56.1 % (40-80); PLATELET COUNT 228 10x3/uL (130-400); RDW 13.1 % (11.5-14.5); WBC 4.5 10x3/uL (4.8-10.8)
[2017-05-03 04:32] LABS: ALBUMIN 2.7 g/dL (3.4-5.0); ALKALINE PHOSPHATASE 146 U/L (46-116); ALT (SGPT) 22 U/L (10-68); BILIRUBIN - TOTAL 0.35 mg/dL (0.2-1.3); CALC OSMOLALITY 265 mosm/kg (275-300); CALCIUM 7.7 mg/dL (8.5-10.1); CHLORIDE - SERUM 102 mmol/L (98-107); CREATININE - SERUM 0.7 mg/dL (0.6-1.3); GLUCOSE 96 mg/dL (74-106); PROTEIN - SERUM 5.5 g/dL (6.4-8.2); SODIUM 134 mmol/L (136-145); UREA NITROGEN 7 mg/dL (7-18); eGFR NON AFRICAN AMERICAN 89 mL/min (90-120)
[2017-05-03 04:34] LABS: POTASSIUM - SERUM 3.1 mmol/L (3.5-5.1)
[2017-05-03 07:00] VITALS: BP 114/67
[2017-05-03 08:00] VITALS: BP 113/73
[2017-05-03 09:00] VITALS: BP 98/70
[2017-05-03 09:31] VITALS: Ht 152.4 cm; Wt 57.9 kg
== END 2017-05-03 15:31 | disposition home or self-care (01) | DRG 70 ==
LOC: D.ER 07:54 → D.ICU 14:55
PROVIDERS: Family Medicine
PROC: 0T9B70Z Drainage of Bladder with Drainage Device, Via Natural or Artificial Opening (ICD-10-PCS; principal; 2017-05-02)
DX: G93.40 Encephalopathy, unspecified (principal); J96.01 Acute respiratory failure with hypoxia; E87.1 Hypo-osmolality and hyponatremia; N39.0 Urinary tract infection, site not specified; F10.129 Alcohol abuse with intoxication, unspecified; Y90.0 Blood alcohol level of less than 20 mg/100 ml; Z86.73 Personal history of transient ischemic attack (TIA), and cerebral infarction without residual deficits; I25.10 Atherosclerotic heart disease of native coronary artery without angina pectoris; J44.9 Chronic obstructive pulmonary disease, unspecified

== ENCOUNTER → 2017-07-17 18:32 | Outpatient (CLI) | payer MEDICARE ==
[2017-05-03 09:31] VITALS: BMI 23.0
[2017-07-17 19:28] LABS: PHENYTOIN (DILANTIN) 34.9 ug/mL (10.0-20.0)
[2017-07-17 19:29] LABS: LDL-HDL RATIO 0.9 ratio (1.5-3.5)
== END | disposition home or self-care (01) ==
LOC: D.LAB 18:32
PROVIDERS: Nurse Practitioner
DX: E78.5 Hyperlipidemia, unspecified (principal)

== ENCOUNTER 2017-09-11 22:00 | Inpatient (IN) | payer MEDICARE ==
[~2017-09-11] VITALS: Ht 152.4 cm; Wt 51.5 kg
[2017-09-11 22:30] VITALS: BP 146/83
[2017-09-11 23:30] VITALS: BP 127/76
[2017-09-11 23:52] LABS: ALBUMIN 3.4 g/dL (3.4-5.0); ALKALINE PHOSPHATASE 293 U/L (46-116); ALT (SGPT) 24 U/L (10-68); BILIRUBIN - TOTAL 0.31 mg/dL (0.2-1.3); CALCIUM 9.1 mg/dL (8.5-10.1); CARBON DIOXIDE 21.5 mmol/L (21.0-32.0); CREATININE - SERUM 0.5 mg/dL (0.6-1.3); POTASSIUM - SERUM 3.4 mmol/L (3.5-5.1); PROTEIN - SERUM 7.7 g/dL (6.4-8.2); UREA NITROGEN 3 mg/dL (7-18); eGFR NON AFRICAN AMERICAN > 90 mL/min (90-120)
[2017-09-11 23:54] LABS: APPEARANCE CLEAR (CLEAR); BILIRUBIN NEGATIVE (NEGATIVE); COLOR YELLOW (YELLOW); GLUCOSE 250 mg/dL (NEGATIVE); KETONE NEGATIVE (NEGATIVE); NITRITE NEGATIVE (NEGATIVE); PROTEIN NEGATIVE (NEGATIVE); SPECIFIC GRAVITY 1.015 (1.005-1.020); UDS - AMPHET NEGATIVE QUAL (NEGATIVE); UDS - BARB NEGATIVE QUAL (NEGATIVE); UDS - BENZO NEGATIVE QUAL (NEGATIVE); UDS - COCAINE NEGATIVE QUAL (NEGATIVE); UDS - OPIATE NEGATIVE QUAL (NEGATIVE); UDS - PCP NEGATIVE QUAL (NEGATIVE); UDS - THC NEGATIVE QUAL (NEGATIVE); UROBILINOGEN NORMAL (NORMAL)
[2017-09-11 23:55] LABS: HEMATOCRIT 30.7 % (36.0-48.0); HEMOGLOBIN 10.2 g/dL (12-16); LYMPHOCYTES 18.6 % (15-50); MCH 26.8 pg (26.0-34.0); MCHC 33.2 g/dL (31.0-37.0); MCV 80.8 fL (80.0-100.0); MEAN PLATELET VOLUME 8.6 fL (7.4-10.4); NEUTROPHILS 69.8 % (40-80); PLATELET COUNT 326 10x3/uL (130-400); RDW 21.4 % (11.5-14.5); WBC 3.7 10x3/uL (4.8-10.8)
[2017-09-11 23:56] LABS: CALC OSMOLALITY 235 mosm/kg (275-300); GLUCOSE 51 mg/dL (74-106); SODIUM 120 mmol/L (136-145)
[2017-09-11 23:57] LABS: CHLORIDE - SERUM 85 mmol/L (98-107)
[2017-09-12] VITALS (19 sets, daily range): BP systolic 86–144; BP diastolic 47–85; Ht 152.4 cm; Wt 51.5 kg
[2017-09-12 00:06] LABS: PHENYTOIN (DILANTIN) 17.3 ug/mL (10.0-20.0)
[2017-09-12 10:05] LABS: BASOPHILS 0 % (0-2); EOSINOPHILS 0.6 % (0-7); IMMATURE GRANULOCYTES 0.3 % (0-5); LYMPHOCYTES 21.9 % (15-50); MCH 26.8 pg (26.0-34.0); MCHC 33.3 g/dL (31.0-37.0); MCV 80.4 fL (80.0-100.0); MEAN PLATELET VOLUME 8.1 fL (7.4-10.4); MONOCYTES 10.8 % (2-11); NEUTROPHILS 66.4 % (40-80); RBC 3.36 10x6/uL (4.00-5.40); RDW 20.1 % (11.5-14.5); WBC 3.3 10x3/uL (4.8-10.8)
[2017-09-12 10:32] LABS: ALBUMIN 2.8 g/dL (3.4-5.0); ALKALINE PHOSPHATASE 257 U/L (46-116); ALT (SGPT) 20 U/L (10-68); CALCIUM 8.5 mg/dL (8.5-10.1); CARBON DIOXIDE 24.5 mmol/L (21.0-32.0); CHLORIDE - SERUM 93 mmol/L (98-107); CREATININE - SERUM 0.6 mg/dL (0.6-1.3); POTASSIUM - SERUM 3.7 mmol/L (3.5-5.1); PROTEIN - SERUM 6.3 g/dL (6.4-8.2); SODIUM 126 mmol/L (136-145); eGFR NON AFRICAN AMERICAN > 90 mL/min (90-120)
[2017-09-12 10:33] LABS: PLATELET COUNT 238 10x3/uL (130-400)
[2017-09-12 10:35] LABS: CALC OSMOLALITY 246 mosm/kg (275-300); GLUCOSE 70 mg/dL (74-106); UREA NITROGEN 2 mg/dL (7-18)
[2017-09-12 12:38] LABS: MAGNESIUM - SERUM 1.9 mg/dL (1.8-2.4); PHOSPHOROUS 2.5 mg/dL (2.5-4.9); THYROID STIMULATING HORMONE 1.99 uIU/mL (0.36-3.74)
[2017-09-12 14:30] LABS: CALC OSMOLALITY 252 mosm/kg (275-300); CARBON DIOXIDE 22.8 mmol/L (21.0-32.0); CHLORIDE - SERUM 94 mmol/L (98-107); CREATININE - SERUM 0.6 mg/dL (0.6-1.3); GLUCOSE 151 mg/dL (74-106); POTASSIUM - SERUM 4.5 mmol/L (3.5-5.1); SODIUM 126 mmol/L (136-145); UREA NITROGEN 3 mg/dL (7-18); eGFR NON AFRICAN AMERICAN > 90 mL/min (90-120)
[2017-09-12 18:30] LABS: CALCIUM 8.2 mg/dL (8.5-10.1); CARBON DIOXIDE 26.5 mmol/L (21.0-32.0); CHLORIDE - SERUM 95 mmol/L (98-107); CREATININE - SERUM 0.7 mg/dL (0.6-1.3); SODIUM 128 mmol/L (136-145); eGFR NON AFRICAN AMERICAN 89 mL/min (90-120)
[2017-09-12 18:32] LABS: CALC OSMOLALITY 249 mosm/kg (275-300); UREA NITROGEN 2 mg/dL (7-18)
[2017-09-12 18:33] LABS: GLUCOSE 37 mg/dL (74-106)
[2017-09-12 23:08] LABS: CALCIUM 9.5 mg/dL (8.5-10.1); CARBON DIOXIDE 25.2 mmol/L (21.0-32.0); CREATININE - SERUM 3.6 mg/dL (0.6-1.3); POTASSIUM - SERUM 4.2 mmol/L (3.5-5.1)
[2017-09-13] VITALS (9 sets, daily range): BP systolic 85–138; BP diastolic 50–92
[2017-09-13 02:33] LABS: BASOPHILS 0.3 % (0-2); EOSINOPHILS 2.3 % (0-7); HEMATOCRIT 25.8 % (36.0-48.0); HEMOGLOBIN 8.2 g/dL (12-16); LYMPHOCYTES 22.9 % (15-50); MCH 26.2 pg (26.0-34.0); MCHC 31.8 g/dL (31.0-37.0); MEAN PLATELET VOLUME 8.5 fL (7.4-10.4); MONOCYTES 14.8 % (2-11); NEUTROPHILS 59.7 % (40-80); PLATELET COUNT 235 10x3/uL (130-400); RBC 3.13 10x6/uL (4.00-5.40); RDW 20.8 % (11.5-14.5); WBC 3.8 10x3/uL (4.8-10.8)
[2017-09-13 02:47] LABS: MCV 82.4 fL (80.0-100.0)
[2017-09-13 03:00] LABS: ALBUMIN 2.6 g/dL (3.4-5.0); ALKALINE PHOSPHATASE 239 U/L (46-116); ALT (SGPT) 22 U/L (10-68); BILIRUBIN - TOTAL 0.24 mg/dL (0.2-1.3); CALCIUM 8.2 mg/dL (8.5-10.1); CARBON DIOXIDE 26.3 mmol/L (21.0-32.0); CHLORIDE - SERUM 98 mmol/L (98-107); GLUCOSE 144 mg/dL (74-106); POTASSIUM - SERUM 3.8 mmol/L (3.5-5.1); PROTEIN - SERUM 5.9 g/dL (6.4-8.2); SODIUM 131 mmol/L (136-145); eGFR NON AFRICAN AMERICAN 89 mL/min (90-120)
[2017-09-13 03:03] LABS: CALC OSMOLALITY 261 mosm/kg (275-300); CREATININE - SERUM 0.7 mg/dL (0.6-1.3); UREA NITROGEN 1 mg/dL (7-18)
[2017-09-14 00:34] VITALS: BP 171/102
[2017-09-14 04:36] LABS: BASOPHILS 0.4 % (0-2); EOSINOPHILS 7.1 % (0-7); HEMATOCRIT 24.6 % (36.0-48.0); HEMOGLOBIN 7.8 g/dL (12-16); IMMATURE GRANULOCYTES 0.2 % (0-5); LYMPHOCYTES 21.5 % (15-50); MCH 26.8 pg (26.0-34.0); MCHC 31.7 g/dL (31.0-37.0); MEAN PLATELET VOLUME 8.7 fL (7.4-10.4); MONOCYTES 14.9 % (2-11); NEUTROPHILS 55.9 % (40-80); PLATELET COUNT 222 10x3/uL (130-400); RBC 2.91 10x6/uL (4.00-5.40); RDW 21.2 % (11.5-14.5); WBC 4.5 10x3/uL (4.8-10.8)
[2017-09-14 04:43] LABS: MCV 84.5 fL (80.0-100.0)
[2017-09-14 04:51] LABS: ALBUMIN 2.6 g/dL (3.4-5.0); ALKALINE PHOSPHATASE 225 U/L (46-116); ALT (SGPT) 20 U/L (10-68); CALC OSMOLALITY 261 mosm/kg (275-300); CALCIUM 8.3 mg/dL (8.5-10.1); CARBON DIOXIDE 23.6 mmol/L (21.0-32.0); CHLORIDE - SERUM 100 mmol/L (98-107); CREATININE - SERUM 0.5 mg/dL (0.6-1.3); GLUCOSE 114 mg/dL (74-106); PROTEIN - SERUM 5.9 g/dL (6.4-8.2); SODIUM 132 mmol/L (136-145); UREA NITROGEN 2 mg/dL (7-18); eGFR NON AFRICAN AMERICAN > 90 mL/min (90-120)
[2017-09-14 05:19] VITALS: BP 132/72
[2017-09-14 08:06] VITALS: BP 139/70
[2017-09-14 16:45] VITALS: BP 138/68
[2017-09-14 20:00] VITALS: BP 179/99
[2017-09-15] VITALS: BP 151/82
[2017-09-15 08:33] LABS: ALBUMIN 2.5 g/dL (3.4-5.0); ALKALINE PHOSPHATASE 203 U/L (46-116); ALT (SGPT) 18 U/L (10-68); BILIRUBIN - TOTAL 0.48 mg/dL (0.2-1.3); CALCIUM 8.3 mg/dL (8.5-10.1); CARBON DIOXIDE 22.3 mmol/L (21.0-32.0); CHLORIDE - SERUM 102 mmol/L (98-107); CREATININE - SERUM 0.6 mg/dL (0.6-1.3); GLUCOSE 80 mg/dL (74-106); PROTEIN - SERUM 5.7 g/dL (6.4-8.2); SODIUM 134 mmol/L (136-145); eGFR NON AFRICAN AMERICAN > 90 mL/min (90-120)
[2017-09-15 08:39] LABS: CALC OSMOLALITY 263 mosm/kg (275-300); POTASSIUM - SERUM 4.9 mmol/L (3.5-5.1); UREA NITROGEN 3 mg/dL (7-18)
[2017-09-15 08:43] VITALS: BP 135/86
[2017-09-15 09:22] LABS: BASOPHILS 0.7 % (0-2); EOSINOPHILS 10.2 % (0-7); IMMATURE GRANULOCYTES 0.5 % (0-5); LYMPHOCYTES 21.8 % (15-50); MCH 26.9 pg (26.0-34.0); MCV 84.2 fL (80.0-100.0); MEAN PLATELET VOLUME 8.4 fL (7.4-10.4); MONOCYTES 19.4 % (2-11); NEUTROPHILS 47.4 % (40-80); PLATELET COUNT 217 10x3/uL (130-400); RBC 2.97 10x6/uL (4.00-5.40); RDW 21.2 % (11.5-14.5)
[2017-09-15 11:59] VITALS: BP 134/80
[2017-09-15 16:07] VITALS: BP 144/84
[2017-09-15 20:00] VITALS: BP 146/91
[2017-09-16 04:44] LABS: BASOPHILS 0.3 % (0-2); HEMOGLOBIN 7.6 g/dL (12-16); IMMATURE GRANULOCYTES 0.1 % (0-5); LYMPHOCYTES 14.3 % (15-50); MCH 26.5 pg (26.0-34.0); MCHC 31.7 g/dL (31.0-37.0); MCV 83.6 fL (80.0-100.0); MEAN PLATELET VOLUME 8.5 fL (7.4-10.4); MONOCYTES 9.5 % (2-11); NEUTROPHILS 70.8 % (40-80); PLATELET COUNT 227 10x3/uL (130-400); RBC 2.87 10x6/uL (4.00-5.40); RDW 21.2 % (11.5-14.5)
[2017-09-16 04:58] LABS: WBC 6.9 10x3/uL (4.8-10.8)
[2017-09-16 05:14] LABS: ALBUMIN 2.7 g/dL (3.4-5.0); ALKALINE PHOSPHATASE 195 U/L (46-116); ALT (SGPT) 16 U/L (10-68); CALCIUM 8.3 mg/dL (8.5-10.1); CARBON DIOXIDE 24.4 mmol/L (21.0-32.0); CHLORIDE - SERUM 99 mmol/L (98-107); CREATININE - SERUM 0.6 mg/dL (0.6-1.3); GLUCOSE 96 mg/dL (74-106); PROTEIN - SERUM 5.9 g/dL (6.4-8.2); SODIUM 133 mmol/L (136-145); eGFR NON AFRICAN AMERICAN > 90 mL/min (90-120)
[2017-09-16 05:16] LABS: CALC OSMOLALITY 261 mosm/kg (275-300); POTASSIUM - SERUM 3.5 mmol/L (3.5-5.1); UREA NITROGEN 2 mg/dL (7-18)
[2017-09-16 07:40] VITALS: BP 131/59
[2017-09-16 11:41] VITALS: BP 153/82
[2017-09-16 20:00] VITALS: BP 119/69
[2017-09-17 01:43] VITALS: BP 124/67
[2017-09-17 04:49] VITALS: BP 140/78
[2017-09-17 07:41] VITALS: BP 124/66
[2017-09-17 11:52] VITALS: BP 115/69
[2017-09-17 14:09] LABS: BASOPHILS 0.3 % (0-2); EOSINOPHILS 6.9 % (0-7); HEMOGLOBIN 13.9 g/dL (12-16); IMMATURE GRANULOCYTES 0.3 % (0-5); LYMPHOCYTES 25.9 % (15-50); MCH 28.2 pg (26.0-34.0); MCHC 33.1 g/dL (31.0-37.0); MCV 85.2 fL (80.0-100.0); MEAN PLATELET VOLUME 9.6 fL (7.4-10.4); MONOCYTES 13.1 % (2-11); NEUTROPHILS 53.5 % (40-80); PLATELET COUNT 75 10x3/uL (130-400); RBC 4.93 10x6/uL (4.00-5.40); RDW 19.7 % (11.5-14.5); WBC 3.1 10x3/uL (4.8-10.8)
[2017-09-17 14:25] LABS: ALBUMIN 2.9 g/dL (3.4-5.0); ALKALINE PHOSPHATASE 197 U/L (46-116); ALT (SGPT) 23 U/L (10-68); BILIRUBIN - TOTAL 0.41 mg/dL (0.2-1.3); CALC OSMOLALITY 264 mosm/kg (275-300); CALCIUM 8.2 mg/dL (8.5-10.1); CARBON DIOXIDE 22.1 mmol/L (21.0-32.0); CHLORIDE - SERUM 100 mmol/L (98-107); CREATININE - SERUM 0.6 mg/dL (0.6-1.3); GLUCOSE 89 mg/dL (74-106); POTASSIUM - SERUM 4.9 mmol/L (3.5-5.1); PROTEIN - SERUM 6.7 g/dL (6.4-8.2); SODIUM 134 mmol/L (136-145); UREA NITROGEN 6 mg/dL (7-18); URIC ACID 4.1 mg/dL (2.6-7.2); eGFR NON AFRICAN AMERICAN > 90 mL/min (90-120)
[2017-09-17 14:29] LABS: PLATELET ESTIMATE DECREASED
[2017-09-17 15:09] VITALS: BP 127/64
[2017-09-17 20:24] VITALS: BP 143/67
[2017-09-18 04:54] VITALS: BP 132/61
[2017-09-18 06:26] LABS: EOSINOPHILS 10.8 % (0-7); HEMATOCRIT 36.2 % (36.0-48.0); IMMATURE GRANULOCYTES 0.3 % (0-5); LYMPHOCYTES 30.8 % (15-50); MCH 27.8 pg (26.0-34.0); MCHC 33.1 g/dL (31.0-37.0); MEAN PLATELET VOLUME 8.9 fL (7.4-10.4); MONOCYTES 17.2 % (2-11); NEUTROPHILS 39.9 % (40-80); RBC 4.31 10x6/uL (4.00-5.40); RDW 19.4 % (11.5-14.5)
[2017-09-18 06:28] LABS: PLATELET COUNT 196 10x3/uL (130-400); WBC 3.9 10x3/uL (4.8-10.8)
[2017-09-18 06:56] LABS: ALBUMIN 2.9 g/dL (3.4-5.0); ALKALINE PHOSPHATASE 174 U/L (46-116); ALT (SGPT) 18 U/L (10-68); BILIRUBIN - TOTAL 0.29 mg/dL (0.2-1.3); CALC OSMOLALITY 267 mosm/kg (275-300); CALCIUM 8.6 mg/dL (8.5-10.1); CARBON DIOXIDE 24.3 mmol/L (21.0-32.0); CHLORIDE - SERUM 101 mmol/L (98-107); CREATININE - SERUM 0.7 mg/dL (0.6-1.3); GLUCOSE 99 mg/dL (74-106); PROTEIN - SERUM 6.5 g/dL (6.4-8.2); SODIUM 135 mmol/L (136-145); UREA NITROGEN 6 mg/dL (7-18); eGFR NON AFRICAN AMERICAN 89 mL/min (90-120)
[2017-09-18 07:09] LABS: POTASSIUM - SERUM 3.5 mmol/L (3.5-5.1)
[2017-09-18 08:44] VITALS: BP 136/79
[2017-09-18 12:15] VITALS: BP 128/76
== END 2017-09-18 13:42 | disposition home or self-care (01) | DRG 432 ==
LOC: D.ER 22:00 → D.M2 09-12 03:04 → D.EDHOLD 09-12 03:04 → D.M2 09-12 03:20 → D.ICU 09-12 13:08 → D.M2 09-13 11:58
PROVIDERS: Emergency Medicine; Family Medicine; Internal Medicine Nephrology
PROC: 05HC33Z Insertion of Infusion Device into Left Basilic Vein, Percutaneous Approach (ICD-10-PCS; principal; 2017-09-16)
PROC: B54NZZA Ultrasonography of Left Upper Extremity Veins, Guidance (ICD-10-PCS; 2017-09-16)
DX: K70.30 Alcoholic cirrhosis of liver without ascites (principal); G92 Toxic encephalopathy; E87.1 Hypo-osmolality and hyponatremia; N17.9 Acute kidney failure, unspecified; E16.2 Hypoglycemia, unspecified; F10.129 Alcohol abuse with intoxication, unspecified; Y90.3 Blood alcohol level of 60-79 mg/100 ml; J44.9 Chronic obstructive pulmonary disease, unspecified; I25.10 Atherosclerotic heart disease of native coronary artery without angina pectoris; B19.20 Unspecified viral hepatitis C without hepatic coma; D50.9 Iron deficiency anemia, unspecified; G40.909 Epilepsy, unspecified, not intractable, without status epilepticus; I25.2 Old myocardial infarction; Z86.73 Personal history of transient ischemic attack (TIA), and cerebral infarction without residual deficits; M79.89 Other specified soft tissue disorders; D69.6 Thrombocytopenia, unspecified

== ENCOUNTER 2018-03-20 07:01 | Inpatient (IN) | payer MEDICARE ==
[~2018-03-20] VITALS: Ht 152.4 cm; Wt 59.0 kg
[2018-03-20] VITALS (11 sets, daily range): BP systolic 93–153; BP diastolic 46–95
--- NOTE | ~2018-03-20 | MORECARE ---
CASE MANAGEMENT DISCHARGE SUMMARY PATIENT: ABIODUN VOSS UNIT: [id number] ADM DATE: 03/21/18 AGE: 67 : [birth year] SEX: F ROOM/BED: D.2210 AUTHOR: SASHA MATTHEWS PHYSICIAN: REFERRING PHYSICIAN: KANDACE BRUNNER MD DATE OF SERVICE: 03/27/18 Discharge Plan Patient Name: ABIODUN VOSS Facility: [facility]:[place] : 1950 Planned Disposition: Home or Self Care Anticipated Discharge Date: Discharge Date: 03/25/2018 Expected LOS: 0 Initial Reviewer: [email or web address] Initial Review Date: 03/20/2018 Generated: 03/27/18 1:31 pm Comments DCP- Discharge Planning Updated by [email or web address]: Kiesha Moses on 03/26/18 4:[address] Received a call from Gia with [facility] that [facility] was unable to accept patient so they referred the patient to [facility]. DCP- Discharge Planning Updated by [email or web address]: Eve Jensen on 03/21/18 2:[address] Patient Name: ABIODUN VOSS Admission Status: ER Accout number: [id number] Admission Date: 03-21-2018 : 1950 Admission Diagnosis: Attending: KANDACE BRUNNER Current LOS: 1 Anticipated DC Date: Planned Disposition: Primary Insurance: MEDICARE A & B Discharge Planning Comments: I called and spoke with Layo () [phone]. He stated that prior to the hospital she was independent with her care, he just helped her with her medications. He stated that she has dementia and sometimes can't answer questions. He said that they have a shower chair & walker at home, but she does not use it. I asked about home health and he stated he would like to keep the discussion open when the time comes. He stated that his home is safe they have running water and electricity. CM will continue to follow and assist with dc planning as needed Big Machine Consultant: Eve Jensen DCP- Discharge Planning Updated by [email or web address]: Eve Jensen on 03/21/18 2:[address] Attempted to assess patient, but she was unable to communicate clearly to me and answers questions. She had a hard time expressing her thoughts. She stated that her was Layo and her "DR was Dr Read, but he " Permission given to call and talk to her . CM will continue to follow and assist with DC planning DCPIA - Discharge Planning Initial Assessment Updated by [email or web address]: Eve Jensen on 03/21/18 3:48 pm * Is the patient Alert and Oriented? Yes * How many steps to enter\\exit or inside your home? * PCP Laure Abreu (healthy connection) * Pharmacy [facility] * Preadmission Environment Home with Family * ADLs Partial Dependent * Partial ADLs (Assistance needed) Medication Management * Equipment Rolling Walker Shower Chair * List name and contact numbers for known caregivers / representatives who currently or will assist patient after discharge: Layo () [phone] * Verbal permission to speak to the caregivers and representatives has been obtained from the patient. Yes * Additional services required to return to the preadmission environment? No * Can the patient safely return to the preadmission environment? Yes * Has this patient been hospitalized within the prior 30 days at any hospital? No Last DP export: 03/26/18 4:12 Patient Name: ABIODUN VOSS Page [id number] at 1231 All edits/amendments must be made on the electronic document DICTATION DATE: 03/27/18 1231 CORDUROY CUTTING SUPERVISOR: GRICELDA 03/27/18 1231 RPT#: [id number] DC DATE:03/25/18 STATUS: DIS IN [facility] [address] [place] [address] END OF REPORT
--- NOTE | ~2018-03-20 | MORECARE ---
CASE MANAGEMENT DISCHARGE SUMMARY PATIENT: ABIODUN VOSS UNIT: [id number] ADM DATE: 03/21/18 AGE: 67 : 51 SEX: F ROOM/BED: D.2210 AUTHOR: SASHA MATTHEWS PHYSICIAN: REFERRING PHYSICIAN: KANDACE BRUNNER MD DATE OF SERVICE: 03/21/18 Discharge Plan Patient Name: ABIODUN VOSS Facility: [facility]:[place] : 1950 Planned Disposition: Anticipated Discharge Date: Discharge Date: Expected LOS: Initial Reviewer: [email or web address] Initial Review Date: 03/20/2018 Generated: 03/21/18 4:40 pm Comments DCP- Discharge Planning Updated by [email or web address]: Eve Jensen on 03/21/18 2:[address] Attempted to assess patient, but she was unable to communicate clearly to me and answers questions. She had a hard time expressing her thoughts. She stated that her was Layo and her "DR was Dr Read, but he " Permission given to call and talk to her . CM will continue to follow and assist with DC planning Patient Name: ABIODUN VOSS Page [id number] at 1541 All edits/amendments must be made on the electronic document DICTATION DATE: 03/21/18 1540 WHEEL MOLDER: GRICELDA 03/21/18 1540 RPT#: [id number] DC DATE: STATUS: ADM IN [facility] [address] [place] [address] END OF REPORT
--- NOTE | ~2018-03-20 | MORECARE ---
CASE MANAGEMENT DISCHARGE SUMMARY PATIENT: ABIODUN VOSS UNIT: [id number] ADM DATE: 03/21/18 AGE: 67 : 51 SEX: F ROOM/BED: D.2210 AUTHOR: SASHA MATTHEWS PHYSICIAN: REFERRING PHYSICIAN: KANDACE BRUNNER MD DATE OF SERVICE: 03/21/18 Discharge Plan Patient Name: ABIODUN VOSS Facility: [facility]:[place] : 1950 Planned Disposition: Home or Self Care Anticipated Discharge Date: Discharge Date: Expected LOS: Initial Reviewer: [email or web address] Initial Review Date: 03/20/2018 Generated: 03/21/18 4:48 pm Comments DCP- Discharge Planning Updated by [email or web address]: Eve Jensen on 03/21/18 2:[address] Patient Name: ABIODUN VOSS Admission Status: ER Accout number: [id number] Admission Date: 03-21-2018 : 1950 Admission Diagnosis: Attending: KANDACE BRUNNER Current LOS: 1 Anticipated DC Date: Planned Disposition: Primary Insurance: MEDICARE A & B Discharge Planning Comments: I called and spoke with Layo () [phone]. He stated that prior to the hospital she was independent with her care, he just helped her with her medications. He stated that she has dementia and sometimes can't answer questions. He said that they have a shower chair & walker at home, but she does not use it. I asked about home health and he stated he would like to keep the discussion open when the time comes. He stated that his home is safe they have running water and electricity. CM will continue to follow and assist with dc planning as needed Personnel Scheduler: Eve Jensen DCP- Discharge Planning Updated by [email or web address]: Eve Jensen on 03/21/18 2:[address] Attempted to assess patient, but she was unable to communicate clearly to me and answers questions. She had a hard time expressing her thoughts. She stated that her was Layo and her "DR was Dr Read, but he " Permission given to call and talk to her . CM will continue to follow and assist with DC planning DCPIA - Discharge Planning Initial Assessment Updated by [email or web address]: Eve Jensen on 03/21/18 3:48 pm * Is the patient Alert and Oriented? Yes * How many steps to enter\\exit or inside your home? * PCP Laure Abreu (healthy connection) * Pharmacy [facility] * Preadmission Environment Home with Family * ADLs Partial Dependent * Partial ADLs (Assistance needed) Medication Management * Equipment Rolling Walker Shower Chair * List name and contact numbers for known caregivers / representatives who currently or will assist patient after discharge: Layo () [phone] * Verbal permission to speak to the caregivers and representatives has been obtained from the patient. Yes * Additional services required to return to the preadmission environment? No * Can the patient safely return to the preadmission environment? Yes * Has this patient been hospitalized within the prior 30 days at any hospital? No Last DP export: 03/21/18 2:41 Patient Name: ABIODUN VOSS Page [id number] at 1548 All edits/amendments must be made on the electronic document DICTATION DATE: 03/21/181546 SLITTER CREASER SLOTTER OPERATOR: GRICELDA 03/21/181546 RPT#: [id number] DC DATE: STATUS: ADM IN [facility] [address] [place] [address] END OF REPORT
--- NOTE | ~2018-03-20 | MORECARE ---
CASE MANAGEMENT DISCHARGE SUMMARY PATIENT: ABIODUN VOSS UNIT: [id number] ADM DATE: 03/21/18 AGE: 67 : 51 SEX: F ROOM/BED: D.2210 AUTHOR: SASHA MATTHEWS PHYSICIAN: REFERRING PHYSICIAN: KANDACE BRUNNER MD DATE OF SERVICE: 03/26/18 Discharge Plan Patient Name: ABIODUN VOSS Facility: [facility]:[place] : 1950 Planned Disposition: Home or Self Care Anticipated Discharge Date: Discharge Date: 03/25/2018 Expected LOS: Initial Reviewer: [email or web address] Initial Review Date: 03/20/2018 Generated: 03/26/18 6:12 pm Comments DCP- Discharge Planning Updated by [email or web address]: Kiesha Moses on 03/26/18 4:[address] Received a call from Gia with [facility] that [facility] was unable to accept patient so they referred the patient to [place]. DCP- Discharge Planning Updated by [email or web address]: Eve Jensen on 03/21/18 2:[address] Patient Name: ABIODUN VOSS Admission Status: ER Accout number: [id number] Admission Date: 03-21-2018 : 1950 Admission Diagnosis: Attending: KANDACE BRUNNER Current LOS: 1 Anticipated DC Date: Planned Disposition: Primary Insurance: MEDICARE A & B Discharge Planning Comments: I called and spoke with Layo () [phone]. He stated that prior to the hospital she was independent with her care, he just helped her with her medications. He stated that she has dementia and sometimes can't answer questions. He said that they have a shower chair & walker at home, but she does not use it. I asked about home health and he stated he would like to keep the discussion open when the time comes. He stated that his home is safe they have running water and electricity. CM will continue to follow and assist with dc planning as needed Counter Helper: Eve Jensen DCP- Discharge Planning Updated by [email or web address]: Eve Jensen on 03/21/18 2:[address] Attempted to assess patient, but she was unable to communicate clearly to me and answers questions. She had a hard time expressing her thoughts. She stated that her was Layo and her "DR was Dr Read, but he " Permission given to call and talk to her . CM will continue to follow and assist with DC planning DCPIA - Discharge Planning Initial Assessment Updated by [email or web address]: Eve Jensen on 03/21/18 3:48 pm * Is the patient Alert and Oriented? Yes * How many steps to enter\\exit or inside your home? * PCP Laure Abreu (healthy connection) * Pharmacy [facility] * Preadmission Environment Home with Family * ADLs Partial Dependent * Partial ADLs (Assistance needed) Medication Management * Equipment Rolling Walker Shower Chair * List name and contact numbers for known caregivers / representatives who currently or will assist patient after discharge: Layo () [phone] * Verbal permission to speak to the caregivers and representatives has been obtained from the patient. Yes * Additional services required to return to the preadmission environment? No * Can the patient safely return to the preadmission environment? Yes * Has this patient been hospitalized within the prior 30 days at any hospital? No Last DP export: 03/26/18 12:53 Patient Name: ABIODUN VOSS Page 16456 at 1712 All edits/amendments must be made on the electronic document DICTATION DATE: 03/26/181711 TEMPLATE REPRODUCTION TECHNICIAN: GRICELDA 03/26/181711 RPT#: [id number] DC DATE:03/25/18 STATUS: DIS IN [facility] [address] [place] [address] END OF REPORT
--- NOTE | ~2018-03-20 | MORECARE ---
CASE MANAGEMENT DISCHARGE SUMMARY PATIENT: ABIODUN VOSS UNIT: [id number] ADM DATE: 03/21/18 AGE: 67 : 51 SEX: F ROOM/BED: D.2210 AUTHOR: SASHA MATTHEWS PHYSICIAN: REFERRING PHYSICIAN: KANDACE BRUNNER MD DATE OF SERVICE: 03/26/18 Discharge Plan Patient Name: ABIODUN VOSS Facility: [facility]:[place] : 1950 Planned Disposition: Home or Self Care Anticipated Discharge Date: Discharge Date: 03/25/2018 Expected LOS: Initial Reviewer: [email or web address] Initial Review Date: 03/20/2018 Generated: 03/26/18 2:53 pm Comments DCP- Discharge Planning Updated by [email or web address]: Eve Jensen on 03/21/18 2:[address] Patient Name: ABIODUN VOSS Admission Status: ER Accout number: [id number] Admission Date: 03-21-2018 : 1950 Admission Diagnosis: Attending: KANDACE BRUNNER Current LOS: 1 Anticipated DC Date: Planned Disposition: Primary Insurance: MEDICARE A & B Discharge Planning Comments: I called and spoke with Layo () [phone]. He stated that prior to the hospital she was independent with her care, he just helped her with her medications. He stated that she has dementia and sometimes can't answer questions. He said that they have a shower chair & walker at home, but she does not use it. I asked about home health and he stated he would like to keep the discussion open when the time comes. He stated that his home is safe they have running water and electricity. CM will continue to follow and assist with dc planning as needed Blocker And Cutter Contact Lens: Eve Jensen DCP- Discharge Planning Updated by [email or web address]: Eve Jensen on 03/21/18 2:[address] Attempted to assess patient, but she was unable to communicate clearly to me and answers questions. She had a hard time expressing her thoughts. She stated that her was Layo and her "DR was Dr Read, but he " Permission given to call and talk to her . CM will continue to follow and assist with DC planning DCPIA - Discharge Planning Initial Assessment Updated by [email or web address]: Eve Jensen on 03/21/18 3:48 pm * Is the patient Alert and Oriented? Yes * How many steps to enter\\exit or inside your home? * PCP Laure Abreu (healthy connection) * Pharmacy [facility] * Preadmission Environment Home with Family * ADLs Partial Dependent * Partial ADLs (Assistance needed) Medication Management * Equipment Rolling Walker Shower Chair * List name and contact numbers for known caregivers / representatives who currently or will assist patient after discharge: Layo () [phone] * Verbal permission to speak to the caregivers and representatives has been obtained from the patient. Yes * Additional services required to return to the preadmission environment? No * Can the patient safely return to the preadmission environment? Yes * Has this patient been hospitalized within the prior 30 days at any hospital? No External Providers [facility] Next Contact Date: Service Request Date: Service Type: Resolution: Reviewer: Comments: Last DP export: 03/21/18 2:48 Patient Name: ABIODUN VOSS Page [id number] at 1353 All edits/amendments must be made on the electronic document DICTATION DATE: 03/26/18 1353 ARTILLERY OFFICER: GRICELDA 03/26/18 1353 RPT#: [id number] DC DATE:03/25/18 STATUS: DIS IN [facility] [address] [place] [address] END OF REPORT
[2018-03-20 07:34] LABS: BASOPHILS 0.1 % (0-2); EOSINOPHILS 0.4 % (0-7); HEMATOCRIT 37.9 % (36.0-48.0); HEMOGLOBIN 13.6 g/dL (12-16); IMMATURE GRANULOCYTES 0.1 % (0-5); LYMPHOCYTES 14.2 % (15-50); MCHC 35.9 g/dL (31.0-37.0); MCV 97.4 fL (80.0-100.0); MEAN PLATELET VOLUME 9.6 fL (7.4-10.4); MONOCYTES 18.2 % (2-11); PLATELET COUNT 155 10x3/uL (130-400); RBC 3.89 10x6/uL (4.00-5.40); WBC 6.8 10x3/uL (4.8-10.8)
[2018-03-20 08:38] LABS: ALBUMIN 2.8 g/dL (3.4-5.0); ALKALINE PHOSPHATASE 163 U/L (46-116); ALT (SGPT) 30 U/L (10-68); BILIRUBIN - TOTAL 0.82 mg/dL (0.2-1.3); CALC OSMOLALITY 241 mosm/kg (275-300); CALCIUM 8.4 mg/dL (8.5-10.1); CARBON DIOXIDE 28.2 mmol/L (21.0-32.0); CREATININE - SERUM 0.6 mg/dL (0.6-1.3); GLUCOSE 105 mg/dL (74-106); SODIUM 121 mmol/L (136-145); UREA NITROGEN 6 mg/dL (7-18); eGFR NON AFRICAN AMERICAN > 90 mL/min (90-120)
[2018-03-20 08:41] LABS: CHLORIDE - SERUM 83 mmol/L (98-107); CREATINE KINASE 170 UL (21-215); PHENYTOIN (DILANTIN) 3.1 ug/mL (10.0-20.0); TROPONIN-I < 0.017 ng/mL (0.000-0.060)
[2018-03-20 08:45] LABS: PRO BNP 893 pg/mL (0-125)
[2018-03-20 09:04] LABS: APPEARANCE CLEAR (CLEAR); BILIRUBIN NEGATIVE (NEGATIVE); COLOR YELLOW (YELLOW); GLUCOSE NEGATIVE (NEGATIVE); KETONE SMALL mg/dL (NEGATIVE); NITRITE NEGATIVE (NEGATIVE); PROTEIN NEGATIVE (NEGATIVE); SPECIFIC GRAVITY 1.015 (1.005-1.020); UROBILINOGEN NORMAL (NORMAL)
[2018-03-21] VITALS (7 sets, daily range): BP systolic 109–178; BP diastolic 60–87; Ht 152.4 cm; Wt 59.0 kg
[2018-03-21 05:23] LABS: BASOPHILS 0.5 % (0-2); EOSINOPHILS 2.4 % (0-7); IMMATURE GRANULOCYTES 0.2 % (0-5); LYMPHOCYTES 24.6 % (15-50); MCH 34.7 pg (26.0-34.0); MCHC 34.9 g/dL (31.0-37.0); MCV 99.3 fL (80.0-100.0); MONOCYTES 26.7 % (2-11); NEUTROPHILS 45.6 % (40-80); RDW 14.3 % (11.5-14.5)
[2018-03-21 05:24] LABS: HEMATOCRIT 29.8 % (36.0-48.0); HEMOGLOBIN 10.4 g/dL (12-16); PLATELET COUNT 119 10x3/uL (130-400); WBC 4.2 10x3/uL (4.8-10.8)
[2018-03-21 06:06] LABS: CALC OSMOLALITY 254 mosm/kg (275-300); CALCIUM 7.9 mg/dL (8.5-10.1); CARBON DIOXIDE 22.2 mmol/L (21.0-32.0); CHLORIDE - SERUM 94 mmol/L (98-107); GLUCOSE 76 mg/dL (74-106); SODIUM 129 mmol/L (136-145); UREA NITROGEN 5 mg/dL (7-18)
[2018-03-21 06:10] LABS: CREATININE - SERUM 0.4 mg/dL (0.6-1.3); POTASSIUM - SERUM 3.5 mmol/L (3.5-5.1); eGFR NON AFRICAN AMERICAN > 90 mL/min (90-120)
[2018-03-22] VITALS: BP 157/79
[2018-03-22 04:00] VITALS: BP 116/74
[2018-03-22 07:10] LABS: HEMATOCRIT 34.3 % (36.0-48.0); MCH 35.3 pg (26.0-34.0); MCV 100.9 fL (80.0-100.0); MEAN PLATELET VOLUME 9.3 fL (7.4-10.4); RDW 14.2 % (11.5-14.5); WBC 3.7 10x3/uL (4.8-10.8)
[2018-03-22 07:14] LABS: PLATELET COUNT 187 10x3/uL (130-400)
[2018-03-22 07:17] LABS: CALCIUM 8.5 mg/dL (8.5-10.1); CARBON DIOXIDE 25.3 mmol/L (21.0-32.0); CHLORIDE - SERUM 93 mmol/L (98-107); GLUCOSE 75 mg/dL (74-106); MAGNESIUM - SERUM 1.6 mg/dL (1.8-2.4); PHOSPHOROUS 2.3 mg/dL (2.5-4.9); POTASSIUM - SERUM 3.1 mmol/L (3.5-5.1); SODIUM 130 mmol/L (136-145)
[2018-03-22 07:18] LABS: CALC OSMOLALITY 256 mosm/kg (275-300); CREATININE - SERUM 0.6 mg/dL (0.6-1.3); UREA NITROGEN 3 mg/dL (7-18); eGFR NON AFRICAN AMERICAN > 90 mL/min (90-120)
[2018-03-22 07:44] LABS: BASOPHILS 1 % (0-2); EOSINOPHILS 4 % (0-7); LYMPHOCYTES 17 % (15-50); MONOCYTES 26 % (2-11); NEUTROPHILS 52 % (40-80); PLATELET ESTIMATE NORMAL
[2018-03-22 08:30] VITALS: BP 150/80
[2018-03-22 14:15] VITALS: BP 150/70
[2018-03-22 16:00] VITALS: BP 159/77
[2018-03-22 19:47] VITALS: BP 135/80
[2018-03-23] VITALS: BP 116/56
[2018-03-23 04:02] VITALS: BP 149/84
[2018-03-23 07:54] LABS: CALC OSMOLALITY 264 mosm/kg (275-300); CALCIUM 8.5 mg/dL (8.5-10.1); CARBON DIOXIDE 28.4 mmol/L (21.0-32.0); CHLORIDE - SERUM 96 mmol/L (98-107); CREATININE - SERUM 0.5 mg/dL (0.6-1.3); GLUCOSE 93 mg/dL (74-106); POTASSIUM - SERUM 3.9 mmol/L (3.5-5.1); SODIUM 134 mmol/L (136-145); UREA NITROGEN 3 mg/dL (7-18); eGFR NON AFRICAN AMERICAN > 90 mL/min (90-120)
[2018-03-23 09:03] VITALS: BP 138/67
[2018-03-23 11:36] LABS: BASOPHILS 0.6 % (0-2); EOSINOPHILS 7.3 % (0-7); HEMATOCRIT 36.6 % (36.0-48.0); HEMOGLOBIN 12.5 g/dL (12-16); IMMATURE GRANULOCYTES 0.2 % (0-5); MCHC 34.2 g/dL (31.0-37.0); MCV 102.5 fL (80.0-100.0); MEAN PLATELET VOLUME 9.3 fL (7.4-10.4); MONOCYTES 30.5 % (2-11); NEUTROPHILS 44.4 % (40-80); RBC 3.57 10x6/uL (4.00-5.40); RDW 14.2 % (11.5-14.5)
[2018-03-23 11:40] LABS: PLATELET COUNT 233 10x3/uL (130-400); WBC 5.1 10x3/uL (4.8-10.8)
[2018-03-23 12:00] LABS: MAGNESIUM - SERUM 1.7 mg/dL (1.8-2.4); PHOSPHOROUS 2.4 mg/dL (2.5-4.9)
[2018-03-23 12:30] VITALS: BP 146/83
[2018-03-23 17:15] VITALS: BP 132/68
[2018-03-23 20:00] VITALS: BP 139/92
[2018-03-24 04:00] VITALS: BP 151/81
[2018-03-24 05:09] LABS: BASOPHILS 0.6 % (0-2); EOSINOPHILS 9.3 % (0-7); HEMATOCRIT 33.2 % (36.0-48.0); HEMOGLOBIN 11.3 g/dL (12-16); IMMATURE GRANULOCYTES 0.4 % (0-5); LYMPHOCYTES 26.2 % (15-50); MCH 34.5 pg (26.0-34.0); MCV 101.2 fL (80.0-100.0); NEUTROPHILS 46.5 % (40-80); RBC 3.28 10x6/uL (4.00-5.40); RDW 13.9 % (11.5-14.5); WBC 5.1 10x3/uL (4.8-10.8)
[2018-03-24 05:14] LABS: PLATELET COUNT 288 10x3/uL (130-400)
[2018-03-24 05:40] LABS: CALC OSMOLALITY 270 mosm/kg (275-300); CALCIUM 7.8 mg/dL (8.5-10.1); CARBON DIOXIDE 27.9 mmol/L (21.0-32.0); CHLORIDE - SERUM 102 mmol/L (98-107); CREATININE - SERUM 0.5 mg/dL (0.6-1.3); GLUCOSE 122 mg/dL (74-106); MAGNESIUM - SERUM 1.4 mg/dL (1.8-2.4); PHENYTOIN (DILANTIN) 12.1 ug/mL (10.0-20.0); PHOSPHOROUS 2.3 mg/dL (2.5-4.9); POTASSIUM - SERUM 3.6 mmol/L (3.5-5.1); SODIUM 137 mmol/L (136-145); eGFR NON AFRICAN AMERICAN > 90 mL/min (90-120)
[2018-03-24 05:42] LABS: UREA NITROGEN 2 mg/dL (7-18)
[2018-03-24 08:25] VITALS: BP 132/73
[2018-03-24 11:30] VITALS: BP 152/76
[2018-03-24 16:00] VITALS: BP 85/61
[2018-03-24 20:03] VITALS: BP 120/70
[2018-03-25] VITALS: BP 155/78
[2018-03-25 06:10] LABS: BASOPHILS 0.4 % (0-2); EOSINOPHILS 6.4 % (0-7); HEMATOCRIT 31.8 % (36.0-48.0); HEMOGLOBIN 10.9 g/dL (12-16); IMMATURE GRANULOCYTES 0.2 % (0-5); LYMPHOCYTES 21.2 % (15-50); MCH 34.6 pg (26.0-34.0); MCHC 34.3 g/dL (31.0-37.0); MONOCYTES 13.9 % (2-11); NEUTROPHILS 57.9 % (40-80); PLATELET COUNT 300 10x3/uL (130-400); RBC 3.15 10x6/uL (4.00-5.40); RDW 14.4 % (11.5-14.5); WBC 4.8 10x3/uL (4.8-10.8)
[2018-03-25 06:27] LABS: CALC OSMOLALITY 270 mosm/kg (275-300); CALCIUM 8.3 mg/dL (8.5-10.1); CARBON DIOXIDE 26.7 mmol/L (21.0-32.0); CHLORIDE - SERUM 100 mmol/L (98-107); CREATININE - SERUM 0.6 mg/dL (0.6-1.3); GLUCOSE 116 mg/dL (74-106); POTASSIUM - SERUM 3.1 mmol/L (3.5-5.1); SODIUM 137 mmol/L (136-145); UREA NITROGEN 2 mg/dL (7-18); eGFR NON AFRICAN AMERICAN > 90 mL/min (90-120)
[2018-03-25 06:35] VITALS: BP 139/79
[2018-03-25 08:42] VITALS: BP 175/94
[2018-03-25 10:17] LABS: MAGNESIUM - SERUM 1.5 mg/dL (1.8-2.4)
[2018-03-25 10:19] LABS: PHOSPHOROUS 2.9 mg/dL (2.5-4.9)
[2018-03-25 10:53] LABS: ALBUMIN 2.4 g/dL (3.4-5.0); ALKALINE PHOSPHATASE 139 U/L (46-116); ALT (SGPT) 17 U/L (10-68); BILIRUBIN - TOTAL 0.29 mg/dL (0.2-1.3); CALC OSMOLALITY 265 mosm/kg (275-300); CALCIUM 8.1 mg/dL (8.5-10.1); CHLORIDE - SERUM 99 mmol/L (98-107); CREATININE - SERUM 0.6 mg/dL (0.6-1.3); GLUCOSE 133 mg/dL (74-106); POTASSIUM - SERUM 3.4 mmol/L (3.5-5.1); PROTEIN - SERUM 6.1 g/dL (6.4-8.2); SODIUM 134 mmol/L (136-145); UREA NITROGEN 2 mg/dL (7-18); eGFR NON AFRICAN AMERICAN > 90 mL/min (90-120)
[2018-03-25 11:55] VITALS: BP 156/76
[2018-03-25] MEDS ORDERED: PEPCID PO (12:40)
[2018-03-25] MEDS ORDERED: MULTI-DAY VITAM1 TAB PO (12:41)
[2018-03-25 15:38] VITALS: BP 165/73
== END 2018-03-25 17:01 | disposition home health service (06) | DRG 100 ==
LOC: D.ER 07:01 → D.EDHOLD 09:00 → D.MS 09:00 → OBSVTIME 09:01 → D.MS 09:18
PROVIDERS: Emergency Medicine; Family Medicine; Internal Medicine Nephrology
DX: G40.909 Epilepsy, unspecified, not intractable, without status epilepticus (principal); G93.41 Metabolic encephalopathy; E87.1 Hypo-osmolality and hyponatremia; E87.8 Other disorders of electrolyte and fluid balance, not elsewhere classified; E87.6 Hypokalemia; E83.42 Hypomagnesemia; I10 Essential (primary) hypertension; J44.9 Chronic obstructive pulmonary disease, unspecified

== ENCOUNTER 2018-04-02 16:45 | Inpatient (IN) | payer MEDICARE ==
[~2018-04-02] VITALS: Ht 152.4 cm; Wt 61.2 kg
[~2018-04-02 16:45] MED LIST changes: +MULTI-DAY VITAM1 TAB PO; +PEPCID PO
[2018-04-02 19:30] VITALS: BP 133/64
[2018-04-02 20:24] LABS: HEMATOCRIT 34.6 % (36.0-48.0); MCH 34.8 pg (26.0-34.0); MCHC 34.7 g/dL (31.0-37.0); MCV 100.3 fL (80.0-100.0); RBC 3.45 10x6/uL (4.00-5.40); WBC 20.9 10x3/uL (4.8-10.8)
[2018-04-02 20:25] LABS: MEAN PLATELET VOLUME 8.6 fL (7.4-10.4); PLATELET COUNT 468 10x3/uL (130-400)
[2018-04-02 20:33] LABS: APTT 31.3 SECONDS (22.8-39.4); INR 1.16 (0.85-1.17); PROTIME 14.3 SECONDS (11.6-15.0)
[2018-04-02 20:38] LABS: ALBUMIN 2.4 g/dL (3.4-5.0); ALKALINE PHOSPHATASE 208 U/L (46-116); ALT (SGPT) 23 U/L (10-68); BILIRUBIN - TOTAL 0.59 mg/dL (0.2-1.3); CALC OSMOLALITY 247 mosm/kg (275-300); CALCIUM 8.1 mg/dL (8.5-10.1); CARBON DIOXIDE 27.1 mmol/L (21.0-32.0); CHLORIDE - SERUM 89 mmol/L (98-107); CREATININE - SERUM 0.7 mg/dL (0.6-1.3); GLUCOSE 109 mg/dL (74-106); POTASSIUM - SERUM 4.9 mmol/L (3.5-5.1); PROTEIN - SERUM 6.1 g/dL (6.4-8.2); SODIUM 123 mmol/L (136-145); UREA NITROGEN 11 mg/dL (7-18); eGFR NON AFRICAN AMERICAN 89 mL/min (90-120)
[2018-04-02 20:53] LABS: CKMB 0.6 U/L (0.0-3.6); CREATINE KINASE 50 UL (21-215); PRO BNP 463 pg/mL (0-125)
[2018-04-02 20:56] LABS: TROPONIN-I < 0.017 ng/mL (0.000-0.060)
--- NOTE | 2018-04-02 21:40 | NUR ---
PT VERBALIZED DESIRE TO AMA. INFORMED PT THAT SHE SHOULD STAY FOR MEDICAL TREATMENT. STATES SHE WANTS TO GO HOME. NOTIFIED NIGEL YIN OF PT WISHES, NIGEL LE AND DR. BRUNNER AT BEDSIDE
[2018-04-02 21:47] LABS: LYMPHOCYTES 11 % (15-50); MONOCYTES 4 % (2-11); NEUTROPHILS 85 % (40-80); PLATELET ESTIMATE NORMAL
--- NOTE | 2018-04-02 23:05 | NUR ---
CENTRAL LINE PLACED BY NIGEL ESCOTO. PT TOLERATED FAIR
[2018-04-03] VITALS: BP 99/52
--- NOTE | 2018-04-03 00:08 | NUR ---
ZITHROMAX 500MG INFUSING ON TRANSPORT TO FLOOR
--- NOTE | 2018-04-03 00:34 | NUR ---
RECIEVED TO ROOM. ALERT WITH CONFUSION NOTED. RESP EVEN AN UNLABORED. NO DISTRESS NOTED. NON PRODUCTIVE COUGH. IV INFUSING TO RIGHT SUBCLVIAN WITHOUT REDNESS OR EDEMA NOTED. ORINETED TO ROOM. CLEMENTE RHONA ON. CL IN REACH
[2018-04-03 01:34] VITALS: BMI 26.4
--- NOTE | 2018-04-03 01:34 | NUR ---
ASSESSMENT PER ADMIT PACKET. IV PATENT RT IJ OF NS AT 100CC'S/HR. SITE CLEAR. BILAT. WHEEZES NOTED WITH NON-PRODUCTIVE COUGH. O2 ON 2 L/M PER NC.
[2018-04-03 05:38] VITALS: BP 100/56
[2018-04-03 05:41] LABS: BASOPHILS 0.1 % (0-2); EOSINOPHILS 0.7 % (0-7); HEMATOCRIT 30.7 % (36.0-48.0); HEMOGLOBIN 10.5 g/dL (12-16); IMMATURE GRANULOCYTES 0.3 % (0-5); LYMPHOCYTES 6.1 % (15-50); MCH 34.3 pg (26.0-34.0); MCHC 34.2 g/dL (31.0-37.0); MCV 100.3 fL (80.0-100.0); MEAN PLATELET VOLUME 8.7 fL (7.4-10.4); MONOCYTES 7.5 % (2-11); NEUTROPHILS 85.3 % (40-80); PLATELET COUNT 442 10x3/uL (130-400); RBC 3.06 10x6/uL (4.00-5.40); RDW 13.9 % (11.5-14.5)
[2018-04-03 05:52] LABS: WBC 14.7 10x3/uL (4.8-10.8)
[2018-04-03 05:55] LABS: CALC OSMOLALITY 259 mosm/kg (275-300); CALCIUM 7.8 mg/dL (8.5-10.1); CARBON DIOXIDE 25.8 mmol/L (21.0-32.0); CHLORIDE - SERUM 97 mmol/L (98-107); CREATININE - SERUM 0.6 mg/dL (0.6-1.3); GLUCOSE 97 mg/dL (74-106); SODIUM 130 mmol/L (136-145); UREA NITROGEN 10 mg/dL (7-18); eGFR NON AFRICAN AMERICAN > 90 mL/min (90-120)
--- NOTE | 2018-04-03 08:00 | NUR ---
ASSESSMENT PER FLOW SHEET. PT IS SLEEPY THIS AM. SCRATCHES ALL OVER HER BODY WITH BRUISES RANDOMLY. FALL PREVENTION IN PLACE WITH CLEMENTE
[2018-04-03 08:45] VITALS: BP 91/54
[2018-04-03 12:22] VITALS: Ht 152.4 cm; Wt 61.2 kg
[2018-04-03 12:45] VITALS: BP 130/67
[2018-04-03 16:37] VITALS: BP 118/58
[2018-04-03 20:00] VITALS: BP 127/64
--- NOTE | 2018-04-03 20:45 | NUR ---
AWAKE,ALERT.NO COMPLAITNS VOICED, SKIN WARM DRY. RESP EVEN AND UNLABOED NO DISTRESS NOTED. IV INFUSING TO RIGHT EXTERNAL JUGLAR WITHOUT REDNESS OR EDEMA NOTED. POSY RHONA ON. CL IN REACH
[2018-04-04 04:00] VITALS: BP 122/64
[2018-04-04 06:08] LABS: BASOPHILS 0.2 % (0-2); EOSINOPHILS 3.3 % (0-7); HEMATOCRIT 29.5 % (36.0-48.0); HEMOGLOBIN 9.9 g/dL (12-16); IMMATURE GRANULOCYTES 0.2 % (0-5); LYMPHOCYTES 11.9 % (15-50); MCH 34.6 pg (26.0-34.0); MCHC 33.6 g/dL (31.0-37.0); MEAN PLATELET VOLUME 8.8 fL (7.4-10.4); MONOCYTES 13.3 % (2-11); NEUTROPHILS 71.1 % (40-80); PLATELET COUNT 443 10x3/uL (130-400); RBC 2.86 10x6/uL (4.00-5.40); RDW 14.2 % (11.5-14.5)
[2018-04-04 06:36] LABS: MCV 103.1 fL (80.0-100.0); WBC 9.2 10x3/uL (4.8-10.8)
[2018-04-04 06:45] LABS: CALC OSMOLALITY 267 mosm/kg (275-300); CARBON DIOXIDE 25.3 mmol/L (21.0-32.0); CHLORIDE - SERUM 102 mmol/L (98-107); CREATININE - SERUM 0.6 mg/dL (0.6-1.3); GLUCOSE 99 mg/dL (74-106); POTASSIUM - SERUM 3.8 mmol/L (3.5-5.1); SODIUM 135 mmol/L (136-145); eGFR NON AFRICAN AMERICAN > 90 mL/min (90-120)
[2018-04-04 06:49] LABS: UREA NITROGEN 6 mg/dL (7-18)
[2018-04-04 08:45] VITALS: BP 114/64
[2018-04-04 12:45] VITALS: BP 156/62
[2018-04-04 14:27] LABS: APPEARANCE HAZY (CLEAR); BACTERIA MODERATE /hpf (NONE SEEN); BILIRUBIN NEGATIVE (NEGATIVE); COLOR YELLOW (YELLOW); EPITHELIAL CELLS 0-5 /hpf (0-5); GLUCOSE NEGATIVE (NEGATIVE); KETONE NEGATIVE (NEGATIVE); MUCUS <1+ /lpf (NONE SEEN); NITRITE NEGATIVE (NEGATIVE); PROTEIN NEGATIVE (NEGATIVE); RED CELLS - URINE RARE /hpf (0-5); SPECIFIC GRAVITY 1.015 (1.005-1.020); UROBILINOGEN NORMAL (NORMAL)
[2018-04-04 16:48] VITALS: BP 156/80
[2018-04-04 20:28] VITALS: BP 142/64
[2018-04-05 00:46] VITALS: BP 122/68
--- NOTE | 2018-04-05 03:19 | NUR ---
PT LYING IN BED RESTING, NO SIGNS OF DISTRESS. DENIES NEEDS. BED LOWEST POSITION. SRX2. CL IN REACH
[2018-04-05 05:24] VITALS: BP 132/81
[2018-04-05 07:22] LABS: BASOPHILS 0.7 % (0-2); EOSINOPHILS 7.1 % (0-7); HEMATOCRIT 29.5 % (36.0-48.0); HEMOGLOBIN 9.4 g/dL (12-16); IMMATURE GRANULOCYTES 0.4 % (0-5); LYMPHOCYTES 13.3 % (15-50); MCH 34.6 pg (26.0-34.0); MCHC 31.9 g/dL (31.0-37.0); MEAN PLATELET VOLUME 8.7 fL (7.4-10.4); MONOCYTES 13.5 % (2-11); PLATELET COUNT 392 10x3/uL (130-400); RBC 2.72 10x6/uL (4.00-5.40); RDW 14.6 % (11.5-14.5); WBC 7.1 10x3/uL (4.8-10.8)
[2018-04-05 07:24] LABS: MCV 108.5 fL (80.0-100.0)
--- NOTE | 2018-04-05 08:31 | NUR ---
ALERT WITH INTERMITTANT CONFUSION WITH SON IN ROOM. CLEMENTE MAT IN PLACE.LUNGS CLEAR AND DIMINISHEDX4 ANTERIOR. TELEMETRY INTACT. OLD GENERALIZED SCRATCHES TO UPPER TRUNK.ENCOURAGED TO USE CALL LIGHT FOR ASSIST. PT AND SON VERBALIZED UNDERSTANDING.
[2018-04-05 08:40] LABS: CALC OSMOLALITY 267 mosm/kg (275-300); CALCIUM 7.9 mg/dL (8.5-10.1); CARBON DIOXIDE 25.7 mmol/L (21.0-32.0); CHLORIDE - SERUM 103 mmol/L (98-107); CREATININE - SERUM 0.5 mg/dL (0.6-1.3); GLUCOSE 83 mg/dL (74-106); POTASSIUM - SERUM 3.7 mmol/L (3.5-5.1); SODIUM 136 mmol/L (136-145); eGFR NON AFRICAN AMERICAN > 90 mL/min (90-120)
[2018-04-05 08:41] LABS: UREA NITROGEN 4 mg/dL (7-18)
[2018-04-05] MEDS ORDERED: LEVAQUIN750 MG PO (10:22)
[2018-04-05] MEDS ORDERED: FLAGYL500 MG PO (10:23)
--- NOTE | 2018-04-05 19:15 | NUR ---
RECEIVED CARE FROM DAY NURSE. LYING IN BED ON SIDE. REQUEST HER NERVE PILL. CALL LIGHT AT SIDE. CLEMENTE MAT IN PLACE AND ARMED. RIGHT IJ INFUSING NS AT 30. RESP EVEN AND UNALBORED.
[2018-04-05 20:42] VITALS: BP 108/56
--- NOTE | 2018-04-05 21:10 | NUR ---
LEFT MESSAGE FOR SON OR FATHER TO CALL BACK ABOUT PT DC.
--- NOTE | 2018-04-05 22:50 | NUR ---
DRESSING TO RIGHT IJ COMING OFF. DRESSING CHANGE TO IJ USING MANAGER OF DEVELOPMENT.
--- NOTE | 2018-04-06 04:15 | NUR ---
RESTING QUITELY IN BED RESP UNLABORED IV INFUSING WITHOUT DIFFICULTY NO APPARENT DISTRESS
[2018-04-06 04:32] VITALS: BP 104/57
--- NOTE | 2018-04-06 10:25 | NUR ---
PATIENT REFUSED BREAKFAST BUT TOOK AM MEDS WITHOUT DIFFICULTY. IJ CENTRAL LINE DISCONTINUED WITH PRESSURE DRESSING APPLIED WITHOUT ACTIVE BLEEDING. DISCHARGED UNDER THE CARE OF LESA VOSS VIA POV. STABLE AT TIME OF DISCHARGE.
--- NOTE | 2018-04-06 15:15 | MORECARE ---
CASE MANAGEMENT DISCHARGE SUMMARY PATIENT: ABIODUN VOSS UNIT: [id number] ADM DATE: 04/02/18 AGE: 67 : 51 SEX: F ROOM/BED: D.2215 AUTHOR: SASHA MATTHEWS PHYSICIAN: REFERRING PHYSICIAN: KANDACE BRUNNER MD DATE OF SERVICE: 04/06/18 Discharge Plan Patient Name: ABIODUN VOSS Facility: [facility]:[place] : 1950 Planned Disposition: Home Anticipated Discharge Date: 04/05/18 Discharge Date: 04/06/2018 Expected LOS: 3 Initial Reviewer: [email or web address] Initial Review Date: 04/03/2018 Generated: 04/06/18 4:15 pm Patient Name: ABIODUN VOSS Page [id number] at 1515 All edits/amendments must be made on the electronic document DICTATION DATE: 04/06/18 1515 PURCHASE ANALYST: GRICELDA 04/06/18 1515 RPT#: [id number] DC DATE:04/06/18 STATUS: DIS IN [facility] [address] [place] [address] END OF REPORT
--- NOTE | 2018-04-06 15:22 | MORECARE ---
CASE MANAGEMENT DISCHARGE SUMMARY PATIENT: ABIODUN VOSS UNIT: [id number] ADM DATE: 04/02/18 AGE: 67 : 51 SEX: F ROOM/BED: D.2215 AUTHOR: SASHA MATTHEWS PHYSICIAN: REFERRING PHYSICIAN: KANDACE BRUNNER MD DATE OF SERVICE: 04/06/18 Discharge Plan Patient Name: ABIODUN VOSS Facility: [facility]:[place] : 1950 Planned Disposition: Home Anticipated Discharge Date: 04/05/18 Discharge Date: 04/06/2018 Expected LOS: 3 Initial Reviewer: [email or web address] Initial Review Date: 04/03/2018 Generated: 04/06/18 4:22 pm Comments DCP- Discharge Planning Updated by [email or web address]: Tianna Posey on 04/06/18 2:[address] LATE ENTRY 1100 DISCHARGED 03/25/2018. HAD HOME HEALTH ARRANGED AND PATIENT'S DECLINED. PATIENT DISCHARGED THIS EARLY AM. CM CALLED THE . NO ANSWER. LEFT VOICE MAIL WITH CONTACT PHONE NUMBER SHOULD HE DECIDES HE NEEDS HOME HEALTH. Last DP export: 04/06/18 2:15 pm Patient Name: ABIODUN VOSS Page [id number] at 1522 All edits/amendments must be made on the electronic document DICTATION DATE: 04/06/18 1521 CATTLE FARMER: GRICELDA 04/06/18 1521 RPT#: [id number] DC DATE:04/06/18 STATUS: DIS IN [facility] [address] [place] [address] END OF REPORT
== END 2018-04-06 10:27 | disposition home or self-care (01) | DRG 190 ==
LOC: D.ER 16:45 → D.MS 23:18 → D.EDHOLD 23:18 → D.MS 23:57
PROVIDERS: Family Medicine; ADMIT Internal Medicine Nephrology
DX: J44.0 Chronic obstructive pulmonary disease with (acute) lower respiratory infection (principal); J18.9 Pneumonia, unspecified organism; N39.0 Urinary tract infection, site not specified; A59.00 Urogenital trichomoniasis, unspecified; G40.909 Epilepsy, unspecified, not intractable, without status epilepticus; F10.10 Alcohol abuse, uncomplicated; D50.9 Iron deficiency anemia, unspecified; K25.9 Gastric ulcer, unspecified as acute or chronic, without hemorrhage or perforation

== ENCOUNTER 2018-04-16 17:45 | Emergency (ER) | payer MEDICARE, MEDICAID ==
[2018-04-03 12:22] VITALS: Ht 152.4 cm; Wt 50.0 kg
[~2018-04-16] VITALS: Ht 152.4 cm; Wt 50.0 kg
[~2018-04-16 17:45] MED LIST changes: +FLAGYL500 MG PO; +LEVAQUIN750 MG PO
[2018-04-16 18:19] LABS: APPEARANCE CLEAR (CLEAR); COLOR YELLOW (YELLOW); NITRITE NEGATIVE (NEGATIVE)
[2018-04-16 18:20] LABS: BILIRUBIN NEGATIVE (NEGATIVE); GLUCOSE NEGATIVE (NEGATIVE); KETONE SMALL mg/dL (NEGATIVE); PROTEIN TRACE mg/dL (NEGATIVE); UROBILINOGEN NORMAL (NORMAL)
[2018-04-16 19:56] LABS: BASOPHILS 0.8 % (0-2); EOSINOPHILS 6.1 % (0-7); HEMATOCRIT 34.5 % (36.0-48.0); HEMOGLOBIN 11.9 g/dL (12-16); IMMATURE GRANULOCYTES 0.3 % (0-5); LYMPHOCYTES 35.2 % (15-50); MCH 34.4 pg (26.0-34.0); MCHC 34.5 g/dL (31.0-37.0); MCV 99.7 fL (80.0-100.0); MEAN PLATELET VOLUME 8.8 fL (7.4-10.4); MONOCYTES 8.3 % (2-11); NEUTROPHILS 49.3 % (40-80); RBC 3.46 10x6/uL (4.00-5.40); RDW 14.9 % (11.5-14.5); WBC 3.8 10x3/uL (4.8-10.8)
[2018-04-16 20:00] LABS: PLATELET COUNT 287 10x3/uL (130-400)
[2018-04-16 21:34] LABS: ALBUMIN 2.7 g/dL (3.4-5.0); ALKALINE PHOSPHATASE 100 U/L (46-116); ALT (SGPT) 29 U/L (10-68); AMYLASE - SERUM 49 U/L (25-115); BILIRUBIN - TOTAL 0.17 mg/dL (0.2-1.3); CALC OSMOLALITY 276 mosm/kg (275-300); CALCIUM 8.1 mg/dL (8.5-10.1); CARBON DIOXIDE 28.9 mmol/L (21.0-32.0); CHLORIDE - SERUM 103 mmol/L (98-107); CREATININE - SERUM 0.6 mg/dL (0.6-1.3); GLUCOSE 81 mg/dL (74-106); LIPASE 122 U/L (73-393); SODIUM 141 mmol/L (136-145); UREA NITROGEN 4 mg/dL (7-18); eGFR NON AFRICAN AMERICAN > 90 mL/min (90-120)
[2018-04-16 21:35] LABS: POTASSIUM - SERUM 2.8 mmol/L (3.5-5.1); TROPONIN-I < 0.017 ng/mL (0.000-0.060)
[2018-04-16 22:12] LABS: UDS - AMPHET NEGATIVE QUAL (NEGATIVE); UDS - BARB NEGATIVE QUAL (NEGATIVE); UDS - BENZO NEGATIVE QUAL (NEGATIVE); UDS - COCAINE NEGATIVE QUAL (NEGATIVE); UDS - OPIATE POSITIVE QUAL (NEGATIVE); UDS - PCP NEGATIVE QUAL (NEGATIVE); UDS - THC NEGATIVE QUAL (NEGATIVE)
[2018-04-17 00:20] VITALS: BP 123/66
== END 2018-04-17 00:20 | disposition home or self-care (01) ==
LOC: D.ER 17:45
PROVIDERS: Emergency Medicine; Family Medicine
DX: R19.7 Diarrhea, unspecified (principal); R10.9 Unspecified abdominal pain; E87.6 Hypokalemia; Z86.73 Personal history of transient ischemic attack (TIA), and cerebral infarction without residual deficits; G40.909 Epilepsy, unspecified, not intractable, without status epilepticus; I10 Essential (primary) hypertension; J44.9 Chronic obstructive pulmonary disease, unspecified

== ENCOUNTER 2018-10-27 14:25 | Emergency (ER) | payer MEDICARE, MEDICAID ==
[~2018-10-27] VITALS: Ht 152.4 cm; Wt 48.1 kg
[2018-10-27 14:58] VITALS: Ht 152.4 cm; Wt 48.1 kg
[2018-10-27] MEDS ORDERED: LISINOPRIL10 MG PO (15:03)
[2018-10-27] MEDS ORDERED: ROBAXIN500 MG PO (17:21)
[2018-10-27 18:07] VITALS: BP 141/78
== END 2018-10-27 18:05 | disposition home or self-care (01) ==
LOC: D.ER 14:25
DX: S70.02XA Contusion of left hip, initial encounter (principal); X58.XXXA Exposure to other specified factors, initial encounter; Q65.89 Other specified congenital deformities of hip; Z86.73 Personal history of transient ischemic attack (TIA), and cerebral infarction without residual deficits; J44.9 Chronic obstructive pulmonary disease, unspecified; I10 Essential (primary) hypertension

== ENCOUNTER 2018-12-29 10:31 | Observation (INO) | payer MEDICARE, MEDICAID ==
[~2018-12-29] VITALS: Ht 152.4 cm; Wt 44.9 kg
[~2018-12-29 10:31] MED LIST changes: +ROBAXIN500 MG PO
[2018-12-29 11:53] LABS: BASOPHILS 0.6 % (0-2); EOSINOPHILS 5.2 % (0-7); HEMATOCRIT 31.3 % (36.0-48.0); HEMOGLOBIN 10.3 g/dL (12-16); IMMATURE GRANULOCYTES 0.2 % (0-5); LYMPHOCYTES 14.6 % (15-50); MCH 29.3 pg (26.0-34.0); MCHC 32.9 g/dL (31.0-37.0); MCV 88.9 fL (80.0-100.0); MONOCYTES 15.5 % (2-11); NEUTROPHILS 63.9 % (40-80); PLATELET COUNT 309 10x3/uL (130-400); RBC 3.52 10x6/uL (4.00-5.40); RDW 16.7 % (11.5-14.5); WBC 4.9 10x3/uL (4.8-10.8)
[2018-12-29 12:20] LABS: UDS - AMPHET NEGATIVE QUAL (NEGATIVE); UDS - BARB NEGATIVE QUAL (NEGATIVE); UDS - BENZO NEGATIVE QUAL (NEGATIVE); UDS - COCAINE NEGATIVE QUAL (NEGATIVE); UDS - OPIATE NEGATIVE QUAL (NEGATIVE); UDS - PCP NEGATIVE QUAL (NEGATIVE); UDS - THC NEGATIVE QUAL (NEGATIVE)
[2018-12-29 12:22] LABS: APPEARANCE CLEAR (CLEAR); BILIRUBIN NEGATIVE (NEGATIVE); COLOR YELLOW (YELLOW); GLUCOSE NEGATIVE (NEGATIVE); KETONE NEGATIVE (NEGATIVE); NITRITE NEGATIVE (NEGATIVE); PROTEIN NEGATIVE (NEGATIVE); SPECIFIC GRAVITY 1.005 (1.005-1.020); UROBILINOGEN NORMAL (NORMAL)
--- NOTE | 2018-12-29 12:44 | NUR ---
PT LYING IN BED, RESPIRATIONS EVEN AND UNLABORED. PT REMAINS ORIENTED TO PERSON WHEN AWAKE. NO NEURO CHANGES SINCE INITIAL ASSESSMENT.
[2018-12-29 14:25] LABS: ALBUMIN 3.4 g/dL (3.4-5.0); ALKALINE PHOSPHATASE 182 U/L (46-116); ALT (SGPT) 19 U/L (10-68); BILIRUBIN - TOTAL 0.35 mg/dL (0.2-1.3); CALC OSMOLALITY 260 mosm/kg (275-300); CALCIUM 8.4 mg/dL (8.5-10.1); CARBON DIOXIDE 21.7 mmol/L (21.0-32.0); CHLORIDE - SERUM 98 mmol/L (98-107); CKMB 0.7 U/L (0.0-3.6); CREATINE KINASE 43 UL (21-215); CREATININE - SERUM 0.5 mg/dL (0.6-1.3); GLUCOSE 84 mg/dL (74-106); MAGNESIUM - SERUM 1.8 mg/dL (1.8-2.4); POTASSIUM - SERUM 4.4 mmol/L (3.5-5.1); PROTEIN - SERUM 6.8 g/dL (6.4-8.2); SODIUM 132 mmol/L (136-145); THYROID STIMULATING HORMONE 3.37 uIU/mL (0.36-3.74); TROPONIN-I < 0.017 ng/mL (0.000-0.060); UREA NITROGEN 5 mg/dL (7-18); eGFR NON AFRICAN AMERICAN > 90 mL/min (90-120)
--- NOTE | 2018-12-29 16:14 | NUR ---
PT ALERT, MORE SO THAN SHE HAS BEEN FOR THE DURATION OF ED VISIT. PT ORIENTED TO PERSON AND PLACE. PT GIVEN FOOD REQUESTED. REPIRATIONS EVEN AND UNLABORED. PT CONTINUES TO SMACK HER LIPS IN A VERY APPARENT MANNER, SHE HAS SINCE ARRIVAL, ALONG WITH CONTINUOUSLY TILTING HER HEAD SIDE TO SIDE. PER PT'S THIS IS "NORMAL" FOR PT. PT AWARE SHE IS BEING ADMITTED, AWAITING BED ASSIGNMENT.
[2018-12-29 16:36] VITALS: BP 124/73
[2018-12-29 19:44] VITALS: BP 124/73; BMI 19.3
--- NOTE | 2018-12-29 20:00 | NUR ---
ASSESSMENT PER FLOWSHEET. IV PATENT RT ANKLE WITH NS AT 125CC'S/HR. O2 SAT=76-80% ON ROOM AIR PLACED ON O2 AT 2L/M PER NC.CLEMENTE MAT TO BED WITH ALARMS SET. RT SIDED WEAKNESS. PRODUCTIVE COUGH. ASSESSMENT PER ADMIT PACKET.
[2018-12-29] MEDS ORDERED: TRAZODONE HCL150 MG PO (20:14)
[2018-12-29] MEDS ORDERED: NEURONTIN 300300 MG PO (20:16)
[2018-12-29] MEDS ORDERED: EFFEXOR75 MG PO (20:16)
--- NOTE | 2018-12-29 22:00 | NUR ---
PLACED ON BEDPAN VOIDED.
[2018-12-29 22:28] VITALS: BP 119/65
[2018-12-29 22:47] LABS: CKMB 0.9 U/L (0.0-3.6); CREATINE KINASE 46 UL (21-215)
[2018-12-29 22:48] LABS: TROPONIN-I < 0.017 ng/mL (0.000-0.060)
[2018-12-30] VITALS: BP 125/75
--- NOTE | 2018-12-30 01:04 | NUR ---
REMAINS AWAKE CONFUSED. SR UP X3 CALL LIGHT WITHIN REACH.
[2018-12-30 04:00] LABS: BASOPHILS 1.1 % (0-2); EOSINOPHILS 7.7 % (0-7); HEMATOCRIT 28.7 % (36.0-48.0); HEMOGLOBIN 9.3 g/dL (12-16); IMMATURE GRANULOCYTES 0.3 % (0-5); LYMPHOCYTES 29.1 % (15-50); MCH 29.4 pg (26.0-34.0); MCHC 32.4 g/dL (31.0-37.0); MCV 90.8 fL (80.0-100.0); MEAN PLATELET VOLUME 8.8 fL (7.4-10.4); MONOCYTES 16.8 % (2-11); PLATELET COUNT 309 10x3/uL (130-400); RBC 3.16 10x6/uL (4.00-5.40); RDW 16.8 % (11.5-14.5); WBC 3.8 10x3/uL (4.8-10.8)
[2018-12-30 04:19] LABS: % SATURATION 19 % (15-55); IRON 57 ug/dl (35-150); TOTAL IRON BIND CAPACITY 298 ug/dl (260-445); UNSAT IRON BIND CAPACITY 241 ug/dl (150-375)
[2018-12-30 04:47] LABS: ALKALINE PHOSPHATASE 161 U/L (46-116); ALT (SGPT) 18 U/L (10-68); BILIRUBIN - TOTAL 0.36 mg/dL (0.2-1.3); CALCIUM 7.9 mg/dL (8.5-10.1); CHLORIDE - SERUM 103 mmol/L (98-107); CKMB 0.9 U/L (0.0-3.6); CREATINE KINASE 40 UL (21-215); CREATININE - SERUM 0.6 mg/dL (0.6-1.3); FERRITIN 21 ng/mL (3-244); GLUCOSE 85 mg/dL (74-106); MAGNESIUM - SERUM 1.7 mg/dL (1.8-2.4); POTASSIUM - SERUM 3.8 mmol/L (3.5-5.1); PROTEIN - SERUM 6.2 g/dL (6.4-8.2); SODIUM 136 mmol/L (136-145); eGFR NON AFRICAN AMERICAN > 90 mL/min (90-120)
[2018-12-30 05:12] LABS: CALC OSMOLALITY 268 mosm/kg (275-300); CARBON DIOXIDE 27.2 mmol/L (21.0-32.0); TROPONIN-I < 0.017 ng/mL (0.000-0.060); UREA NITROGEN 8 mg/dL (7-18)
[2018-12-30 06:13] VITALS: BP 112/68
--- NOTE | 2018-12-30 07:15 | NUR ---
PATIENT RECIEVED RESTING IN BED WITH EYES CLOSED, AROUSES EASILY BUT PATIENT IS VERY DROWSEY. IN [facility]
[2018-12-30 08:47] VITALS: BP 147/81
[2018-12-30 10:22] LABS: CKMB 0.8 U/L (0.0-3.6); CREATINE KINASE 38 UL (21-215)
[2018-12-30 10:23] LABS: TROPONIN-I < 0.017 ng/mL (0.000-0.060)
[2018-12-30 12:36] VITALS: BP 115/81
[2018-12-30 13:17] VITALS: Ht 152.4 cm; Wt 44.9 kg
[2018-12-30] MEDS ORDERED: ROBAXIN500 MG PO (15:21)
--- NOTE | 2018-12-30 15:33 | MORECARE ---
CASE MANAGEMENT DISCHARGE SUMMARY PATIENT: ABIODUN HINKLE UNIT: [id number] ADM DATE: 12/29/18 AGE: 68 : 51 SEX: F ROOM/BED: D.2223 AUTHOR: BYRON,DOC PHYSICIAN: REFERRING PHYSICIAN: CINDI BERRY MD DATE OF SERVICE: 12/30/18 Discharge Plan Patient Name: ABIODUN HINKLE Facility: [facility]:[place] : 1950 Planned Disposition: Home Anticipated Discharge Date: 12/30/18 Discharge Date: Expected LOS: 1 Initial Reviewer: [email or web address] Initial Review Date: 12/30/2018 Generated: 12/30/18 4:33 pm DCP- Discharge Planning Updated by [email or web address]: Kiesha Moses on 12/30/18 2:[address] Patient Name: ABIODUN HINKLE Admission Status: Elective Accout number: [id number] Admission Date: 12-29-2018 : 1950 Admission Diagnosis: Attending: CINDI BERRY Current LOS: 1 Anticipated DC Date: 12-30-2018 Planned Disposition: Home Primary Insurance: MEDICARE A & B Discharge Planning Comments: CM met with patient to complete initial dc planning assessment. CM educated patient on the CM role and verbal consent given by patient to complete assessment. Patient lives at home with her . At discharge patient plans to return and feels this is a safe discharge. CM discussed availability of home health, rehab services, and medical equipment. Patient denied known discharge needs at this time. Her is here and states he will drive her home. I spoke with ST and they are going to see her today. Anticipate to discharge home today. CM will continue to follow and will assist as needed with dc plans/needs. Associate Professor Of Automation: Kiesha Moses DCPIA - Discharge Planning Initial Assessment Updated by [email or web address]: Kiesha Moses on 12/30/18 3:27 pm * Is the patient Alert and Oriented? Yes * How many steps to enter\exit or inside your home? Ramp/0 * PCP [facility] - Laure Garcia * Preadmission Environment Home with Family * ADLs Independent * Equipment Bedside Commode * List name and contact numbers for known caregivers / representatives who currently or will assist patient after discharge: Layo Hinkle - [facility] - [phone] * Verbal permission to speak to the caregivers and representatives has been obtained from the patient. Yes * Community resources currently utilized None * Additional services required to return to the preadmission environment? No * Can the patient safely return to the preadmission environment? Yes * Has this patient been hospitalized within the prior 30 days at any hospital? No Coverage Notice Reviewer: [id number] Yuni Cee Notice Issued Date-Time: 12/29/2018 15:47 Notice Type: Medicare Outpatient Observation Notice Notice Delivered To: Patient Relationship to Patient: Loan Reviewer Name: Delivery Method: HAND - Hand Delivered Shaye Days: Prior Verbal Notification: Recipient Understood Notice: Recipient Signature: Med Rec Note Co-signed by Attending: Coverage Notice Comment: Patient Name: ABIODUN HINKLE Page 17226 at 1533 All edits/amendments must be made on the electronic document DICTATION DATE: 12/30/181532 PROFESSOR OF PUBLIC ADMINISTRATION: GRICELDA 12/30/181532 RPT#: [id number] DC DATE: STATUS: ADM IN [facility] [address] [place] [address] END OF REPORT
[2018-12-30 16:33] VITALS: BP 148/79
--- NOTE | 2018-12-30 17:13 | NUR ---
IV REMOVED WITH NO REDNESS OR EDEMA. DISCHARGE INSTRUCTIONS DISCUSSED IN DEPTH WITH PATIENT AND TO HOLD DILANTIN FOR 2 DAYS AND HAVE LEVEL RECHECKED SATURDAY AND SATURDAY. PATIENT AND BOTH VOICED UNDERSTANDING. PATIENT TAKEN BY WHEELCHAIR TO PRIVATE CAR.
--- NOTE | 2018-12-31 14:52 | MORECARE ---
CASE MANAGEMENT DISCHARGE SUMMARY PATIENT: ABIODUN HINKLE UNIT: [id number] ADM DATE: 12/29/18 AGE: 68 : 52 SEX: F ROOM/BED: D.2223 AUTHOR: BYRON,DOC PHYSICIAN: REFERRING PHYSICIAN: CINDI BERRY MD DATE OF SERVICE: 12/31/18 Discharge Plan Patient Name: ABIODUN HINKLE Facility: [facility]:[place] : 1950 Planned Disposition: Home Anticipated Discharge Date: 12/30/18 Discharge Date: 12/30/2018 Expected LOS: 1 Initial Reviewer: [email or web address] Initial Review Date: 12/30/2018 Generated: 12/31/18 3:51 pm DCP- Discharge Planning Updated by [email or web address]: Kiesha Moses on 12/30/18 2:[address] Patient Name: ABIODUN HINKLE Admission Status: Elective Accout number: [id number] Admission Date: 12-29-2018 : 1950 Admission Diagnosis: Attending: CINDI BERRY Current LOS: 1 Anticipated DC Date: 12-30-2018 Planned Disposition: Home Primary Insurance: MEDICARE A & B Discharge Planning Comments: CM met with patient to complete initial dc planning assessment. CM educated patient on the CM role and verbal consent given by patient to complete assessment. Patient lives at home with her . At discharge patient plans to return and feels this is a safe discharge. CM discussed availability of home health, rehab services, and medical equipment. Patient denied known discharge needs at this time. Her is here and states he will drive her home. I spoke with ST and they are going to see her today. Anticipate to discharge home today. CM will continue to follow and will assist as needed with dc plans/needs. Briar Wood Sorter: Kiesha Moses DCPIA - Discharge Planning Initial Assessment Updated by [email or web address]: Kiesha Moses on 12/30/18 3:27 pm * Is the patient Alert and Oriented? Yes * How many steps to enter\exit or inside your home? Ramp/0 * PCP [facility] - Laure Garcia * Preadmission Environment Home with Family * ADLs Independent * Equipment Bedside Commode * List name and contact numbers for known caregivers / representatives who currently or will assist patient after discharge: Layo Hinkle - [facility] - [phone] * Verbal permission to speak to the caregivers and representatives has been obtained from the patient. Yes * Community resources currently utilized None * Additional services required to return to the preadmission environment? No * Can the patient safely return to the preadmission environment? Yes * Has this patient been hospitalized within the prior 30 days at any hospital? No Coverage Notice Reviewer: [email or web address] Yuni Cee Notice Issued Date-Time: 12/29/2018 15:47 Notice Type: Medicare Outpatient Observation Notice Notice Delivered To: Patient Relationship to Patient: Pharmacy Technician Instructor Name: Delivery Method: HAND - Hand Delivered Shaye Days: Prior Verbal Notification: Recipient Understood Notice: Recipient Signature: Med Rec Note Co-signed by Attending: Coverage Notice Comment: Reviewer: [email or web address] - Kiesha Moses Notice Issued Date-Time: 12/30/2018 15:00 Notice Type: Medicare Outpatient Observation Notice Notice Delivered To: Patient Relationship to Patient: Self Pharmacy Technician Instructor Name: Delivery Method: HAND - Hand Delivered Shaye Days: Prior Verbal Notification: Recipient Understood Notice: Yes Recipient Signature: Yes Med Rec Note Co-signed by Attending: Coverage Notice Comment: ZACKARY explained, signed, given, copy placed in MR Last DP export: 12/30/18 2:33 p Patient Name: ABIODUN HINKLE Page 12511 at 1452 All edits/amendments must be made on the electronic document DICTATION DATE: 12/31/181450 PROFESSOR OF FINANCE: GRICELDA 12/31/18 145 RPT#: [id number] DC DATE:12/30/18 STATUS: DIS IN [facility] [address] [place] [address] END OF REPORT
== END 2018-12-30 17:24 | disposition home or self-care (01) ==
LOC: D.ER 10:31 → D.M2 15:26 → OBSVTIME 16:29 → D.EDHOLD 16:33 → D.MS 17:12
PROVIDERS: Family Medicine; ADMIT Family Medicine; ATTEND Family Medicine
DX: G93.41 Metabolic encephalopathy (principal); G24.01 Drug induced subacute dyskinesia; F10.10 Alcohol abuse, uncomplicated; Y90.0 Blood alcohol level of less than 20 mg/100 ml; Z91.19 Patient's noncompliance with other medical treatment and regimen; G40.909 Epilepsy, unspecified, not intractable, without status epilepticus; E87.1 Hypo-osmolality and hyponatremia; I10 Essential (primary) hypertension; J44.9 Chronic obstructive pulmonary disease, unspecified; H40.9 Unspecified glaucoma; Z86.73 Personal history of transient ischemic attack (TIA), and cerebral infarction without residual deficits; D64.9 Anemia, unspecified; F32.9 Major depressive disorder, single episode, unspecified; F41.9 Anxiety disorder, unspecified